=== PATIENT | female | born 1965 | race Caucasian/White ===

== ENCOUNTER 2018-03-02 11:04 | Emergency (ER) | payer SELFPAY ==
[~2018-03-02] VITALS: Ht 165.1 cm; Wt 104.2 kg
[2018-03-02 11:10] VITALS: Ht 165.1 cm; Wt 104.2 kg
[2018-03-02] MEDS ORDERED: ONDANSETRON INJ 2 MG/ML 2 ML VIAL IV STA (11:17)
[2018-03-02] MEDS ORDERED: SODIUM CHLORIDE 0.9% 1000ML 2,000 ML IV STA (11:17)
[2018-03-02] MEDS ORDERED: FAMOTIDINE 20 MG TAB PO ONE (11:30)
--- NOTE | 2018-03-02 11:34 | EMERGENCY ROOM VISIT NOTE ---
History Report prepared by Blanca: Dylon Go Under the Supervision of: Dr. Kevin Johnson M.D. First contact with patient: 11:14 Chief Complaint: VOMITING Stated Complaint: VOMITING,CHILLS,FEVER History of Present Illness The patient is a 52 year old female who presents to the Emergency Room with complaints of worsening vomiting for the past week. She additionally notes that she has fever, chills, body aches, and shortness of breath while vomiting. She states that she had a colonoscopy 5 days ago, and the aches and pains started before that. She denies any diarrhea, chest pain, burning with urination, and cough. The patient states that she called her PCP this morning, and they told her to come to the ED for evaluation. She states that she has hypertension, and her medications have been changed recently due to her pressure being too low. The patient denies any alcohol use, smoking, marijuana use, and any other drug use. She denies any recent tick bites. Source of History: patient Onset: a week ago Position: other (generalized) Quality: other (vomiting) Timing: worsening Associated Symptoms: + fevers, + chills, + SOB, No cough, No chest pain, No diarrhea Note: Associated symptoms: Body aches Review of Systems See HPI for pertinent positives and negatives. A total of ten systems were reviewed and were otherwise negative. Past Medical & Surgical Medical Problems: (1) HTN (hypertension) Surgical Problems: (1) H/O tubal ligation Family History Cancer Hypertension Social History Smoking Status: Never Smoker Marital Status: Housing Status: lives with family Occupation Status: employed Current/Historical Medications Scheduled Famotidine (Pepcid), 20 MG PO BID Ondasetron Odt (Zofran Odt), 4 MG SL Q6H Miscellaneous Medications Lisinopril/Hctz (Zestoretic 20MG/12.5MG), 1 TAB PO Physical Exam Vital Signs Date Time Temp Pulse Resp B/P (MAP) Pulse Ox O2 Delivery O2 Flow Rate FiO2 03/02/18 16:32 85 17 128/77 95 03/02/18 14:50 38.9 101 20 122/59 93 Room Air 03/02/18 12:55 103 16 142/85 94 Room Air 03/02/18 12:13 99 03/02/18 11:10 39.1 110 18 115/68 95 Room Air Physical Exam GENERAL: Awake, alert, fatigued-appearing, in no distress HENT: Normocephalic, atraumatic. Dry mucous membranes otherwise oropharynx unremarkable. EYES: Normal conjunctiva. Sclera non-icteric. NECK: Supple. No nuchal rigidity. FROM. No JVD. RESPIRATORY: Clear to auscultation. CARDIAC: Regular rate, normal rhythm. Extremities warm and well perfused. Pulses equal. ABDOMEN: Mild epigastric discomfort no discrete tenderness. Negative Bravo's sign. Soft, non-distended. No rebound or guarding. No masses. RECTAL: Deferred. MUSCULOSKELETAL: Chest examination reveals no tenderness. The back is symmetrical on inspection without obvious abnormality. There is no CVA tenderness to palpation. No joint edema. LOWER EXTREMITIES: Calves are equal size bilaterally and non-tender. No edema. No discoloration. NEURO: Normal sensorium. No sensory or motor deficits noted. SKIN: No rash or jaundice noted. Medical Decision & Procedures ER Provider Diagnostic Interpretation: Radiology results as stated below per my review and radiologist interpretation: SINGLE VIEW CHEST CLINICAL HISTORY: Generalized abdominal pain. FINDINGS: An AP, portable, upright chest radiograph is obtained. No prior studies are available for comparison at the time of dictation. The examination is degraded by portable technique, large body habitus, and patient rotation. The cardiomediastinal silhouette is unremarkable. The lungs and pleural spaces are clear. No pneumothorax is seen. The bony thorax is grossly intact. IMPRESSION: No active disease in the chest. Electronically signed by: Srinivasan Argueta M.D. 03/02/2018 11:52 AM Dictated Date/Time: 03/02/2018 11:52 AM Laboratory Results 03/02/18 11:40 Red Blood Count 3.95, Mean Corpuscular Volume 83.3, Mean Corpuscular Hemoglobin 29.6, Mean Corpuscular Hemoglobin Concent 35.6, Mean Platelet Volume 9.7, Neutrophils (%) (Auto) 42.1, Lymphocytes (%) (Auto) 47.0, Monocytes (%) (Auto) 8.2, Eosinophils (%) (Auto) 0.2, Basophils (%) (Auto) 2.2, Neutrophils # (Auto) 2.45, Lymphocytes # (Auto) 2.74, Monocytes # (Auto) 0.48, Eosinophils # (Auto) 0.01, Basophils # (Auto) 0.13 03/02/18 11:40 Test 03/02/18 11:37 03/02/18 11:40 03/02/18 13:29 Influenza Type A (RT-PCR) Neg for Influ A (NEG) Influenza Type B (RT-PCR) Neg for Influ B (NEG) White Blood Count 5.83 K/uL (4.8-10.8) Red Blood Count 3.95 M/uL (4.2-5.4) Hemoglobin 11.7 g/dL (12.0-16.0) Hematocrit 32.9 % (37-47) Mean Corpuscular Volume 83.3 fL (80-100) Mean Corpuscular Hemoglobin 29.6 pg (25-34) Mean Corpuscular Hemoglobin Concent 35.6 g/dl (32-36) Platelet Count 153 K/uL (130-400) Mean Platelet Volume 9.7 fL (7.4-10.4) Neutrophils (%) (Auto) 42.1 % Lymphocytes (%) (Auto) 47.0 % Monocytes (%) (Auto) 8.2 % Eosinophils (%) (Auto) 0.2 % Basophils (%) (Auto) 2.2 % Neutrophils # (Auto) 2.45 K/uL (1.4-6.5) Lymphocytes # (Auto) 2.74 K/uL (1.2-3.4) Monocytes # (Auto) 0.48 K/uL (0.11-0.59) Eosinophils # (Auto) 0.01 K/uL (0-0.5) Basophils # (Auto) 0.13 K/uL (0-0.2) RDW Standard Deviation 38.1 fL (36.4-46.3) RDW Coefficient of Variation 12.5 % (11.5-14.5) Immature Granulocyte % (Auto) 0.3 % Immature Granulocyte # (Auto) 0.02 K/uL (0.00-0.02) Anion Gap 6.0 mmol/L (3-11) Est Creatinine Clear Calc Drug Dose 80.6 ml/min Estimated GFR () 76.1 Estimated GFR (Non- 65.6 BUN/Creatinine Ratio 8.3 (10-20) Calcium Level 8.1 mg/dl (8.5-10.1) Magnesium Level 2.0 mg/dl (1.8-2.4) Total Bilirubin 0.6 mg/dl (0.2-1) Direct Bilirubin 0.2 mg/dl (0-0.2) Aspartate Amino Transf (AST/SGOT) 67 U/L (15-37) Alanine Aminotransferase (ALT/SGPT) 50 U/L (12-78) Alkaline Phosphatase 89 U/L (45-117) Total Protein 7.3 gm/dl (6.4-8.2) Albumin 3.1 gm/dl (3.4-5.0) Lipase 115 U/L (73-393) Human Chorionic Gonadotropin, Qual NEG (NEG) Urine Color DK YELLOW Urine Appearance CLOUDY (CLEAR) Urine pH 5.5 (4.5-7.5) Urine Specific [place] 1.024 (1.000-1.030) Urine Protein 2+ (NEG) Urine Glucose (UA) NEG (NEG) Urine Ketones TRACE (NEG) Urine Occult Blood NEG (NEG) Urine Nitrite NEG (NEG) Urine Bilirubin NEG (NEG) Urine Urobilinogen NEG (NEG) Urine Leukocyte Esterase TRACE (NEG) Urine WBC (Auto) 1-5 /hpf (0-5) Urine RBC (Auto) 0-4 /hpf (0-4) Urine Hyaline Casts (Auto) /lpf (0-5) Urine Epithelial Cells (Auto) 5-10 /lpf (0-5) Urine Bacteria (Auto) NEG (NEG) Urine Crystals AMORPHOUS SEDIMENT (NONE Urine Pathogenic Casts /lpf (0) Urine Mucus PRESENT (NONE PRSENT) Laboratory results reviewed by me Medications Administered Medications (Trade) Dose Ordered Sig/Calista Route Start Time Stop Time Status Last Admin Dose Admin Sodium Chloride 2,000 ml @ 999 mls/hr Q2H1M STAT IV 03/02/18 11:17 03/02/18 13:17 DC 03/02/18 11:55 999 MLS/HR Ondansetron HCl (Zofran Inj) 4 mg NOW STAT IV 03/02/18 11:17 03/02/18 11:23 DC 03/02/18 11:54 4 MG Famotidine (Pepcid Tab) 20 mg NOW ONCE PO 03/02/18 11:30 03/02/18 11:31 DC 03/02/18 11:54 20 MG Acetaminophen (Tylenol Tab) 1,000 mg NOW STAT PO 03/02/18 13:30 03/02/18 13:31 DC 03/02/18 13:36 1,000 MG Ketorolac Tromethamine (Toradol Inj) 15 mg NOW STAT IV 03/02/18 15:36 03/02/18 15:37 DC 03/02/18 16:14 15 MG ECG Per My Interpretation Indication: vomiting Rate (beats per minute): 101 Rhythm: sinus tachycardia Findings: no acute ischemic change, other (normal axis) ED Course 1114: The patient was evaluated in room C8. A complete history and physical exam was performed. 1332: I reevaluated the patient, and she was doing okay. 1612: I reevaluated the patient. Discussed results and discharge instructions: she verbalized understanding and agreement. The patient is ready for discharge. Medical Decision I reviewed the patient's past medical history, medications, and the nursing notes as described above. Differential diagnosis: Etiologies such as gastroenteritis, food borne illness, infections, appendicitis , diverticulitis, inflammatory bowel disease, obstruction, GI bleed, biliary pathology, as well as others were entertained. The patient is a 52 y/o woman who presents to the emergency department with f/c , n/v over the past week per HPI. On arrival the patient is fatigue and uncomfortable but in NAD, febrile to 39.1, HR 110s and BP otherwise stable. On exam has mild epigastric discomfort without discrete ttp. Negative Bravo's sign. EKG unremarkable. CXR negative. WBC wnl. Patient feeling improved after IVF, zofran, pepcid, APAP, toradol. HR improved to 80s. Flu negative. Sx likely related to viral GI illness. Plan for pcp f/u. Patient has appointment already scheduled for tomorrow. Findings and plan for follow-up reviewed with patient. Patient agreeable and d/c'd per discharge instructions. Medication Reconcilliation Current Medication List: was personally reviewed by me Blood Pressure Screening Patient's blood pressure: Normal blood pressure Impression Primary Impression: Nausea & vomiting Additional Impression: Gastritis Scribe Attestation The scribe's documentation has been prepared under my direction and personally reviewed by me in its entirety. I confirm that the note above accurately reflects all work, treatment, procedures, and medical decision making performed by me. Departure Information Dispostion Home / Self-Care Prescriptions Famotidine (PEPCID) 20 Mg Tab 20 MG PO BID for 7 Days, #14 TAB Prov: Kevin Johnson M.D. 03/02/18 Ondasetron Odt (ZOFRAN ODT) 4 Mg Tab 4 MG SL Q6H for Nausea, #10 TAB Prov: Kevin Johnson M.D. 03/02/18 Referrals [facility] (PCP) Patient Instructions ED Gastritis, ED Nausea Vomiting, [facility] Additional Instructions Please follow up with your primary care physician tomorrow for re-evaluation. Your symptoms are most likely related to a viral illness/gastritis. Work is Pepcid and Tums as needed for GI upset/acid reduction. Otherwise, your exam, EKG, chest xray, and lab results did not show signs of an emergent condition at this time. Acetaminophen for pain and fevers as needed. Zofran as needed for nausea. Pepcid and Tums as needed for GI upset/acid reduction. Drink plenty of fluids to ensure hydration. Return to the emergency department for worsening symptoms as described in the accompanying instructions. Problem Qualifiers
[2018-03-02 11:51] LABS: BASO % 2.2 %; BASO ABS # 0.13 K/uL (0-0.2); EOS % 0.2 %; EOS ABS # 0.01 K/uL (0-0.5); HEMATOCRIT 32.9 % (37-47); HEMOGLOBIN 11.7 g/dL (12.0-16.0); IG# 0.02 K/uL (0.00-0.02); LYMPH ABS # 2.74 K/uL (1.2-3.4); MEAN CELL VOLUME 83.3 fL (80-100); MEAN CORPUSCULAR HEMOGLOBIN 29.6 pg (25-34); MEAN CORPUSCULAR HGB CONC 35.6 g/dl (32-36); MEAN PLATELET VOLUME 9.7 fL (7.4-10.4); MONO % 8.2 %; MONO ABS # 0.48 K/uL (0.11-0.59); NEUT % 42.1 %; NEUT ABS # 2.45 K/uL (1.4-6.5); PLATELET COUNT 153 K/uL (130-400); RED CELL DISTRIBUTION WIDTH CV 12.5 % (11.5-14.5); RED CELL DISTRIBUTION WIDTH SD 38.1 fL (36.4-46.3); WHITE BLOOD COUNT 5.83 K/uL (4.8-10.8)
--- NOTE | 2018-03-02 11:54 | DIAGNOSTIC IMAGING REPORT ---
SINGLE VIEW CHEST CLINICAL HISTORY: Generalized abdominal pain. FINDINGS: An AP, portable, upright chest radiograph is obtained. No prior studies are available for comparison at the time of dictation. The examination is degraded by portable technique, large body habitus, and patient rotation. The cardiomediastinal silhouette is unremarkable. The lungs and pleural spaces are clear. No pneumothorax is seen. The bony thorax is grossly intact. IMPRESSION: No active disease in the chest. Electronically signed by: Srinivasan Argueta M.D. 03/02/2018 11:52 AM Dictated Date/Time: 03/02/2018 11:52 AM
[2018-03-02] MEDS ORDERED: LISI-787 PO (12:11)
[2018-03-02 12:13] LABS: ALBUMIN 3.1 gm/dl (3.4-5.0); CALCIUM 8.1 mg/dl (8.5-10.1); POTASSIUM 3.1 mmol/L (3.5-5.1); TOTAL PROTEIN 7.3 gm/dl (6.4-8.2)
[2018-03-02] MEDS ORDERED: ACETAMINOPHEN 500 MG TAB PO STA (13:30)
[2018-03-02 14:39] LABS: INFLUENZA A PCR Neg for Influ A (NEG); INFLUENZA B PCR Neg for Influ B (NEG)
[2018-03-02 14:50] VITALS: TEMP 38.9
[2018-03-02] MEDS ORDERED: KETOROLAC TROMETHAMINE 30 MG/ML VIAL IV STA (15:36)
[2018-03-02] MEDS ORDERED: FAMO20TA9 PO ×2 (16:14→16:48)
[2018-03-02] MEDS ORDERED: ONDA4TAB10 SL ×2 (16:14→16:48)
[2018-03-02 16:32] VITALS: BP 128/77; PULSE 85; O2SAT 95
== END 2018-03-02 16:33 | disposition home or self-care (01) ==
LOC: C.EDB 11:05 → C.EDC 16:33
DX: R11.2 Nausea with vomiting, unspecified (principal); K29.70 Gastritis, unspecified, without bleeding; I10 Essential (primary) hypertension

== ENCOUNTER 2018-03-06 10:08 | Emergency (ER) | payer SELFPAY ==
[~2018-03-06] VITALS: Ht 165.1 cm; Wt 105.6 kg
[~2018-03-06 10:08] MED LIST: FAMO20TA9 PO; LISI-787 PO; ONDA4TAB10 SL
[2018-03-06 10:15] VITALS: TEMP 37.7; Ht 165.1 cm; Wt 105.6 kg
[2018-03-06] MEDS ORDERED: ONDANSETRON INJ 2 MG/ML 2 ML VIAL IV STA (10:26)
[2018-03-06] MEDS ORDERED: SODIUM CHLORIDE 0.9% 1000ML 1,000 ML IV STA (10:26)
--- NOTE | 2018-03-06 10:29 | EMERGENCY ROOM VISIT NOTE ---
History Report prepared by Blanca: Ramsey Patterson Under the Supervision of: Dr. Luis Chacon M.D. First contact with patient: 10:19 Chief Complaint: VOMITING Stated Complaint: VOMITING History of Present Illness The patient is a 52 year old female who presents to the Emergency Room with complaints of intermittent vomiting beginning four days ago. The patient states she was evaluated in the ED for similar symptoms on Friday. She reports she has been vomiting at least once a day since then. The patient notes she was treated with Zofran and received fluids. She states she was diagnosed with gastritis and discharged with a homepack of Zofran. The patient reports she took her last Zofran table yesterday, and she is still not feeling well. She notes the Zofran gave her mild relief. The patient denies blood in vomit, black vomit, blood in stool, black stool, vaginal discharge, vaginal bleeding, chest pain, and shortness of breath. She states a history of a tubal ligation. Source of History: patient Onset: four days ago Quality: other (vomiting) Timing: intermittent Modifying Factors (Relieving): other (Zofran) Associated Symptoms: No chest pain, No SOB Note: Denies: blood in vomit, black vomit, blood in stool, black stool, vaginal discharge, vaginal bleeding Review of Systems See HPI for pertinent positives and negatives. A total of ten systems were reviewed and were otherwise negative. Past Medical & Surgical Medical Problems: (1) HTN (hypertension) Surgical Problems: (1) H/O tubal ligation Family History Cancer Hypertension Social History Smoking Status: Former Smoker Marital Status: Housing Status: lives with family Occupation Status: employed Current/Historical Medications Scheduled Ondasetron Odt (Zofran Odt), 4 MG SL TID Miscellaneous Medications Lisinopril/Hctz (Zestoretic 20MG/12.5MG), 1 TAB PO Allergies Coded Allergies: No Known Allergies (Unverified , 03/06/18) Physical Exam Vital Signs Date Time Temp Pulse Resp B/P (MAP) Pulse Ox O2 Delivery O2 Flow Rate FiO2 03/06/18 13:33 93 18 117/47 91 03/06/18 11:46 85 18 119/64 95 Room Air 03/06/18 10:15 37.7 102 20 92/60 95 Room Air Physical Exam Physical Exam GENERAL: She is oriented to person, place, and time. She appears well- developed and well-nourished. She does not appear distressed. ____ HENT: Exam performed. Head: Normocephalic and atraumatic. Right Ear: External ear normal. No mastoid tenderness. Left Ear: External ear normal. No mastoid tenderness. Mouth/Throat: The oropharynx is clear and moist. No trismus in the jaw. No dental abscesses or uvula swelling. No oropharyngeal exudate or tonsillar abscesses. ____ EYES: Conjunctivae and EOM are normal. Pupils are equal, round, and reactive to light. Right eye exhibits no discharge. Left eye exhibits no discharge. No scleral icterus. ____ NECK: Normal range of motion. Neck supple. No JVD present. No spinous process tenderness present. No carotid bruit present. No rigidity. No tracheal deviation and normal range of motion present. No Brudzinski's sign and no Kernig 's sign noted. ____ CV: Normal rate, regular rhythm, normal heart sounds and intact distal pulses. There is no peripheral edema. Palpable radial pulses bue. ____ PULM/CHEST: Effort normal and breath sounds normal. No respiratory distress. No stridor. She has no wheezes. She has no rales. Chest Wall: She exhibits no tenderness. ____ ABD: The abdomen is soft. Bowel sounds are normal. She has no distension. No mass is present. There is tenderness to palpation to the epigastric region. There is no rebound, no guarding, no Bravo's sign and no tenderness at McBurney 's point. Rovsig negative MUSC/SKEL: Normal range of motion. There is no peripheral edema, tenderness or deformity. LYMPH: No cervical adenopathy. ____ NEURO: She is alert and oriented to person, place, and time. She has normal strength. No cranial nerve deficit or sensory deficit. Coordination and gait normal. GCS eye subscore is 4. GCS verbal subscore is 5. GCS motor subscore is 6. Cerebellar tests wnl. ____ SKIN: Skin is warm and dry. She is not diaphoretic. ____ PSYCH: She has a normal mood and affect. Her behavior is normal. Judgment and thought content normal. ____ Medical Decision & Procedures ER Provider Diagnostic Interpretation: Radiology results as stated below per my review and radiologist interpretation: CT SCAN OF THE ABDOMEN AND PELVIS WITH IV CONTRAST CLINICAL HISTORY: Vomiting. Epigastric abdominal pain. COMPARISON STUDY: No priors. TECHNIQUE: Following the IV administration of 93 cc of Optiray 320, CT scan of the abdomen and pelvis is performed from the lung bases to the proximal femora. Images are reviewed in the axial, sagittal, and coronal planes. IV contrast was administered without complication. A dose lowering technique was utilized adhering to the principles of ALARA. CT DOSE: 1035.98 mGycm FINDINGS: Lung bases: The heart is normal in size and without pericardial effusion. The lung bases are clear noting dependent atelectasis. Liver: The contrast-enhanced liver is enlarged, measuring 22.4 cm in length. The liver demonstrates diffusely diminished attenuation consistent with severe hepatic steatosis. Fatty sparing is seen adjacent to gallbladder fossa. There is no intrahepatic biliary ductal dilatation. The hepatic veins and portal veins are patent. Gallbladder: Unremarkable. Spleen: The spleen is enlarged, measuring 15.1 cm in length. Pancreas: Unremarkable. Adrenal glands: Unremarkable. Kidneys: The contrast enhanced kidneys are normal in size and without hydronephrosis. The kidneys enhance symmetrically. Abdominal vasculature: The abdominal aorta is normal in course and caliber noting moderate atherosclerotic calcification. Bowel: No bowel obstruction is identified. The appendix is well-visualized and normal. Peritoneum: There is no intraperitoneal free air or abdominal ascites. There is a fat-containing umbilical hernia. Lymphadenopathy: None. Pelvic viscera: The bladder is normal as visualized. A 3.0 cm lesion within the left uterine body likely represents a fibroid. No adnexal lesion is seen. There are tiny bilateral ovarian follicles. Skeletal structures: No lytic or blastic lesions are seen. Mild degenerative change and scoliosis are noted in the lumbar spine. IMPRESSION: 1. There are no acute infectious or inflammatory findings in the abdomen or pelvis. 2. Hepatomegaly and severe hepatic steatosis. 3. Splenomegaly. 4. A 3.0 cm lesion within the left uterine body is pathologically indeterminant but typical in appearance for a fibroid. 5. Additional findings as above. Electronically signed by: Srinivasan Argueta M.D. 03/06/2018 12:25 PM Dictated Date/Time: 03/06/2018 12:19 PM Laboratory Results 03/06/18 10:57 Red Blood Count 3.71, Mean Corpuscular Volume 83.3, Mean Corpuscular Hemoglobin 28.8, Mean Corpuscular Hemoglobin Concent 34.6, Mean Platelet Volume 9.2 03/06/18 10:57 Test 03/06/18 10:57 White Blood Count 13.30 K/uL (4.8-10.8) Red Blood Count 3.71 M/uL (4.2-5.4) Hemoglobin 10.7 g/dL (12.0-16.0) Hematocrit 30.9 % (37-47) Mean Corpuscular Volume 83.3 fL (80-100) Mean Corpuscular Hemoglobin 28.8 pg (25-34) Mean Corpuscular Hemoglobin Concent 34.6 g/dl (32-36) Platelet Count 196 K/uL (130-400) Mean Platelet Volume 9.2 fL (7.4-10.4) RDW Standard Deviation 40.1 fL (36.4-46.3) RDW Coefficient of Variation 13.2 % (11.5-14.5) Neutrophils % (Manual) 26.8 % Lymphocytes % (Manual) 9.8 % Variant Lymphocytes % (manual) 60.7 % Monocytes % (Manual) 2.7 % Neutrophils # (Manual) 3.56 K/uL (1.4-6.5) Total Absolute Neutrophils 3.56 K/uL (1.4-6.5) Lymphocytes # (Manual) 1.30 K/uL (1.2-3.4) Absolute Variant Lymphocytes 8.07 K/uL Total Absolute Lymphocytes 9.38 K/uL (1.2-3.4) Monocytes # (Manual) 0.36 K/uL (0.11-0.59) Blood Smear Review Anion Gap 6.0 mmol/L (3-11) Est Creatinine Clear Calc Drug Dose 96.7 ml/min Estimated GFR () 93.9 Estimated GFR (Non- 81.0 BUN/Creatinine Ratio 11.4 (10-20) Lactic Acid Level 1.2 mmol/L (0.4-2.0) Calcium Level 7.8 mg/dl (8.5-10.1) Total Bilirubin 0.5 mg/dl (0.2-1) Direct Bilirubin 0.2 mg/dl (0-0.2) Aspartate Amino Transf (AST/SGOT) 91 U/L (15-37) Alanine Aminotransferase (ALT/SGPT) 70 U/L (12-78) Alkaline Phosphatase 84 U/L (45-117) Total Protein 6.7 gm/dl (6.4-8.2) Albumin 2.7 gm/dl (3.4-5.0) Lipase 82 U/L (73-393) Laboratory results reviewed by me Medications Administered Medications (Trade) Dose Ordered Sig/Calista Route Start Time Stop Time Status Last Admin Dose Admin Sodium Chloride 1,000 ml @ 999 mls/hr Q1H1M STAT IV 03/06/18 10:26 03/06/18 11:26 DC 03/06/18 10:26 999 MLS/HR Ondansetron HCl (Zofran Inj) 4 mg NOW STAT IV 03/06/18 10:26 03/06/18 10:28 DC 03/06/18 11:02 4 MG ED Course 1022: The patient was evaluated in room B02. A complete history and physical exam was performed. EMR reviewed which showed labs within normal limits and a negative chest x-ray on previous ED visit within the last week. 1026: Ordered Ondansetron HCl 4mg IV, Sodium Chloride 1000 ml @ 999 mls/hr IV 1243: I reevaluated the patient. Vital signs stable. Repeat abdominal exam shows no tenderness to palpation. CT of the abdomen showed no acute process. Mild leukocytosis. She states she feels better after fluids and Zofran. She will be discharged with a prescription for Zofran ODT. DISCHARGE - Plan of care discussed with patient and questions answered. The patient was given both verbal and printed discharge instructions. The patient verbalized understanding and ability to comply. The patient is to seek outpatient follow up as noted in the discharge instructions. The patient verbalized understanding and ability to comply. The patient is discharged in stable condition. The patient was instructed to return for worsening symptoms. Medical Decision Vital signs stable. Repeat abdominal exam shows no tenderness to palpation. CT of the abdomen showed no acute process. Mild leukocytosis. She states she feels better after fluids and Zofran. She will be discharged with a prescription for Zofran ODT. DISCHARGE - Plan of care discussed with patient and questions answered. The patient was given both verbal and printed discharge instructions. The patient verbalized understanding and ability to comply. The patient is to seek outpatient follow up as noted in the discharge instructions. The patient verbalized understanding and ability to comply. The patient is discharged in stable condition. The patient was instructed to return for worsening symptoms. Medication Reconcilliation Current Medication List: was personally reviewed by me Blood Pressure Screening Patient's blood pressure: Normal blood pressure Blood pressure disposition: Did not require urgent referral Impression Primary Impression: Vomiting Scribe Attestation The scribe's documentation has been prepared under my direction and personally reviewed by me in its entirety. I confirm that the note above accurately reflects all work, treatment, procedures, and medical decision making performed by me. The chart was completed utilizing [employer] Speech voice recognition software. Grammatical errors, random word insertions, pronoun errors, and incomplete sentences are an occasional consequence of this system due to software limitations, ambient noise, and hardware issues. Any formal questions or concerns about the content, text, or information contained within the body of this dictation should be directly addressed to the physician for clarification. Departure Information Dispostion Home / Self-Care Prescriptions Ondasetron Odt (ZOFRAN ODT) 4 Mg Tab 4 MG SL TID for Nausea, #30 TAB Prov: Lusi Chacon M.D. 03/06/18 Referrals [facility] (PCP) Forms HOME CARE DOCUMENTATION FORM, IMPORTANT VISIT INFORMATION Patient Instructions ED Nausea Vomiting, My [facility] Problem Qualifiers Primary Impression: Vomiting Vomiting type: unspecified Vomiting Intractability: non-intractable Nausea presence: with nausea Qualified Codes: R11.2 - Nausea with vomiting, unspecified
[2018-03-06] MEDS ORDERED: OPTIRAY 320 IV PRN (10:45)
[2018-03-06 11:09] LABS: HEMATOCRIT 30.9 % (37-47); HEMOGLOBIN 10.7 g/dL (12.0-16.0); MEAN CELL VOLUME 83.3 fL (80-100); MEAN CORPUSCULAR HEMOGLOBIN 28.8 pg (25-34); MEAN CORPUSCULAR HGB CONC 34.6 g/dl (32-36); MEAN PLATELET VOLUME 9.2 fL (7.4-10.4); PLATELET COUNT 196 K/uL (130-400); RED CELL DISTRIBUTION WIDTH CV 13.2 % (11.5-14.5); RED CELL DISTRIBUTION WIDTH SD 40.1 fL (36.4-46.3)
[2018-03-06 11:32] LABS: ALBUMIN 2.7 gm/dl (3.4-5.0); CALCIUM 7.8 mg/dl (8.5-10.1); CREATININE 0.84 mg/dl (0.60-1.20); POTASSIUM 3.6 mmol/L (3.5-5.1); TOTAL PROTEIN 6.7 gm/dl (6.4-8.2)
--- NOTE | 2018-03-06 12:27 | DIAGNOSTIC IMAGING REPORT ---
CT SCAN OF THE ABDOMEN AND PELVIS WITH IV CONTRAST CLINICAL HISTORY: Vomiting. Epigastric abdominal pain. COMPARISON STUDY: No priors. TECHNIQUE: Following the IV administration of 93 cc of Optiray 320, CT scan of the abdomen and pelvis is performed from the lung bases to the proximal femora. Images are reviewed in the axial, sagittal, and coronal planes. IV contrast was administered without complication. A dose lowering technique was utilized adhering to the principles of ALARA. CT DOSE: 1035.98 mGycm FINDINGS: Lung bases: The heart is normal in size and without pericardial effusion. The lung bases are clear noting dependent atelectasis. Liver: The contrast-enhanced liver is enlarged, measuring 22.4 cm in length. The liver demonstrates diffusely diminished attenuation consistent with severe hepatic steatosis. Fatty sparing is seen adjacent to gallbladder fossa. There is no intrahepatic biliary ductal dilatation. The hepatic veins and portal veins are patent. Gallbladder: Unremarkable. Spleen: The spleen is enlarged, measuring 15.1 cm in length. Pancreas: Unremarkable. Adrenal glands: Unremarkable. Kidneys: The contrast enhanced kidneys are normal in size and without hydronephrosis. The kidneys enhance symmetrically. Abdominal vasculature: The abdominal aorta is normal in course and caliber noting moderate atherosclerotic calcification. Bowel: No bowel obstruction is identified. The appendix is well-visualized and normal. Peritoneum: There is no intraperitoneal free air or abdominal ascites. There is a fat-containing umbilical hernia. Lymphadenopathy: None. Pelvic viscera: The bladder is normal as visualized. A 3.0 cm lesion within the left uterine body likely represents a fibroid. No adnexal lesion is seen. There are tiny bilateral ovarian follicles. Skeletal structures: No lytic or blastic lesions are seen. Mild degenerative change and scoliosis are noted in the lumbar spine. IMPRESSION: 1. There are no acute infectious or inflammatory findings in the abdomen or pelvis. 2. Hepatomegaly and severe hepatic steatosis. 3. Splenomegaly. 4. A 3.0 cm lesion within the left uterine body is pathologically indeterminant but typical in appearance for a fibroid. 5. Additional findings as above. Electronically signed by: Srinivasan Argueta M.D. 03/06/2018 12:25 PM Dictated Date/Time: 03/06/2018 12:19 PM
[2018-03-06] MEDS ORDERED: ONDA4TAB10 SL (12:55)
[2018-03-06 13:33] VITALS: BP 117/47; PULSE 93; O2SAT 91
[2018-03-08] MEDS ORDERED: FAMO20TA11 PO (20:04)
[2018-03-08] MEDS ORDERED: PROM12.57 PO (22:28)
[2018-03-08] MEDS ORDERED: PENI-82 PO (22:44)
== END 2018-03-06 13:34 | disposition home or self-care (01) ==
LOC: C.EDB 10:09
DX: R11.2 Nausea with vomiting, unspecified (principal); I10 Essential (primary) hypertension; Z87.891 Personal history of nicotine dependence

== ENCOUNTER 2023-05-28 19:49 | Inpatient (IN) ==
[2023-05-28] MEDS ORDERED: LABETALOL HCL IV 5 MG/ML 20ML IV STA ×4 (19:54→20:42)
[2023-05-28] MEDS ORDERED: IOVERSOL 350 MG 125mL Prefilled Syringe IV ONE (20:01)
--- NOTE | 2023-05-28 20:10 | Emergency Department Note ---
Impression & Plan Stroke-like symptom, Hypertension ED Provider Note NAME: IVETT AGRAWAL AGE: 58 SEX: F : 1965 ARRIVES VIA: Ambulance INFORMANT: Patient, EMS personnel ED PROVIDER(S): Lj Chan DO CHIEF COMPLAINT: strokelike symptoms HPI: The patient is a 58-year-old female who presented to the emergency department by ambulance for strokelike symptoms. The patient was noted to have headache throughout the day. She then started noticing right-sided numbness and tingling. She also started noticing right-sided weakness. The patient called 911. She thinks her symptoms began around 6 PM. 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 She denies having any vomiting. She denies having any recent trauma. She notes that the headache is moderate. She denies having any neck stiffness. There is no reported seizure. The patient reportedly had very high blood pressure prior to arrival. ROS: See above HPI for pertinent positives & negatives. A total of 10 systems reviewed and were otherwise negative. PAST MEDICAL HISTORY: See Below PAST SURGICAL HISTORY: See Below FAMILY HISTORY: See Below SOCIAL HISTORY: See Below HOME MEDICATIONS: See Below ALLERGIES: See Below VITALS: See Below PHYSICAL EXAMINATION: GENERAL: Patient is awake alert in no acute distress patient is resting comfortably and showing no signs of anxiety EYES: The conjunctivae are clear. The pupils are round and reactive. EARS, NOSE, MOUTH AND THROAT: The nose is without any evidence of any deformity. Mucous membranes are moist. Tongue is midline. NECK: The neck is nontender and supple. RESPIRATORY: Normal respiratory effort is noted there is no evidence of wheezing rhonchi or rales CARDIOVASCULAR: Regular rate and rhythm noted there no murmurs rubs or gallops normal S1 normal S2. GASTROINTESTINAL: The abdomen is soft. Abdomen is nontender. MUSCULOSKELETAL/EXTREMITIES: There is no evidence of gross deformity full range of motion is noted in the hips and shoulders. SKIN: There is no obvious evidence of any rash. There are no petechiae, pallor or cyanosis noted. NEUROLOGIC: Patient is awake alert and oriented x3. Speech was clear. There is no facial droop. There was a drift in the right upper extremity. The patient is able to hold each leg off the bed however the right leg drops sooner than the left and she cannot lift the right lower extremity against my strength. MEDICAL DECISION MAKING: The patient is a 58-year-old female who presented to the emergency department by ambulance for strokelike symptoms. The patient was brought to the emergency department she was made a stroke alert upon arrival after my initial evaluation. The patient had right-sided weakness as well as paresthesias. The patient's initial CAT scan did not show any acute intracranial hemorrhage or mass effect. The decision was made to give TNK however the patient had a very elevated blood pressure upon arrival to the emergency department which required aggressive management with IV medications. The patient was reevaluated multiple times. When the blood pressure was improved she was felt to be a good candidate for TNK administration. There was some confusion about the patient's actual weight and the patient required a second dose of TNK to give her a full dose. She was reevaluated multiple times. Blood pressure significantly improved. I discussed the patient's laboratory and radiographic studies with her. I consented the patient verbally for TNK. She was agreeable. [facility] have agreed to evaluate the patient in the emergency department for further management and disposition. Triage Nursing notes reviewed. Prior medical records reviewed Vital Signs: reviewed and remarkable for initial hypertension. Differential diagnosis: Infection, dehydration, metabolic abnormality, hypo/hyperglycemia, electrolyte disturbance, anemia, hypoxia, cardiac sources, intracerebral event, toxicologic, neurologic, as well as other pathologies. ER treatment provided: See below Diagnostics interpreted by me: ECG: EKG was obtained in the emergency department. My interpretation is normal sinus rhythm at 78 bpm. There was no ectopy. Nonspecific ST segment depressions were noted. This was compared to a tracing from March 02, 2018. The ST segment abnormalities are new compared to previous tracing. Cardiac Monitoring: An order was placed for continuous cardiac monitoring. The monitor shows a rate of 79 bpm with sinus rhythm. Laboratory studies: As stated above and show below. Imaging studies: See below. Radiographic imaging was reviewed by myself Consultation(s): I discussed this case with Dr. Saavedra who [facility] ED COURSE: Multiple delays were encountered in this patient interaction. The patient was not made a stroke alert by the prehospital personnel and was made a stroke alert only after she was evaluated by myself. The patient's blood pressure was very difficult to manage and required multiple doses of IV antihypertensive medicatio n. The patient's CAT scans were not marked as a stroke and the telemetry radiology group did not read the CTs as stat. The delay was addressed. The patient also had the incorrect dose of TNKase sent to the emergency department. Procedures: none Critical Care: I have personally spent greater than 45 minutes of critical care time in the direct management of this patient. This includes bedside care, interpretation of diagnostic studies, and testing, discussion with consultants, patient, and family members, and other required patient management activities. This 45 minutes is in excess of all separately billable procedures. Thrombolytics MDM Reason(s) for Delay: There were multiple reasons for delay in TNK administration. Patient required aggressive blood pressure control with IV medications. The patient's CT reports were delayed. Past Med/Surg History Medical History Chronic GERD Generalized arthritis Sleep apnea Surgical History Elective H/O tubal ligation History of IUFD S/P tubal ligation Family History Mother Breast cancer Father Colorectal cancer Heart disease Grandmother (Maternal) Hypertension Brother Leukemia Grandfather (Maternal) Lymphoma Social History Smoking Status: Former smoker Tobacco Type: Cigarettes Do You Dip or Chew Tobacco: No; Hx Alcohol Use: No Preferred Language: Monegasque Feels Safe at Home: Yes Physical Activity Frequency: Other Physical Activity Frequency Comment: occasional Allergies Allergies Allergy/AdvReac Type Severity Reaction Status Date / Time bee venom protein (honey bee) Allergy Severe Anaphylaxis Verified 05/28/23 21:32 Home Meds Home Medications Medication Instructions Recorded Confirmed No Known Home Medications 05/28/23 05/28/23 Results & Data (ED) Vital Signs Vital Signs - 24 hr 05/28/23 19:53 05/28/23 19:53 05/28/23 20:22 Temperature Temperature Source Pulse Rate 99 H 99 H Pulse Rate [Apical] 79 Respiratory Rate 18 Respiratory Effort / Characteristics Respiratory Depth Respiratory Pattern Blood Pressure 279/152 H Blood Pressure [Left Arm] 226/126 H Blood Pressure Mean [Left Arm] 159 Blood Pressure Position [Left Arm] Sitting Pulse Oximetry 95 Oxygen Delivery Method Room Air Sepsis Recent Fever Within 48 Hours No Sepsis New/Unexplained Change in Mental Status N/A Sepsis Action Taken by Nursing No Action Required 05/28/23 20:33 05/28/23 20:34 05/28/23 20:38 Temperature Temperature Source Pulse Rate 69 Pulse Rate [Apical] 69 Respiratory Rate 18 Respiratory Effort / Characteristics Non-Labored Spontaneous Respiratory Depth Normal Respiratory Pattern Regular Blood Pressure 219/116 H Blood Pressure [Left Arm] 244/128 H Blood Pressure Mean [Left Arm] 166 Blood Pressure Position [Left Arm] Lying Pulse Oximetry 94 95 Oxygen Delivery Method Room Air Room Air Sepsis Recent Fever Within 48 Hours Sepsis New/Unexplained Change in Mental Status Sepsis Action Taken by Nursing 05/28/23 20:39 05/28/23 20:40 05/28/23 20:43 Temperature Temperature Source Pulse Rate 68 67 71 Pulse Rate [Apical] Respiratory Rate Respiratory Effort / Characteristics Respiratory Depth Respiratory Pattern Blood Pressure 219/116 H 221/117 H 203/107 H Blood Pressure [Left Arm] Blood Pressure Mean [Left Arm] Blood Pressure Position [Left Arm] Pulse Oximetry Oxygen Delivery Method Sepsis Recent Fever Within 48 Hours Sepsis New/Unexplained Change in Mental Status Sepsis Action Taken by Nursing 05/28/23 20:53 05/28/23 20:54 05/28/23 20:56 Temperature Temperature Source Pulse Rate 74 76 Pulse Rate [Apical] 72 Respiratory Rate 20 Respiratory Effort / Characteristics Respiratory Depth Respiratory Pattern Blood Pressure 212/113 H 212/113 H Blood Pressure [Left Arm] 182/90 H Blood Pressure Mean [Left Arm] 120 Blood Pressure Position [Left Arm] Lying Pulse Oximetry 94 Oxygen Delivery Method Room Air Sepsis Recent Fever Within 48 Hours Sepsis New/Unexplained Change in Mental Status Sepsis Action Taken by Nursing 05/28/23 20:58 05/28/23 21:10 05/28/23 21:20 Temperature 37.1 C Temperature Source Oral Pulse Rate Pulse Rate [Apical] 73 77 81 Respiratory Rate 18 18 19 Respiratory Effort / Characteristics Non-Labored Spontaneous Non-Labored Spontaneous Respiratory Depth Normal Normal Respiratory Pattern Regular Regular Blood Pressure Blood Pressure [Left Arm] 167/78 H 184/81 H 159/89 H Blood Pressure Mean [Left Arm] 107 115 112 Blood Pressure Position [Left Arm] Lying Lying Lying Pulse Oximetry 95 93 96 Oxygen Delivery Method Room Air Room Air Room Air Sepsis Recent Fever Within 48 Hours Sepsis New/Unexplained Change in Mental Status Sepsis Action Taken by Nursing 05/28/23 21:30 05/28/23 21:35 05/28/23 21:50 Temperature 36.9 C Temperature Source Oral Pulse Rate Pulse Rate [Apical] 71 95 H Respiratory Rate 18 16 Respiratory Effort / Characteristics Non-Labored Spontaneous Non-Labored Spontaneous Respiratory Depth Normal Normal Respiratory Pattern Regular Regular Blood Pressure Blood Pressure [Left Arm] 133/73 136/61 136/82 Blood Pressure Mean [Left Arm] 93 86 100 Blood Pressure Position [Left Arm] Lying Semi-fowlers Semi-fowlers Pulse Oximetry 95 95 Oxygen Delivery Method Room Air Room Air Sepsis Recent Fever Within 48 Hours Sepsis New/Unexplained Change in Mental Status Sepsis Action Taken by Nursing 05/28/23 22:05 05/28/23 20:06 Temperature Temperature Source Pulse Rate 78 Pulse Rate [Apical] 79 Respiratory Rate 18 Respiratory Effort / Characteristics Respiratory Depth Respiratory Pattern Blood Pressure Blood Pressure [Left Arm] 99/68 L Blood Pressure Mean [Left Arm] 78 Blood Pressure Position [Left Arm] Semi-fowlers Pulse Oximetry 95 Oxygen Delivery Method Room Air Sepsis Recent Fever Within 48 Hours Sepsis New/Unexplained Change in Mental Status Sepsis Action Taken by Care Home Medications Current Medication List: was personally reviewed by me Laboratory Data Attestation: I reviewed the patient's lab results. 05/28/23 20:13 05/28/23 20:13 Lab Results 05/28/23 05/28/23 05/28/23 Range/Units 20:09 20:12 20:13 WBC 8.27 (4.8-10.8) K/ul RBC 4.82 (4.20-5.40) M/uL Hgb 13.8 (12.0-16.0) g/dl POC Hgb (12.0-16.0) g/dl Hct 38.4 (37.0-47.0) % POC Hct (37-47) % MCV 79.7 L (80.0-100.0) fL MCH 28.6 (25.0-34.0) pg MCHC 35.9 (32.0-36.0) g/dL RDW Std Deviation 35.3 L (36.4-46.3) fL RDW Coeff of Tenzin 12.3 (11.5-14.5) % Plt Count 260 (130-400) K/uL MPV 9.7 (9.4-12.4) fL Immature Gran % (Auto) 0.1 % Neut % (Auto) 60.4 % Lymph % (Auto) 32.2 % Bullitt % (Auto) 5.8 % Eos % (Auto) 1.0 % Baso % (Auto) 0.5 % Neut # (Auto) 5.00 (1.40-6.50) K/uL Lymph # (Auto) 2.66 (1.2-3.4) K/uL Bullitt # (Auto) 0.48 (0.11-0.59) K/uL Eos # (Auto) 0.08 (0-0.50) K/uL Baso # (Auto) 0.04 (0-0.2) K/uL Immature Gran # (Auto) 0.01 (0.01-0.20) K/uL PT 10.8 (9.0-12.0) Seconds INR 1.0 (0.9-1.1) APTT 29.2 (21.0-31.0) Seconds PTT Ratio 1.0 POC Sodium (135-144) mmol/L Sodium (136-145) mmol/L POC Potassium (3.3-5.0) mmol/L Potassium (3.5-5.1) mmol/L POC Chloride (101-112) mmol/L Chloride (98-107) mmol/L Carbon Dioxide (21-32) mmol/L POC Total CO2 (24-31) mmol/L Anion Gap (3-11) POC Anion Gap (16-25) mmol/L POC BUN (7-18) mg/dl BUN (6-23) mg/dl Creatinine (0.6-1.2) mg/dl POC Creatinine (0.6-1.3) mg/dl Est Cr Clr Drug Dosing ml/min Est GFR ( Amer) ml/min Est GFR (Non-Af Amer) ml/min BUN/Creatinine Ratio (10-20) Glucose (70-99(Fasting)) mg/dl POC Glucose 119 H (70-99) mg/dl POC Glucose (other) (70-99) mg/dl Calcium (8.6-10.3) mg/dl POC Ioniz Calcium Nawaf (1.12-1.32) mmol/l Magnesium (1.7-2.4) mg/dl Total Bilirubin (0.2-1.0) mg/dl AST (13-39) U/L ALT (7-52) U/L Alkaline Phosphatase (34-104) U/L Troponin I High Sens (0-14) pg/ml Total Protein (6.0-8.3) gm/dl Albumin (3.4-5.0) gm/dl Globulin (2.5-4.0) gm/dl Albumin/Globulin Ratio (0.9-2) Urine Color Urine Appearance (Clear) Urine pH (4.5-7.5) Ur Specific Barnett (1.000-1.030) Urine Protein (Negative) Urine Glucose (UA) (Negative) Urine Ketones (Negative) Urine Blood (Negative) Urine Nitrite (Negative) Urine Bilirubin (Negative) Urine Urobilinogen (Negative) Ur Leukocyte Esterase (Negative) Urine WBC (Auto) (0-5) /hpf Urine RBC (Auto) (0-4) /hpf U Hyaline Cast (Auto) (0-5) /lpf U Epithel Cells (Auto) (0-5) /lpf Urine Bacteria (Auto) (Negative) 05/28/23 05/28/23 05/28/23 Range/Units 20:13 20:26 20:50 WBC (4.8-10.8) K/ul RBC (4.20-5.40) M/uL Hgb (12.0-16.0) g/dl POC Hgb 13.9 (12.0-16.0) g/dl Hct (37.0-47.0) % POC Hct 41 (37-47) % MCV (80.0-100.0) fL MCH (25.0-34.0) pg MCHC (32.0-36.0) g/dL RDW Std Deviation (36.4-46.3) fL RDW Coeff of Tenzin (11.5-14.5) % Plt Count (130-400) K/uL MPV (9.4-12.4) fL Immature Gran % (Auto) % Neut % (Auto) % Lymph % (Auto) % Bullitt % (Auto) % Eos % (Auto) % Baso % (Auto) % Neut # (Auto) (1.40-6.50) K/uL Lymph # (Auto) (1.2-3.4) K/uL Bullitt # (Auto) (0.11-0.59) K/uL Eos # (Auto) (0-0.50) K/uL Baso # (Auto) (0-0.2) K/uL Immature Gran # (Auto) (0.01-0.20) K/uL PT (9.0-12.0) Seconds INR (0.9-1.1) APTT (21.0-31.0) Seconds PTT Ratio POC Sodium 138 (135-144) mmol/L Sodium 136 (136-145) mmol/L POC Potassium 3.9 (3.3-5.0) mmol/L Potassium 3.4 L (3.5-5.1) mmol/L POC Chloride 103 (101-112) mmol/L Chloride 101 (98-107) mmol/L Carbon Dioxide 26 (21-32) mmol/L POC Total CO2 26 (24-31) mmol/L Anion Gap 9 (3-11) POC Anion Gap 14.0 L (16-25) mmol/L POC BUN 8 (7-18) mg/dl BUN 8 (6-23) mg/dl Creatinine 0.66 (0.6-1.2) mg/dl POC Creatinine 0.6 (0.6-1.3) mg/dl Est Cr Clr Drug Dosing 99.8 ml/min Est GFR ( Amer) 114.5 ml/min Est GFR (Non-Af Amer) 98.8 ml/min BUN/Creatinine Ratio 12.1 (10-20) Glucose 112 H (70-99(Fasting)) mg/dl POC Glucose (70-99) mg/dl POC Glucose (other) 114 H (70-99) mg/dl Calcium 8.9 (8.6-10.3) mg/dl POC Ioniz Calcium Nawaf 1.04 L (1.12-1.32) mmol/l Magnesium 2.1 (1.7-2.4) mg/dl Total Bilirubin 0.6 (0.2-1.0) mg/dl AST 16 (13-39) U/L ALT 8 (7-52) U/L Alkaline Phosphatase 65 (34-104) U/L Troponin I High Sens 12.6 (0-14) pg/ml Total Protein 7.4 (6.0-8.3) gm/dl Albumin 4.3 (3.4-5.0) gm/dl Globulin 3.1 (2.5-4.0) gm/dl Albumin/Globulin Ratio 1.4 (0.9-2) Urine Color Yellow Urine Appearance Clear (Clear) Urine pH 8.0 H (4.5-7.5) Ur Specific Barnett 1.018 (1.000-1.030) Urine Protein 1+ H (Negative) Urine Glucose (UA) Negative (Negative) Urine Ketones Negative (Negative) Urine Blood Negative (Negative) Urine Nitrite Negative (Negative) Urine Bilirubin Negative (Negative) Urine Urobilinogen Negative (Negative) Ur Leukocyte Esterase Negative (Negative) Urine WBC (Auto) 1-5 (0-5) /hpf Urine RBC (Auto) 0-4 (0-4) /hpf U Hyaline Cast (Auto) 0 (0-5) /lpf U Epithel Cells (Auto) 0-5 (0-5) /lpf Urine Bacteria (Auto) Negative (Negative) Administered Medications Nicardipine HCl 25 mg/ Sodium (Chloride) 250 mls @ 50 mls/hr IV .Q5H SAY; Protocol Stop: 06/27/23 20:44 Last Titration: 05/28/23 22:09 Dose: 0 mg/hr, 0 mls/hr Documented By: Titration: 05/28/23 21:32 Dose: 5 mg/hr, 50 mls/hr Documented By: Titration: 05/28/23 20:56 Dose: 7.5 mg/hr, 75 mls/hr Documented By: Admin: 05/28/23 20:49 Dose: 5 mg/hr, 50 mls/hr Documented By: Co-signed By: GABRIELLE Discontinued Medications Tenecteplase 19 mg/ Syringe 3.8 mls @ 45.6 mls/min IV NOW ONE; Protocol Stop: 05/28/23 20:48 Last Admin: 05/28/23 21:05 Dose: 45.6 mls/min Documented By: Co-signed By: GABRIELLE Magnesium Sulfate/Dextrose (Magnesium Sulfate / D5w) 1 gm in 100 mls @ 100 mls/hr IV NOW STA Stop: 05/28/23 21:41 Last Infusion: 05/28/23 21:44 Dose: 0 mls/hr Documented By: Admin: 05/28/23 20:48 Dose: 100 mls/hr Documented By: Tenecteplase 3 mg/ Syringe 0.6 mls @ 45.6 mls/min IV NOW ONE; Protocol Stop: 05/28/23 21:16 Last Admin: 05/28/23 21:10 Dose: 45.6 mls/min Documented By: Co-signed By: GABRIELLE Ioversol (Ioversol 350 Mg 125ml Prefilled Syringe) 120 ml IV ONCE ONE Stop: 05/28/23 20:02 Last Admin: 05/28/23 20:02 Dose: 120 ml Documented By: TEJ Labetalol HCl (Labetalol Hcl Iv 5 Mg/Ml 20ml) 10 mg IV NOW STA Stop: 05/28/23 19:55 Last Admin: 05/28/23 19:53 Dose: 10 mg Documented By: Co-signed By: SAMINA Labetalol HCl (Labetalol Hcl Iv 5 Mg/Ml 20ml) 10 mg IV NOW STA Stop: 05/28/23 20:19 Last Admin: 05/28/23 20:20 Dose: 10 mg Documented By: Co-signed By: GABRIELLE Labetalol HCl (Labetalol Hcl Iv 5 Mg/Ml 20ml) 10 mg IV NOW STA Stop: 05/28/23 20:37 Last Admin: 05/28/23 20:40 Dose: 10 mg Documented By: Co-signed By: GABRIELLE Labetalol HCl (Labetalol Hcl Iv 5 Mg/Ml 20ml) 10 mg IV NOW STA Stop: 05/28/23 20:43 Last Admin: 05/28/23 20:43 Dose: 10 mg Documented By: Co-signed By: GABRIELLE Miscellaneous (Stat Iv) 1 each N/A NOW STA Stop: 05/28/23 20:38 Last Admin: 05/28/23 21:36 Dose: 1 each Documented By: Sodium Chloride (Sodium Chloride 0.9% 10ml Flush) 20 ml IV NOW STA Stop: 05/28/23 20:38 Last Admin: 05/28/23 21:05 Dose: 20 ml Documented By: Imaging Data Attestation: I personally reviewed and interpreted this imaging study as foll ows: My Impression: 1 view chest x-ray was obtained in the emergency department. My interpretation is no free air or definite infiltrate, final report below. CT of the brain was obtained in the emergency department. My interpretation is no intracranial hemorrhage or mass effect, final report below. Radiologist's Impression: Head CT 05/28/23 19:52 CR Exam(s): CT HEAD Without Contrast EXAM: CT Head Without Intravenous Contrast CLINICAL HISTORY: Reason for exam: neuro deficit, acute stroke suspected. TECHNIQUE: Axial computed tomography images of the head/brain without intravenous contrast. CTDI is 47.42 mGy and DLP is 871.05 mGy-cm. Automated exposure control was utilized for the study. A dose lowering technique was utilized adhering to the principles of ALARA. COMPARISON: None FINDINGS: Brain: No acute infarct or hemorrhage. No extra-axial fluid collection. No mass effect or midline shift. Remote lacunar infarct versus perivascular space in the right basal ganglia. Mild chronic small vessel ischemic change. Ventricles and sulci: Normal. No ventriculomegaly or intraventricular hemorrhage. Bones: Possible osteoma or other bony excrescence along the outer table of the right frontotemporal bone. No acute fracture. Subcutaneous tissues: Normal. Sinuses: Normal. No air-fluid levels or mucosal thickening. Mastoid air cells: Normal. Orbits: Grossly unremarkable. IMPRESSION: No acute intracranial abnormality. If there is persistent concern for acute infarct, consider further evaluation with MRI. Communications: Call Doctor Stroke Electronically signed by: Vika Martinez M.D. 05/28/23 20:55 PM Head CTA 05/28/23 19:52 CR Exam(s): CTA HEAD With Contrast IV Amt: 120ml EXAM: CT Angiography Head With Intravenous Contrast CLINICAL HISTORY: Reason for exam: neuro deficit, acute stroke suspected. TECHNIQUE: Axial computed tomographic angiography images of the head with intravenous contrast. CTDI is 47.42 mGy and DLP is 871.05 mGy-cm. Automated exposure control was utilized for the study. A dose lowering technique was utilized adhering to the principles of ALARA. MIP reconstructed images were created and reviewed. CONTRAST: Patient received 120ml of IV contrast COMPARISON: None FINDINGS: Right internal carotid artery: Minimal atherosclerotic calcification in the distal right ICA. No significant stenosis. No aneurysm. Right anterior cerebral artery: Unremarkable. No occlusion or significant stenosis. No aneurysm. Right middle cerebral artery: Unremarkable. No occlusion or significant stenosis. No aneurysm. Right posterior cerebral artery: Unremarkable. No occlusion or significant stenosis. No aneurysm. Right vertebral artery: Unremarkable as visualized. Left internal carotid artery: Minimal atherosclerotic calcification in the distal left ICA. No significant stenosis. No aneurysm. Left anterior cerebral artery: Unremarkable. No occlusion or significant stenosis. No aneurysm. Left middle cerebral artery: Unremarkable. No occlusion or significant stenosis. No aneurysm. Left posterior cerebral artery: Unremarkable. No occlusion or significant stenosis. No aneurysm. Left vertebral artery: Unremarkable as visualized. Basilar artery: Unremarkable. No occlusion or significant stenosis. No aneurysm. IMPRESSION: No significant stenosis, occlusion, or aneurysm in the central or large intracranial arteries. Communications: Call Doctor Stroke Electronically signed by: Vika Martinez M.D. 05/28/23 20:52 PM Neck CTA 05/28/23 19:52 CR Exam(s): CTA NECK With Contrast IV Amt: 120ml EXAM: CT Angiography Neck With Intravenous Contrast CLINICAL HISTORY: Reason for exam: neuro deficit, acute stroke suspected. TECHNIQUE: Routine carotid CT angiography protocol was performed with intravenous contrast. NASCET criteria using the distal ICAs for comparison were used for evaluation of stenoses. CTDI is 11.8 mGy and DLP is 448.99 mGy-cm. Automated exposure control was utilized for the study. A dose lowering technique was utilized adhering to the principles of ALARA. MIP reconstructed images were created and reviewed. CONTRAST: Patient received 120ml of IV contrast COMPARISON: None FINDINGS: VASCULATURE: Right common carotid artery: Unremarkable. No occlusion or significant stenosis. No dissection. Right internal carotid artery: Mild atherosclerotic calcification in the right carotid bulb and proximal right ICA. No significant stenosis. No dissection. Right external carotid artery: Unremarkable. No occlusion. Right vertebral artery: Unremarkable. No occlusion or significant stenosis. No dissection. Left common carotid artery: Unremarkable. No occlusion or significant stenosis. No dissection. Left internal carotid artery: Mild atherosclerotic calcification in the left carotid bulb. No significant stenosis. No dissection. Left external carotid artery: Unremarkable. No occlusion. Left vertebral artery: The left vertebral artery arises directly from the aortic arch, normal variant. No occlusion or significant stenosis. No dissection. NECK: Bones/joints: Mild degenerative changes of the spine. Soft tissues: Unremarkable. Lung apices: Clear. CAROTID STENOSIS REFERENCE USING NASCET CRITERIA: % ICA stenosis = (1 - narrowest ICA diameter/diameter of distal cervical ICA) x 100. Mild - <50% stenosis. Moderate - 50-69% stenosis. Severe - 70-94% stenosis. Near occlusion - 95-99% stenosis. Occluded - 100% stenosis. IMPRESSION: No significant stenosis, occlusion, or dissection. Communications: Call Doctor Stroke Electronically signed by: Vika Martinez M.D. 05/28/23 20:48 PM Discharge Plan Visit Data Chief Complaint: Neuro Symptoms/Deficit Stated Complaint: Poss. Stroke ED Provider: Lj Chan Discharge Problem: Stroke-like symptom, Hypertension Patient Disposition: Being Evaluated by Hospitalist Forms Stand Alone Forms: [facility] [employer] Prescriptions Prescriptions: No Action No Known Home Medications Referrals Referrals: PCP,NO [Primary Care Provider] -
[2023-05-28 20:26] LABS: Basophils # (auto) 0.04 K/uL (0-0.2); Basophils % (auto) 0.5 %; Eosinophils # (auto) 0.08 K/uL (0-0.50); Hematocrit (blood only) 38.4 % (37.0-47.0); Hemoglobin 13.8 g/dl (12.0-16.0); Immature Granulocytes # (auto) 0.01 K/uL (0.01-0.20); Immature Granulocytes % (auto) 0.1 %; Lymphocytes # (auto) 2.66 K/uL (1.2-3.4); Lymphocytes % (auto) 32.2 %; Mean Corpuscular Hemoglobin 28.6 pg (25.0-34.0); Mean Corpuscular Hgb Conc 35.9 g/dL (32.0-36.0); Mean Corpuscular Volume 79.7 fL (80.0-100.0); Mean Platelet Volume 9.7 fL (9.4-12.4); Monocytes # (auto) 0.48 K/uL (0.11-0.59); Monocytes % (auto) 5.8 %; Neutrophils % (auto) 60.4 %; Platelet Count 260 K/uL (130-400); RDW Coefficient of Variation 12.3 % (11.5-14.5); RDW Standard Deviation 35.3 fL (36.4-46.3); Red Blood Count 4.82 M/uL (4.20-5.40); White Blood Count 8.27 K/ul (4.8-10.8)
[2023-05-28] MEDS ORDERED: STAT IV Infusion **Titration per Protocol STA (20:36)
[2023-05-28] MEDS ORDERED: SODIUM CHLORIDE 0.9% 10ML FLUSH IV STA (20:37)
[2023-05-28] MEDS ORDERED: STAT IV STA (20:37)
[2023-05-28 20:39] LABS: iSTAT Creatinine 0.6 mg/dl (0.6-1.3); iSTAT Hemoglobin 13.9 g/dl (12.0-16.0); iSTAT Ionized Calcium 1.04 mmol/l (1.12-1.32); iSTAT Potassium 3.9 mmol/L (3.3-5.0)
[2023-05-28] MEDS ORDERED: MAGNESIUM SULFATE / D5W 1 GM/100 ML BAG IV STA (20:42)
[2023-05-28 20:44] LABS: Partial Thromboplastin Time 29.2 Seconds (21.0-31.0); Prothrombin Time 10.8 Seconds (9.0-12.0)
[2023-05-28] MEDS ORDERED: No Aspirin within 24hrs of THROMBOLYTIC-Stroke PO SCH (20:45)
[2023-05-28 20:46] LABS: Albumin Globulin Ratio 1.4 (0.9-2); Albumin Level 4.3 gm/dl (3.4-5.0); BUN Creatinine Ratio 12.1 (10-20); Bilirubin,Total 0.6 mg/dl (0.2-1.0); Calcium 8.9 mg/dl (8.6-10.3); Creatinine Clr Calc Pharmacy 99.8 ml/min; Est GFR (African American) 114.5 ml/min; Est GFR (Non-African American) 98.8 ml/min; Globulin 3.1 gm/dl (2.5-4.0); Magnesium 2.1 mg/dl (1.7-2.4); Potassium 3.4 mmol/L (3.5-5.1); Total Protein 7.4 gm/dl (6.0-8.3)
[2023-05-28] MEDS ORDERED: TENECTEPLASE 19 MG in SYRINGE 0 ML IV ONE (20:47)
[2023-05-28] MEDS: niCARdipine 25 MG in SODIUM CHLORIDE 0.9% 240 ML IV SCH (20:49)
--- NOTE | 2023-05-28 20:50 | CT Scan Report ---
Exam(s): CTA NECK With Contrast IV Amt: 120ml EXAM: CT Angiography Neck With Intravenous Contrast CLINICAL HISTORY: Reason for exam: neuro deficit, acute stroke suspected. TECHNIQUE: Routine carotid CT angiography protocol was performed with intravenous contrast. NASCET criteria using the distal ICAs for comparison were used for evaluation of stenoses. CTDI is 11.8 mGy and DLP is 448.99 mGy-cm. Automated exposure control was utilized for the study. A dose lowering technique was utilized adhering to the principles of ALARA. MIP reconstructed images were created and reviewed. CONTRAST: Patient received 120ml of IV contrast COMPARISON: None FINDINGS: VASCULATURE: Right common carotid artery: Unremarkable. No occlusion or significant stenosis. No dissection. Right internal carotid artery: Mild atherosclerotic calcification in the right carotid bulb and proximal right ICA. No significant stenosis. No dissection. Right external carotid artery: Unremarkable. No occlusion. Right vertebral artery: Unremarkable. No occlusion or significant stenosis. No dissection. Left common carotid artery: Unremarkable. No occlusion or significant stenosis. No dissection. Left internal carotid artery: Mild atherosclerotic calcification in the left carotid bulb. No significant stenosis. No dissection. Left external carotid artery: Unremarkable. No occlusion. Left vertebral artery: The left vertebral artery arises directly from the aortic arch, normal variant. No occlusion or significant stenosis. No dissection. NECK: Bones/joints: Mild degenerative changes of the spine. Soft tissues: Unremarkable. Lung apices: Clear. CAROTID STENOSIS REFERENCE USING NASCET CRITERIA: % ICA stenosis = (1 - narrowest ICA diameter/diameter of distal cervical ICA) x 100. Mild - <50% stenosis. Moderate - 50-69% stenosis. Severe - 70-94% stenosis. Near occlusion - 95-99% stenosis. Occluded - 100% stenosis. IMPRESSION: No significant stenosis, occlusion, or dissection. Communications: Call Doctor Stroke Electronically signed by: Vika Martinez M.D. 05/28/23 20:48 PM
[2023-05-28 20:52] LABS: Troponin I High Sensitivity 12.6 pg/ml (0-14)
--- NOTE | 2023-05-28 20:53 | CT Scan Report ---
Exam(s): CTA HEAD With Contrast IV Amt: 120ml EXAM: CT Angiography Head With Intravenous Contrast CLINICAL HISTORY: Reason for exam: neuro deficit, acute stroke suspected. TECHNIQUE: Axial computed tomographic angiography images of the head with intravenous contrast. CTDI is 47.42 mGy and DLP is 871.05 mGy-cm. Automated exposure control was utilized for the study. A dose lowering technique was utilized adhering to the principles of ALARA. MIP reconstructed images were created and reviewed. CONTRAST: Patient received 120ml of IV contrast COMPARISON: None FINDINGS: Right internal carotid artery: Minimal atherosclerotic calcification in the distal right ICA. No significant stenosis. No aneurysm. Right anterior cerebral artery: Unremarkable. No occlusion or significant stenosis. No aneurysm. Right middle cerebral artery: Unremarkable. No occlusion or significant stenosis. No aneurysm. Right posterior cerebral artery: Unremarkable. No occlusion or significant stenosis. No aneurysm. Right vertebral artery: Unremarkable as visualized. Left internal carotid artery: Minimal atherosclerotic calcification in the distal left ICA. No significant stenosis. No aneurysm. Left anterior cerebral artery: Unremarkable. No occlusion or significant stenosis. No aneurysm. Left middle cerebral artery: Unremarkable. No occlusion or significant stenosis. No aneurysm. Left posterior cerebral artery: Unremarkable. No occlusion or significant stenosis. No aneurysm. Left vertebral artery: Unremarkable as visualized. Basilar artery: Unremarkable. No occlusion or significant stenosis. No aneurysm. IMPRESSION: No significant stenosis, occlusion, or aneurysm in the central or large intracranial arteries. Communications: Call Doctor Stroke Electronically signed by: Vika Martinez M.D. 05/28/23 20:52 PM
--- NOTE | 2023-05-28 20:56 | CT Scan Report ---
Exam(s): CT HEAD Without Contrast EXAM: CT Head Without Intravenous Contrast CLINICAL HISTORY: Reason for exam: neuro deficit, acute stroke suspected. TECHNIQUE: Axial computed tomography images of the head/brain without intravenous contrast. CTDI is 47.42 mGy and DLP is 871.05 mGy-cm. Automated exposure control was utilized for the study. A dose lowering technique was utilized adhering to the principles of ALARA. COMPARISON: None FINDINGS: Brain: No acute infarct or hemorrhage. No extra-axial fluid collection. No mass effect or midline shift. Remote lacunar infarct versus perivascular space in the right basal ganglia. Mild chronic small vessel ischemic change. Ventricles and sulci: Normal. No ventriculomegaly or intraventricular hemorrhage. Bones: Possible osteoma or other bony excrescence along the outer table of the right frontotemporal bone. No acute fracture. Subcutaneous tissues: Normal. Sinuses: Normal. No air-fluid levels or mucosal thickening. Mastoid air cells: Normal. Orbits: Grossly unremarkable. IMPRESSION: No acute intracranial abnormality. If there is persistent concern for acute infarct, consider further evaluation with MRI. Communications: Call Doctor Stroke Electronically signed by: Vika Martinez M.D. 05/28/23 20:55 PM
[2023-05-28] MEDS ORDERED: TENECTEPLASE IV ONE (21:15)
[2023-05-28 21:27] LABS: Appearance Urine Clear (Clear); Bacteria Urine Automated Negative (Negative); Bilirubin Urine Negative (Negative); Blood Urine Negative (Negative); Cast Urine Automated 0 /lpf (0-5); Color Urine Yellow; Epithelial Cell Urine Auto 0-5 /lpf (0-5); Glucose Urine UA Negative (Negative); Ketones Urine Negative (Negative); Leukocyte Esterase Urine Negative (Negative); Nitrite Urine Negative (Negative); RBC Urine Automated 0-4 /hpf (0-4); Specific Gravity Urine 1.018 (1.000-1.030); Urobilinogen Urine Negative (Negative)
[2023-05-28 21:46] LABS: Protein Urine 1+ (Negative)
--- NOTE | 2023-05-28 22:32 | History & Physical Report ---
Date of Service May 28, 2023 Assessment & Plan (1) Acute CVA (cerebrovascular accident): (2) Stroke-like symptom: (3) Hypertension: (4) Anxiety: (5) HTN (hypertension): (6) Chronic GERD: (7) Sleep apnea: (8) Hypokalemia: (9) Admitted to intensive care unit: (10) Cerebrovascular accident aborted by administration of thrombolytic agent: Plan CVA/strokelike symptoms/improving with administration of thrombolytic agent, TNK in the ED- Admit to the intensive care unit per post TNK protocol NPO until passes speech therapy eval In ED patient received labetalol 10 mg IV x4, then was started on nicardipine drip to obtain systolic blood pressure less than 180 administer TNK Nicardipine drip was tapered and briefly off, and then restarted at 2.5 mg/h to target systolic blood pressure 140-160 Neurochecks by protocol Follow serial CBC with differential, chemistry profile, magnesium Check hemoglobin A1c and fasting lipid panel Order complete echocardiogram CT scan head, CTA head and neck all negative MRI brain ordered 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 She had no previous occurrence of the symptoms. Primary Care Provider: NO PCP The patient is a 58-year-old female with a past medical history including GERD, generalized arthritis, hypertension, right knee pain, obesity and sleep apnea. 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 When she arrived to the emergency department and symptoms became apparent, she was made a stroke alert. She underwent an emergent CT scan head which was negative, CTA head and neck which were both negative. Telestroke neuroradiology consult advised administration of TNK, to which patient received, and plans were then made to admit the patient to the ICU. Allergies Allergy/AdvReac Type Severity Reaction Status Date / Time bee venom protein (honey bee) Allergy Severe Anaphylaxis Verified 05/28/23 21:32 Home Medications Medication Instructions Recorded Confirmed Type No Known Home Medications 05/28/23 05/28/23 History Past Med/Surg History Medical History (Updated 05/29/23 @ 05:04 by Guillermo Saavedra MD) Chronic GERD Generalized arthritis Sleep apnea Surgical History Elective H/O tubal ligation History of IUFD S/P tubal ligation Family History Mother Breast cancer Father Colorectal cancer Heart disease Grandmother (Maternal) Hypertension Brother Leukemia Grandfather (Maternal) Lymphoma Social History Smoking Status: Former smoker Tobacco Type: Cigarettes Smoking End Date: 2006; Do You Dip or Chew Tobacco: No; Hx Alcohol Use: No Hx Substance Use: No Preferred Language: Setswana Communication Ability: Effective Fitter Hand Required: No Beliefs That Will Affect Care: None Current Living Situation: Alone Other Information That Helps Us Care for You: No Feels Safe at Home: Yes Safety Concerns: Feels Safe At This Time Physical Activity Frequency: Other Physical Activity Frequency Comment: occasional Assistive Devices: Glasses Assistive Devices Comment: reading glasses Review of Systems Review of Systems: The patient denies chest pain, palpitations, shortness of breath, dyspnea on exertion, cough, lower extremity swelling, sore throat, fevers, chills, sweats, weight change, fatigue, nausea, vomiting, diarrhea , constipation, abdominal pain, pelvic pain, blood in urine or stool, dysuria, urinary frequency or urgency, lightheadedness, dizziness, headache, memory loss, loss of consciousness, rash, abnormal bruising or bleeding, generalized arthralgias or myalgias, back or neck pain, or night sweats. The review of systems is otherwise negative other than for that already noted above, and at least 10 systems have been reviewed. Physical Exam Physical Exam: The patient is awake, alert and oriented 3, well developed and well nourished, normocephalic and atraumatic, lying in bed and in no acute distress. HEENT--PERRL, EOMI, mucous membranes and oropharynx dry. Neck--supple. No JVD. No bruits. Thyroid normal, trachea midline, no adenopathy. Heart--normal S1 and S2. No murmurs, rubs or gallops. Lungs--clear bilaterally, no respiratory distress, no accessory muscle use. Abdomen--normal bowel sounds and soft. Nontender. Nondistended, no hernias or masses, no organomegaly. Extremities--no cyanosis or clubbing. No edema. There are good distal pulses b/l. Dermatologic--normal skin turgor, normal color, no abnormal lymph nodes, no rash. Neurologic--cranial nerves II through XII grossly intact. Right side strength 4+ out of 5 upper and lower extremities which patient reports is subjectively improved after TNK Rheumatologic--normal range of motion exam except for right side as noted Psychiatric--normal affect. Results & Data Results & Data Vital Signs (Past 12 Hours) Vital Signs Temp Pulse Pulse Resp BP BP Pulse Ox 05/28/23 22:21 73 15 157/86 H 96 05/28/23 20:06 78 05/28/23 22:05 79 18 99/68 L 95 05/28/23 21:50 95 H 16 136/82 95 05/28/23 21:35 36.9 C 71 18 136/61 95 05/28/23 21:30 133/73 05/28/23 21:20 81 19 159/89 H 96 05/28/23 21:10 77 18 184/81 H 93 05/28/23 20:58 37.1 C 73 18 167/78 H 95 05/28/23 20:56 72 20 182/90 H 94 05/28/23 20:54 76 212/113 H 05/28/23 20:53 74 212/113 H 05/28/23 20:43 71 203/107 H 05/28/23 20:40 67 221/117 H 05/28/23 20:39 68 219/116 H 05/28/23 20:38 69 219/116 H 05/28/23 20:34 69 18 244/128 H 95 05/28/23 20:33 94 05/28/23 20:22 79 18 226/126 H 95 05/28/23 19:53 99 H 05/28/23 19:53 99 H 279/152 H O2 Del Method 05/28/23 22:21 Room Air 05/28/23 20:06 05/28/23 22:05 Room Air 05/28/23 21:50 Room Air 05/28/23 21:35 Room Air 05/28/23 21:30 05/28/23 21:20 Room Air 05/28/23 21:10 Room Air 05/28/23 20:58 Room Air 05/28/23 20:56 Room Air 05/28/23 20:54 05/28/23 20:53 05/28/23 20:43 05/28/23 20:40 05/28/23 20:39 05/28/23 20:38 05/28/23 20:34 Room Air 05/28/23 20:33 Room Air 05/28/23 20:22 Room Air 05/28/23 19:53 05/28/23 19:53 Laboratory Results Laboratory Results WBC Cancelled 05/29/23 03:59 RBC Cancelled 05/29/23 03:59 Hgb Cancelled 05/29/23 03:59 POC Hgb 13.9 g/dl (12.0-16.0) 05/28/23 20:26 Hct Cancelled 05/29/23 03:59 POC Hct 41 % (37-47) 05/28/23 20:26 MCV Cancelled 05/29/23 03:59 MCH Cancelled 05/29/23 03:59 MCHC Cancelled 05/29/23 03:59 RDW Std Deviation Cancelled 05/29/23 03:59 RDW Coeff of Tenzin Cancelled 05/29/23 03:59 Plt Count Cancelled 05/29/23 03:59 MPV Cancelled 05/29/23 03:59 Immature Gran % (Auto) Cancelled 05/29/23 03:59 Neut % (Auto) Cancelled 05/29/23 03:59 Lymph % (Auto) Cancelled 05/29/23 03:59 [place] % (Auto) Cancelled 05/29/23 03:59 Eos % (Auto) Cancelled 05/29/23 03:59 Baso % (Auto) Cancelled 05/29/23 03:59 Neut # (Auto) Cancelled 05/29/23 03:59 Lymph # (Auto) Cancelled 05/29/23 03:59 [place] # (Auto) Cancelled 05/29/23 03:59 Eos # (Auto) Cancelled 05/29/23 03:59 Baso # (Auto) Cancelled 05/29/23 03:59 Immature Gran # (Auto) Cancelled 05/29/23 03:59 Absolute Nucleated RBC Cancelled 05/29/23 03:59 Nucleated RBC % (auto) Cancelled 05/29/23 03:59 Neutrophils % (Manual) Cancelled 05/29/23 03:59 Band Neutrophils % Cancelled 05/29/23 03:59 Lymphocytes % (Manual) Cancelled 05/29/23 03:59 Prolymphocyte % Cancelled 05/29/23 03:59 Reactive Lymphs % (Man) Cancelled 05/29/23 03:59 Monocytes % (Manual) Cancelled 05/29/23 03:59 Eosinophils % (Manual) Cancelled 05/29/23 03:59 Basophils % (Manual) Cancelled 05/29/23 03:59 Metamyelocytes % (Man) Cancelled 05/29/23 03:59 Myelocytes % (Man) Cancelled 05/29/23 03:59 Promyelocytes % (Man) Cancelled 05/29/23 03:59 Blast Cells % (Manual) Cancelled 05/29/23 03:59 Plasma Cell % (Manual) Cancelled 05/29/23 03:59 Other Cells % Cancelled 05/29/23 03:59 Nucleated RBC % Cancelled 05/29/23 03:59 Neutrophils # (Manual) Cancelled 05/29/23 03:59 Band Neutrophils # Cancelled 05/29/23 03:59 Total Absolute Neuts Cancelled 05/29/23 03:59 Lymphocytes # (Manual) Cancelled 05/29/23 03:59 Prolymphocyte # Cancelled 05/29/23 03:59 Reactive Lymphs # Cancelled 05/29/23 03:59 Total Abs Lymphocytes Cancelled 05/29/23 03:59 Monocytes # (Manual) Cancelled 05/29/23 03:59 Eosinophils # (Manual) Cancelled 05/29/23 03:59 Basophils # (Manual) Cancelled 05/29/23 03:59 Metamyelocytes # (Man) Cancelled 05/29/23 03:59 Myelocytes # (Manual) Cancelled 05/29/23 03:59 Promyelocytes # (Man) Cancelled 05/29/23 03:59 Blast Cells # (Man) Cancelled 05/29/23 03:59 Plasma Cell # (Manual) Cancelled 05/29/23 03:59 Other Cells # Cancelled 05/29/23 03:59 Nucleated RBCs # (Man) Cancelled 05/29/23 03:59 Hypersegmented Neuts Cancelled 05/29/23 03:59 Hyposegmented Neuts Cancelled 05/29/23 03:59 Hypogranular Neuts Cancelled 05/29/23 03:59 Large Granular Lymphs Cancelled 05/29/23 03:59 # Lrg Granular Lymphs Cancelled 05/29/23 03:59 Hairy Cells Cancelled 05/29/23 03:59 Smudge Cells Cancelled 05/29/23 03:59 Toxic Granulation Cancelled 05/29/23 03:59 Toxic Vacuolation Cancelled 05/29/23 03:59 Dohle Bodies Cancelled 05/29/23 03:59 Sola Rods Cancelled 05/29/23 03:59 Platelet Estimate Cancelled 05/29/23 03:59 Hypogranular Platelets Cancelled 05/29/23 03:59 Giant Platelets Cancelled 05/29/23 03:59 Platelet Satelliting Cancelled 05/29/23 03:59 RBC Morphology Cancelled 05/29/23 03:59 Polychromasia Cancelled 05/29/23 03:59 Hypochromasia Cancelled 05/29/23 03:59 Poikilocytosis Cancelled 05/29/23 03:59 Basophilic Stippling Cancelled 05/29/23 03:59 Anisocytosis Cancelled 05/29/23 03:59 Microcytosis Cancelled 05/29/23 03:59 Macrocytosis Cancelled 05/29/23 03:59 Spherocytes Cancelled 05/29/23 03:59 Pappenheimer Bodies Cancelled 05/29/23 03:59 Sickle Cells Cancelled 05/29/23 03:59 Target Cells Cancelled 05/29/23 03:59 Tear Drop Cells Cancelled 05/29/23 03:59 Ovalocytes Cancelled 05/29/23 03:59 Stomatocytes Cancelled 05/29/23 03:59 [place] Bodies Cancelled 05/29/23 03:59 Echinocytes Cancelled 05/29/23 03:59 Acanthocytes (Spur) Cancelled 05/29/23 03:59 Rouleaux Cancelled 05/29/23 03:59 RBC Agglutinates Cancelled 05/29/23 03:59 Schistocytes Cancelled 05/29/23 03:59 Sezary Cell Cancelled 05/29/23 03:59 PT 10.8 Seconds (9.0-12.0) 05/28/23 20:12 INR 1.0 (0.9-1.1) 05/28/23 20:12 APTT 29.2 Seconds (21.0-31.0) 05/28/23 20:12 PTT Ratio 1.0 05/28/23 20:12 POC Sodium 138 mmol/L (135-144) 05/28/23 20:26 Sodium 136 mmol/L (136-145) 05/28/23 20:13 POC Potassium 3.9 mmol/L (3.3-5.0) 05/28/23 20:26 Potassium 3.4 mmol/L (3.5-5.1) L 05/28/23 20:13 POC Chloride 103 mmol/L (101-112) 05/28/23 20:26 Chloride 101 mmol/L (98-107) 05/28/23 20:13 Carbon Dioxide 26 mmol/L (21-32) 05/28/23 20:13 POC Total CO2 26 mmol/L (24-31) 05/28/23 20:26 Anion Gap 9 (3-11) 05/28/23 20:13 POC Anion Gap 14.0 mmol/L (16-25) L 05/28/23 20:26 POC BUN 8 mg/dl (7-18) 05/28/23 20:26 BUN 8 mg/dl (6-23) 05/28/23 20:13 Creatinine 0.66 mg/dl (0.6-1.2) 05/28/23 20:13 POC Creatinine 0.6 mg/dl (0.6-1.3) 05/28/23 20:26 Est Cr Clr Drug Dosing 99.8 ml/min 05/28/23 20:13 Est GFR ( Amer) 114.5 ml/min 05/28/23 20:13 Est GFR (Non-Af Amer) 98.8 ml/min 05/28/23 20:13 BUN/Creatinine Ratio 12.1 (10-20) 05/28/23 20:13 Glucose 112 mg/dl (70-99(Fasting)) H 05/28/23 20:13 POC Glucose 119 mg/dl (70-99) H 05/28/23 20:09 POC Glucose (other) 114 mg/dl (70-99) H 05/28/23 20:26 Calcium 8.9 mg/dl (8.6-10.3) 05/28/23 20:13 POC Ioniz Calcium [place] 1.04 mmol/l (1.12-1.32) L 05/28/23 20:26 Phosphorus 4.2 mg/dl (2.5-4.9) 05/29/23 03:59 Magnesium 2.2 mg/dl (1.7-2.4) 05/29/23 03:59 Total Bilirubin 0.7 mg/dl (0.2-1.0) 05/29/23 03:59 Direct Bilirubin 0.1 mg/dl (0-0.2) 05/29/23 03:59 AST 14 U/L (13-39) 05/29/23 03:59 ALT 8 U/L (7-52) 05/29/23 03:59 Alkaline Phosphatase 64 U/L (34-104) 05/29/23 03:59 Troponin I High Sens 20.8 pg/ml (0-14) H 05/29/23 03:59 Total Protein 7.6 gm/dl (6.0-8.3) 05/29/23 03:59 Albumin 4.5 gm/dl (3.4-5.0) 05/29/23 03:59 Globulin 3.1 gm/dl (2.5-4.0) 05/28/23 20:13 Albumin/Globulin Ratio 1.4 (0.9-2) 05/28/23 20:13 Triglycerides 250 mg/dl (0-150) H 05/29/23 03:59 Cholesterol 238 mg/dl (0-200) H 05/29/23 03:59 LDL Cholesterol, Calc 141 mg/dl 05/29/23 03:59 VLDL Cholesterol, Calc 50 mg/dl (0-30) H 05/29/23 03:59 HDL Cholesterol 47 mg/dl 05/29/23 03:59 Cholesterol/HDL Ratio 5.1 (0-5) H 05/29/23 03:59 Urine Color Yellow 05/28/23 20:50 Urine Appearance Clear (Clear) 05/28/23 20:50 Urine pH 8.0 (4.5-7.5) H 05/28/23 20:50 Ur Specific [place] 1.018 (1.000-1.030) 05/28/23 20:50 Urine Protein 1+ (Negative) H 05/28/23 20:50 Urine Glucose (UA) Negative (Negative) 05/28/23 20:50 Urine Ketones Negative (Negative) 05/28/23 20:50 Urine Blood Negative (Negative) 05/28/23 20:50 Urine Nitrite Negative (Negative) 05/28/23 20:50 Urine Bilirubin Negative (Negative) 05/28/23 20:50 Urine Urobilinogen Negative (Negative) 05/28/23 20:50 Ur Leukocyte Esterase Negative (Negative) 05/28/23 20:50 Urine WBC (Auto) 1-5 /hpf (0-5) 05/28/23 20:50 Urine RBC (Auto) 0-4 /hpf (0-4) 05/28/23 20:50 U Hyaline Cast (Auto) 0 /lpf (0-5) 05/28/23 20:50 U Epithel Cells (Auto) 0-5 /lpf (0-5) 05/28/23 20:50 Urine Bacteria (Auto) Negative (Negative) 05/28/23 20:50 Nasal Screen MRSA (PCR) Negative (Negative) 05/29/23 Unknown Blood Parasites ID Cancelled 05/29/23 03:[address] 05/28/23 19:52 CR Exam(s): CT HEAD Without Contrast EXAM: CT Head Without Intravenous Contrast CLINICAL HISTORY: Reason for exam: neuro deficit, acute stroke suspected. TECHNIQUE: Axial computed tomography images of the head/brain without intravenous contrast. CTDI is 47.42 mGy and DLP is 871.05 mGy-cm. Automated exposure control was utilized for the study. A dose lowering technique was utilized adhering to the principles of ALARA. COMPARISON: None FINDINGS: Brain: No acute infarct or hemorrhage. No extra-axial fluid collection. No mass effect or midline shift. Remote lacunar infarct versus perivascular space in the right basal ganglia. Mild chronic small vessel ischemic change. Ventricles and sulci: Normal. No ventriculomegaly or intraventricular hemorrhage. Bones: Possible osteoma or other bony excrescence along the outer table of the right frontotemporal bone. No acute fracture. Subcutaneous tissues: Normal. Sinuses: Normal. No air-fluid levels or mucosal thickening. Mastoid air cells: Normal. Orbits: Grossly unremarkable. IMPRESSION: No acute intracranial abnormality. If there is persistent concern for acute infarct, consider further evaluation with MRI. Communications: Call Doctor Stroke Electronically signed by: Vika Martinez M.D. 05/28/23 20:55 PM Head CTA 05/28/23 19:52 CR Exam(s): CTA HEAD With Contrast IV Amt: 120ml EXAM: CT Angiography Head With Intravenous Contrast CLINICAL HISTORY: Reason for exam: neuro deficit, acute stroke suspected. TECHNIQUE: Axial computed tomographic angiography images of the head with intravenous contrast. CTDI is 47.42 mGy and DLP is 871.05 mGy-cm. Automated exposure control was utilized for the study. A dose lowering technique was utilized adhering to the principles of ALARA. MIP reconstructed images were created and reviewed. CONTRAST: Patient received 120ml of IV contrast COMPARISON: None FINDINGS: Right internal carotid artery: Minimal atherosclerotic calcification in the distal right ICA. No significant stenosis. No aneurysm. Right anterior cerebral artery: Unremarkable. No occlusion or significant stenosis. No aneurysm. Right middle cerebral artery: Unremarkable. No occlusion or significant stenosis. No aneurysm. Right posterior cerebral artery: Unremarkable. No occlusion or significant stenosis. No aneurysm. Right vertebral artery: Unremarkable as visualized. Left internal carotid artery: Minimal atherosclerotic calcification in the distal left ICA. No significant stenosis. No aneurysm. Left anterior cerebral artery: Unremarkable. No occlusion or significant stenosis. No aneurysm. Left middle cerebral artery: Unremarkable. No occlusion or significant stenosis. No aneurysm. Left posterior cerebral artery: Unremarkable. No occlusion or significant stenosis. No aneurysm. Left vertebral artery: Unremarkable as visualized. Basilar artery: Unremarkable. No occlusion or significant stenosis. No aneurysm. IMPRESSION: No significant stenosis, occlusion, or aneurysm in the central or large intracranial arteries. Communications: Call Doctor Stroke Electronically signed by: Vika Martinez M.D. 05/28/23 20:52 PM Neck CTA 05/28/23 19:52 CR Exam(s): CTA NECK With Contrast IV Amt: 120ml EXAM: CT Angiography Neck With Intravenous Contrast CLINICAL HISTORY: Reason for exam: neuro deficit, acute stroke suspected. TECHNIQUE: Routine carotid CT angiography protocol was performed with intravenous contrast. NASCET criteria using the distal ICAs for comparison were used for evaluation of stenoses. CTDI is 11.8 mGy and DLP is 448.99 mGy-cm. Automated exposure control was utilized for the study. A dose lowering technique was utilized adhering to the principles of ALARA. MIP reconstructed images were created and reviewed. CONTRAST: Patient received 120ml of IV contrast COMPARISON: None FINDINGS: VASCULATURE: Right common carotid artery: Unremarkable. No occlusion or significant stenosis. No dissection. Right internal carotid artery: Mild atherosclerotic calcification in the right carotid bulb and proximal right ICA. No significant stenosis. No dissection. Right external carotid artery: Unremarkable. No occlusion. Right vertebral artery: Unremarkable. No occlusion or significant stenosis. No dissection. Left common carotid artery: Unremarkable. No occlusion or significant stenosis. No dissection. Left internal carotid artery: Mild atherosclerotic calcification in the left carotid bulb. No significant stenosis. No dissection. Left external carotid artery: Unremarkable. No occlusion. Left vertebral artery: The left vertebral artery arises directly from the aortic arch, normal variant. No occlusion or significant stenosis. No dissection. NECK: Bones/joints: Mild degenerative changes of the spine. Soft tissues: Unremarkable. Lung apices: Clear. CAROTID STENOSIS REFERENCE USING NASCET CRITERIA: % ICA stenosis = (1 - narrowest ICA diameter/diameter of distal cervical ICA) x 100. Mild - <50% stenosis. Moderate - 50-69% stenosis. Severe - 70-94% stenosis. Near occlusion - 95-99% stenosis. Occluded - 100% stenosis. IMPRESSION: No significant stenosis, occlusion, or dissection. Communications: Call Doctor Stroke Electronically signed by: Vika Martinez M.D. 05/28/23 20:48 PM Code Status & VTE Plan Code Status Full code VTE Prophylaxis Plan VTE Prophylaxis will be ordered: Yes PG Care Time/CCT Total # of Minutes Spent Total Time Spent with Patient: Total time spent is greater than 50% in coordination of care (as documented) at patient's floor/unit and/or counseling patient: 50 minutes Coding Level of Care Code 02222 INT INP/OBS CARE 3/75MIN Diagnoses Acute CVA (cerebrovascular accident) I63.9 Stroke-like symptom R29.90 Hypertension I10 Hypertension type: unspecified Anxiety F41.9 Chronic GERD K21.9 Sleep apnea G47.30 Hypokalemia E87.6 Admitted to intensive care unit Z78.9 Cerebrovascular accident aborted by administration of thrombolytic agent I63.9 (3) Hypertension Hypertension type: unspecified Qualified Code(s): I10 - Essential (primary) hypertension
[2023-05-28] MEDS ORDERED: GLUCAGON FOR INJ 1 MG VIAL SQ PRN (23:56)
[2023-05-28] MEDS ORDERED: GLUCOSE 40% GEL 15 GM TUBE PO PRN (23:56)
[2023-05-28] MEDS ORDERED: ALBUT/IPRATROP 3MG/0.5MG NEB 3 ML VIAL INH PRN (23:56)
[2023-05-28] MEDS ORDERED: PHARMACIST DISCHARGE MED REC CONSULT PRN (23:56)
[2023-05-28] MEDS ORDERED: CARBOHYDRATES FOR HYPOGLYCEMIA PO PRN (23:56)
[2023-05-28] MEDS ORDERED: DEXTROSE 50% 50 ML SYRINGE IV PRN (23:56)
[2023-05-28] MEDS ORDERED: GLUCOSE 10 TAB/TUBE PO PRN (23:56)
--- NOTE | 2023-05-29 00:35 | Critical Care Consultation ---
Date of Consultation May 29, 2023 Assessment & Plan (1) Acute CVA (cerebrovascular accident): Impression: 58-year-old female presents to the ICU with strokelike symptoms and suspected CVA with right-sided weakness in the upper and lower extremities along with numbness. Neuro - Acute CVAneuro exam as above. Status post TNKase administration at 2110 per telemetry neurology recommendations -CT head, CTA head and neck unremarkable for acute findings -Follow-up MRI and TTE -Follow-up lipid panel, A1c -Monitor in ICU per 24-hour post TNKase protocol -CT head at 24 hours post TNKase -Neurology consult pending, will follow recommendation Cardiac - HTNallow permissive hypertensive for now. Patient was on nicardipine drip for initial blood pressure 279/150. -We will attempt to keep systolic blood pressure in the 1 40-1 70 range. -Apparently patient was previously on lisinopril but discontinued this medication. Will likely need restarted on oral agent soon. Continuous monitoring on telemetry Respiratory - No history of pulmonary disease. No respiratory distress. Continuous mon itoring on pulse ox for now GI - N.p.o. pending swallow study. Advance diet as tolerated RENAL/LYTES - Creatinine within normal limits, monitor routine BMPs and replete electrolytes as indicated. Consider IV fluids if unable to take p.o. - Strict I's and O's ENDO - No history of diabetes or thyroid disease. ICU hyperglycemic HEME - H&H stable, monitor routine CBC ID - No indication for infectious process at this time LINES/IV ACCESS - Peripheral IVs DVT PROPHYLAXIS - SCDs, hold anticoagulation for 24 hours post TNKase Thank you for allowing us to participate in the care of this patient. Please refer to my attending physician's documentation for any further recommendations. (2) Hypertension: (3) Anxiety: Supervising Physician Co-Signing Physician Notes I have personally evaluated and examined this patient. I agree with assessment and plan of Julianna LEVYA. Patient with reported improvement in right side however it is still largely nonfunctional. She reports that she lives alone will likely need discharge to skilled rehab. Denies any complaint of headache or dizziness at this time. To remain in ICU until outside 24-hour TNKase window History of Present Illness Attending Physician: Guillermo Saavedra MD History of Present Illness Patient is a 58-year-old female with past medical history of anxiety, migraines, hypertension who presented to the emergency department with right-sided numbness and weakness. Symptoms have begun around 6 PM and the patient called 911. She did wake up with a mild headache this morning that has persisted throughout the day. CT head was negative for acute intracranial findings and CTA head and neck were unremarkable as well. Patient was evaluated by telemetry neurology and was determined to be a good candidate for thrombolytics. TNKase was administered at 2110. On arrival to the ICU the patient is alert and oriented without acute distress. She complains of a mild left frontal headache, right-sided weakness and numbness in upper and lower extremity. She claims that she was having issues with balance and walking earlier due to the right-sided weakness. She denies any difficulty swallowing, changes in vision, facial numbness or other neurological symptoms. She denies dizziness, syncope, recent illness, fevers, sore throat, shortness of breath, chest pain or palpitations, abdominal pain, nausea vomiting or diarrhea, swelling in hands or feet. Patient to remain in ICU for 24-hour post TNKase administration protocol. Small cardene dosage for BP into 180s. Allergies Allergy/AdvReac Type Severity Reaction Status Date / Time bee venom protein (honey bee) Allergy Severe Anaphylaxis Verified 05/28/23 21:32 Home Medications Medication Instructions Recorded Confirmed Type No Known Home Medications 05/28/23 05/28/23 History Patient History Medical History (Updated 05/29/23 @ 05:04 by Guillermo Saavedra MD) Chronic GERD Generalized arthritis Sleep apnea Surgical History Elective H/O tubal ligation History of IUFD S/P tubal ligation Family History Mother Breast cancer Father Colorectal cancer Heart disease Grandmother (Maternal) Hypertension Brother Leukemia Grandfather (Maternal) Lymphoma Social History Smoking Status: Former smoker Tobacco Type: Cigarettes Smoking End Date: 2006; Do You Dip or Chew Tobacco: No; Hx Alcohol Use: No Hx Substance Use: No Preferred Language: Peruvian Communication Ability: Effective Marketing Production Coordinator Required: No Beliefs That Will Affect Care: None Current Living Situation: Alone Other Information That Helps Us Care for You: No Feels Safe at Home: Yes Safety Concerns: Feels Safe At This Time Physical Activity Frequency: Other Physical Activity Frequency Comment: occasional Assistive Devices: Glasses Assistive Devices Comment: reading glasses Review of Systems Review of Systems: All systems reviewed & are unremarkable except as noted in HPI & below Physical Exam Constitutional: WD/WN, vitals as above cooperative and comfortable Eyes: PERRL, conjunctivae normal, anicteric sclerae ENMT: external ear and nose normal, oropharynx normal Neck: trachea midline, no thyromegaly Respiratory: normal respiratory effort, lungs clear to auscultation Cardiovascular: RRR, no murmur, no edema Heart Sounds: normal S1 and normal S2; no murmur Vessels: no JVD Extremities: no edema Gastrointestinal (Abdomen): normal bowel sounds, soft, nontender, no hepatosplenomegaly Musculoskeletal: No musculoskeletal deformities, no signs of trauma. Right upper and lower extremity weakness with limited range of motion Skin: no rashes, warm and dry Neurologic: Right upper and lower extremity weakness and numbness. No dysarthria, aphasia, or facial asymmetry. PERRLA Psychiatric: A+Ox3, euthymic affect Results & Data Results & Data Vital Signs (Past 12 Hours) Vital Signs Temp Pulse Pulse Resp BP BP Pulse Ox 05/28/23 23:29 65 16 151/73 H 96 05/28/23 23:17 72 17 176/81 H 96 05/28/23 23:06 71 19 151/73 H 94 05/28/23 22:51 66 16 94 05/28/23 23:04 67 16 159/82 H 96 05/28/23 22:50 18 185/89 H 95 05/28/23 22:35 37.0 C 67 18 156/82 H 97 05/28/23 22:21 73 15 157/86 H 96 05/28/23 20:06 78 05/28/23 22:05 79 18 99/68 L 95 05/28/23 21:50 95 H 16 136/82 95 05/28/23 21:35 36.9 C 71 18 136/61 95 05/28/23 21:30 133/73 05/28/23 21:20 81 19 159/89 H 96 05/28/23 21:10 77 18 184/81 H 93 05/28/23 20:58 37.1 C 73 18 167/78 H 95 05/28/23 20:56 72 20 182/90 H 94 05/28/23 20:54 76 212/113 H 05/28/23 20:53 74 212/113 H 05/28/23 20:43 71 203/107 H 05/28/23 20:40 67 221/117 H 05/28/23 20:39 68 219/116 H 05/28/23 20:38 69 219/116 H 05/28/23 20:34 69 18 244/128 H 95 05/28/23 20:33 94 05/28/23 20:22 79 18 226/126 H 95 05/28/23 19:53 99 H 05/28/23 19:53 99 H 279/152 H O2 Del Method 05/28/23 23:29 Room Air 05/28/23 23:17 Room Air 05/28/23 23:06 Room Air 05/28/23 22:51 Room Air 05/28/23 23:04 Room Air 05/28/23 22:50 Room Air 05/28/23 22:35 Room Air 05/28/23 22:21 Room Air 05/28/23 20:06 05/28/23 22:05 Room Air 05/28/23 21:50 Room Air 05/28/23 21:35 Room Air 05/28/23 21:30 05/28/23 21:20 Room Air 05/28/23 21:10 Room Air 05/28/23 20:58 Room Air 05/28/23 20:56 Room Air 05/28/23 20:54 05/28/23 20:53 05/28/23 20:43 05/28/23 20:40 05/28/23 20:39 05/28/23 20:38 05/28/23 20:34 Room Air 05/28/23 20:33 Room Air 05/28/23 20:22 Room Air 05/28/23 19:53 05/28/23 19:53 Coding Level of Care Code 47515 IN/OBS CONSULT LVL 3,45M Diagnoses Acute CVA (cerebrovascular accident) I63.9 Hypertension I10 Hypertension type: unspecified Anxiety F41.9 (2) Hypertension Hypertension type: unspecified Qualified Code(s): I10 - Essential (primary) hypertension
[2023-05-29] MEDS: NSS + 20MEQ KCL 20 MEQ/1,000 ML BAG IV SCH ×2 (01:44→13:51)
[2023-05-29] MEDS: FAMOTIDINE 20 MG in SYRINGE 3 ML IV SCH ×2 (01:44→08:10)
[2023-05-29] MEDS: ACETAMINOPHEN 325 MG TAB PO PRN (03:41)
[2023-05-29 04:54] LABS: Albumin Level 4.5 gm/dl (3.4-5.0); Bilirubin Direct 0.1 mg/dl (0-0.2); Bilirubin,Total 0.7 mg/dl (0.2-1.0); Chol HDL Ratio 5.1 (0-5); Magnesium 2.2 mg/dl (1.7-2.4); Phosphorus 4.2 mg/dl (2.5-4.9); Total Protein 7.6 gm/dl (6.0-8.3)
[2023-05-29 05:00] LABS: Troponin I High Sensitivity 20.8 pg/ml (0-14)
[2023-05-29 05:09] LABS: Partial Thromboplastin Ratio 1.1; Partial Thromboplastin Time 29.9 Seconds (21.0-31.0); Prothrombin Time 11.2 Seconds (9.0-12.0)
--- NOTE | 2023-05-29 05:09 | Billing Data ---
Date of Service May 29, 2023 Coding Level of Care Code 37642 CRITICAL CARE M
--- NOTE | 2023-05-29 06:04 | Magnetic Resonance Report ---
Exam(s): MRI HEAD Without Contrast EXAM: MR Head Without Intravenous Contrast CLINICAL HISTORY: Reason for exam: CVA. TECHNIQUE: Magnetic resonance images of the head/brain without intravenous contrast in multiple planes. COMPARISON: Comparison made to prior noncontrast head CT from May 28, 2023. FINDINGS: Brain: There is no acute ischemic injury with him the left posterior capsule with mild cytotoxic edema, without evidence of hemorrhagic transformation. Mild nonspecific white matter changes. The flow voids at the base of the brain are intact. Large right choroidal fissure cyst. No mass. No hemorrhage. Ventricles: Unremarkable. No ventriculomegaly. Bones/joints: Hyperostosis frontalis interna. Benign bony exostosis of the right frontal bone. Sinuses: Chronic ethmoid sinusitis. No acute sinusitis. Mastoid air cells: There is a small moderate fluid within the mastoid air No mastoid effusion. Orbits: Unremarkable as visualized. IMPRESSION: There is an acute ischemic injury of the left posterior capsule without evidence of hemorrhagic transformation. Communications: Verify Receipt with Nurse Electronically signed by: Chyna Gamboa MD 05/29/23 06:03 AM
[2023-05-29 06:31] LABS: Estimated Average Glucose 111 mg/dl; Hemoglobin A1C 5.5 % (4.5-5.6)
--- NOTE | 2023-05-29 07:23 | Hospitalist Progress Note ---
Date of Service May 29, 2023 Assessment & Plan (1) Acute CVA (cerebrovascular accident): (2) Stroke-like symptom: (3) Hypertension: (4) Anxiety: (5) Chronic GERD: (6) Sleep apnea: (7) Hypokalemia: (8) Admitted to intensive care unit: (9) Cerebrovascular accident aborted by administration of thrombolytic agent: (10) Weight loss: Plan Patient is a 58-year-old female with past medical history of GERD, untreated hypertension, untreated sleep apnea, and recent significant weight loss who presented to hospital for sudden onset of headache with right sided arm weakness and numbness that started at 1800 on 05/28/2023. Brain MRI showed acute ischemic stroke of the left posterior capsule. TNK given in the ED. Acute ischemic stroke Head CT negative, head CTA negative, neck CTA negative Brain MRI showed acute ischemic injury of the left posterior capsule without evidence of hemorrhagic transformation on 05/29/2023. TNK given in the ED administered at 2110. Currently in the ICU. TTE was unremarkable Lipid panel showed hyperlipidemia, should start statin once medically stabilized. A1c normal. Neurology consulted, will repeat CT head at 24 hours post TNK. Neurochecks per protocol in the ICU. Patient remains symptomatic with right arm and right leg weakness. Will most likely need placement at discharge. PT OT consulted. Speech eval placed, will keep n.p.o. at this time Prothrombin gene, beta-2 GPI, FRANCISCO, factor V Leiden, factor VIII, Antithrombin III, protein S are all currently pending at this time. Though seems unlikely to be underlying cause of patient's stroke. Underlying etiology most likely multifactorial of untreated hypertension, untreated sleep apnea, untreated hyperlipidemia. Patient should have close follow-up with PCP regarding risk reduction. Hypertension Patient was previously on hydrochlorothiazidelisinopril 25 mg - 20 mg. She stopped taking about 1 year ago. We will allow permissive hypertension for now. Low patient has pressures as high as 279/150. In ED patient received labetalol 10 mg IV x4, then was started on nicardipine drip to obtain systolic blood pressure less than 180 administer TNK Nicardipine drip was tapered and briefly off, and then restarted at 2.5 mg/h to target systolic blood pressure 140-160 Chronic GERD -was on omeprazole 10 mg. Sleep apnea Was previously prescribed a CPAP machine, stopped using approximately 1 year ago. Should have outpatient follow-up with PCP. Given the fact that patient has had a stroke in the setting of sleep apnea and no significant underlying cause. We will likely send home on Holter monitor to rule out any paroxysmal A-fib. Hypokalemia Potassium 3.[address] NSS + KCl 20 mEq at 80 mils per hour Follow serial CBC with differential, renal function panel and magnesium levels Weight loss Patient with a 6070 weight loss over the past year. States that this was intentional. Family history of breast cancer with mother diagnosed when she was 50. Most likely not underlying cause of stroke, should follow-up with PCP if further work-up is needed. Should have a mammogram at least given significant family history. Follow-up as an outpatient. Anxiety She will follow-up as an outpatient Admission and Anticipated Discharge Date Admission Date: May 28, 2023 Supervising Physician Co-Signing Physician Notes I personally examined the patient and verified all [place] points of history and exam, discussed case, and agree with decision making with Dr Prado Ongoing right-sided weakness. No new complaints. Vitals noted, in general she is awake and alert pleasant no distress. Right-sided weakness. Breathing unlabored no accessory muscle use. Exam otherwise as above. MRI noted, lipids, etc. noted. Strokehypertension dyslipidemia and remote smoking most likely creating intracranial atherosclerosis; at the same time given her young age and OSAdefinitely want vigilance for cardioembolic sourceecho with bubble study to evaluate for PFO, ambulatory rhythm monitoring if atrial fibrillation is not unearthed while here. PT/OT, rehab, otherwise as above. Subjective Patient was seen bedside this morning. She is currently in the ICU. She continues to have right-sided arm and leg weakness. She is alert and oriented x3. She denies any complaints at this time besides being tired. With discussing previous history with patient. Patient states that she used to be on a blood pressure medication but stopped it about 1 year ago due to her losing about 60-70 pounds and felt that her blood pressure was well controlled. She did not monitor her blood pressure at home. In terms of weight loss, patient states that she was trying to lose weight with diet and exercise. Lost it over a 1 year. Patient does not have a primary care physician. She has a family history of breast cancer with her mom being diagnosed at the age of 50. She states that she has not had a mammogram in many years. Patient also was diagnosed with sleep apnea and given a CPAP. However she has not been using it for the past year. Patient also states that over the past year or so she will have headaches sometimes in the morning and sometimes throughout the day. Review of Systems Review of Systems: All systems reviewed & are unremarkable except as noted in Subjective Physical Exam Constitutional: WD/WN, vitals as above cooperative and comfortable Eyes: PERRL, conjunctivae normal, anicteric sclerae ENMT: external ear and nose normal, oropharynx normal Neck: trachea midline, no thyromegaly Respiratory: normal respiratory effort, lungs clear to auscultation Cardiovascular: RRR, no murmur, no edema Heart Sounds: normal S1 and normal S2; no murmur Vessels: no JVD Extremities: no edema Gastrointestinal (Abdomen): normal bowel sounds, soft, nontender, no hepatosplenomegaly Musculoskeletal: Right upper and lower extremity weakness, sensation intact Skin: no rashes, warm and dry Neurologic: Right upper and lower extremity weakness. No dysarthria, aphasia, or facial asymmetry. PERRLA Psychiatric: A+Ox3, euthymic affect Results & Data Results & Data Vital Signs (Past 12 Hours) Vital Signs Temp Pulse Pulse Resp BP BP Pulse Ox 05/29/23 07:05 66 12 141/74 H 94 05/29/23 05:35 76 16 148/79 H 94 05/29/23 06:05 72 18 138/75 94 05/29/23 05:05 68 16 143/78 H 95 05/29/23 04:35 67 18 139/65 94 05/29/23 04:05 67 16 138/76 95 05/29/23 03:35 68 20 152/92 H 94 05/29/23 03:05 73 18 149/82 H 90 05/29/23 00:35 66 18 152/82 H 95 05/29/23 02:35 69 20 154/84 H 96 05/29/23 00:11 69 05/29/23 00:05 37.1 C 64 16 153/82 H 96 05/29/23 02:05 73 22 160/82 H 95 05/29/23 01:35 64 20 163/77 H 95 05/29/23 00:05 37.1 C 64 18 152/82 H 95 05/28/23 23:29 65 16 151/73 H 96 05/28/23 23:17 72 17 176/81 H 96 05/28/23 23:06 71 19 151/73 H 94 05/28/23 22:51 66 16 94 05/28/23 23:04 67 16 159/82 H 96 05/28/23 22:50 18 185/89 H 95 05/28/23 22:35 37.0 C 67 18 156/82 H 97 05/28/23 22:21 73 15 157/86 H 96 05/28/23 20:06 78 05/28/23 22:05 79 18 99/68 L 95 05/28/23 21:50 95 H 16 136/82 95 05/28/23 21:35 36.9 C 71 18 136/61 95 05/28/23 21:30 133/73 05/28/23 21:20 81 19 159/89 H 96 05/28/23 21:10 77 18 184/81 H 93 05/28/23 20:58 37.1 C 73 18 167/78 H 95 05/28/23 20:56 72 20 182/90 H 94 05/28/23 20:54 76 212/113 H 05/28/23 20:53 74 212/113 H 05/28/23 20:43 71 203/107 H 05/28/23 20:40 67 221/117 H 05/28/23 20:39 68 219/116 H 05/28/23 20:38 69 219/116 H 05/28/23 20:34 69 18 244/128 H 95 05/28/23 20:33 94 05/28/23 20:22 79 18 226/126 H 95 05/28/23 19:53 99 H 05/28/23 19:53 99 H 279/152 H O2 Del Method 05/29/23 07:05 Room Air 05/29/23 05:35 Room Air 05/29/23 06:05 Room Air 05/29/23 05:05 Room Air 05/29/23 04:35 Room Air 05/29/23 04:05 Room Air 05/29/23 03:35 Room Air 05/29/23 03:05 Room Air 05/29/23 00:35 Room Air 05/29/23 02:35 Room Air 05/29/23 00:11 05/29/23 00:05 Room Air 05/29/23 02:05 Room Air 05/29/23 01:35 Room Air 05/29/23 00:05 Room Air 05/28/23 23:29 Room Air 05/28/23 23:17 Room Air 05/28/23 23:06 Room Air 05/28/23 22:51 Room Air 05/28/23 23:04 Room Air 05/28/23 22:50 Room Air 05/28/23 22:35 Room Air 05/28/23 22:21 Room Air 05/28/23 20:06 05/28/23 22:05 Room Air 05/28/23 21:50 Room Air 05/28/23 21:35 Room Air 05/28/23 21:30 05/28/23 21:20 Room Air 05/28/23 21:10 Room Air 05/28/23 20:58 Room Air 05/28/23 20:56 Room Air 05/28/23 20:54 05/28/23 20:53 05/28/23 20:43 05/28/23 20:40 05/28/23 20:39 05/28/23 20:38 05/28/23 20:34 Room Air 05/28/23 20:33 Room Air 05/28/23 20:22 Room Air 05/28/23 19:53 05/28/23 19:53 Resident Activity Tracking Resident Involvement: Resident Care Provided Care Provided: Adult Hospital Medicine (3) Hypertension Hypertension type: unspecified Qualified Code(s): I10 - Essential (primary) hypertension
--- NOTE | 2023-05-29 07:47 | XRay Report ---
XR chest 1V portable CLINICAL HISTORY: neuro deficit, acute stroke suspected TECHNIQUE: Single frontal radiograph of the chest was obtained. Comparison: Comparison is made to chest of 03/08/2018 FINDINGS: No lines and tubes are seen. The cardiomediastinal silhouette is normal. The lungs are clear. No evid ence of pleural effusion or pneumothorax. IMPRESSION: No acute chest disease. ACT 112: Negative or not required by law. Electronically signed by: Charlie Richmond M.D. 05/29/2023 7:46 AM
[2023-05-29 08:34] LABS: Basophils # (auto) 0.04 K/uL (0-0.2); Basophils % (auto) 0.4 %; Eosinophils # (auto) 0.04 K/uL (0-0.50); Eosinophils % (auto) 0.4 %; Hematocrit (blood only) 38.8 % (37.0-47.0); Hemoglobin 13.8 g/dl (12.0-16.0); Immature Granulocytes # (auto) 0.02 K/uL (0.01-0.20); Immature Granulocytes % (auto) 0.2 %; Lymphocytes # (auto) 2.99 K/uL (1.2-3.4); Lymphocytes % (auto) 30.9 %; Mean Corpuscular Hemoglobin 28.2 pg (25.0-34.0); Mean Corpuscular Hgb Conc 35.6 g/dL (32.0-36.0); Mean Corpuscular Volume 79.3 fL (80.0-100.0); Mean Platelet Volume 10.2 fL (9.4-12.4); Monocytes # (auto) 0.59 K/uL (0.11-0.59); Monocytes % (auto) 6.1 %; Platelet Count 286 K/uL (130-400); RDW Coefficient of Variation 12.6 % (11.5-14.5); RDW Standard Deviation 35.6 fL (36.4-46.3); Red Blood Count 4.89 M/uL (4.20-5.40); White Blood Count 9.68 K/ul (4.8-10.8)
[2023-05-29] MEDS: niCARdipine 25 MG in SODIUM CHLORIDE 0.9% 240 ML IV SCH ×3 (08:38→19:01)
[2023-05-29] MEDS: ICU Protocol for HYPERglycemia SCH ×4 (08:38→22:39)
--- NOTE | 2023-05-29 12:10 | XCELERA ---
[id number] [id number]
--- NOTE | 2023-05-29 13:25 | Neurology Consultation ---
Date of Consultation May 29, 2023 Assessment & Plan (1) Acute CVA (cerebrovascular accident): (2) Acute right hemiparesis: (3) Hypertension: Plan Patient has a relatively small left internal capsule acute stroke likely secondary to hypertensive small-vessel ischemic disease. MRI shows some mild old small-vessel ischemic disease of chronic nature. She is left with right hemiparesis and right judit sensory deficit. There is no speech or vision issues. The etiology of the stroke is likely secondary to her blood pressure. Her blood pressure was markedly elevated on admission. She has dyslipidemia and a remote history of cigarette smoking. There is no history of diabetes. Recommendations: 1. Control blood pressure as you are doing. Eventually, we should aim for mean arterial pressure of 95-100. 2. The patient would be a high dose statin candidate given her age and lipid parameters. 3. 81 mg aspirin tablet daily -to be given after the 24 hour waiting period post thrombolytic 4. Increase activity as able-physical, occupational, and speech therapy cons ults. She might be a good rehabilitation hospital candidate 5. Follow-up CT to be done 24 hours after thrombolytic. 6. I can follow as an outpatient several weeks after her discharge (with PA) Overall, I spent total of 80 minutes with this case including review of records, review of MRI films, direct evaluation the patient bedside, and discussed the case with the patient and RN at bedside, and Dr. Montana, including differential diagnosis and treatment options. History of Present Illness Reason for Consultation: Patient is a 58-year-old, who I was asked to see at the request of Dr. Montana, for neurologic consultation regarding stroke Requesting Physician: Dr. Montana Attending Physician: Isrrael Cortez DO History of Present Illness Patient has a history of intermittent hypertension for 10 years. About 2 years ago, she lost 70 lb through diet (180, down from 250) and her blood pressure improved some. She is not been on any medication. She does not take any antiplatelet medication either. She does not have any history of heart disease, diabetes, or dyslipidemia (as far she is aware). The patient had the sudden onset of a headache and right-sided numbness and weakness around 1800 on May 28. She arrived at the emergency room at 7:53 p.m. with a blood pressure of 279/152. Pulse was in the 90s and O2 saturation was 94%. She was afebrile respiratory rate was 16 She was evaluated by [facility] tele stroke and then ended up getting TNK. CBC and Chem profile were unremarkable. Urinalysis was unremarkable. CT angiography of the head neck were unremarkable without any vascular stenoses or anomalies. Echocardiogram showed mild left ventricular hypertrophy MRI of the brain showed a small left posterior capsule stroke with some mild scattered old small-vessel ischemic disease. I reviewed these films. Triglycerides were 250 and total cholesterol was 238. Hemoglobin A1c was 5.5. Laboratory studies for clotting disorders are pending. Today she is moving her right arm and leg some. She has no pain or headache. She is no vision problems or speech issues. Allergies Allergy/AdvReac Type Severity Reaction Status Date / Time bee venom protein (honey bee) Allergy Severe Anaphylaxis Verified 05/28/23 21:32 Home Medications Medication Instructions Recorded Confirmed Type No Known Home Medications 05/28/23 05/28/23 History Patient History Medical History Chronic GERD Generalized arthritis Sleep apnea Surgical History Elective H/O tubal ligation History of IUFD S/P tubal ligation Family History Mother , age 75 of post radiation pulmonary problems Breast cancer Father , age 68 of colon cancer Colorectal cancer Heart disease Hypertension Grandmother (Maternal) Hypertension Brother Leukemia Grandfather (Maternal) Lymphoma Social History (Updated 05/29/23 @ 13:38 by Tim Garcia MD) Smoking Status: Former smoker Tobacco Type: Cigarettes Age Started Using Tobacco: 35; Age Quit Using Tobacco: 42; packs per day: 1; Do You Dip or Chew Tobacco: No; Hx Alcohol Use: No Hx Substance Use: No Preferred Language: Micronesian Communication Ability: Effective 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 Beliefs That Will Affect Care: None Current Living Situation: Alone current occupational status: employed 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 Feels Safe at Home: Yes Physical Activity Frequency: Other Physical Activity Frequency Comment: occasional Assistive Devices: None Review of Systems Constitutional: no fever, no fatigue and no weakness Eyes: no diplopia, no eye pain and no worsening vision Ear, Nose, Mouth, Throat: no ear pain, no tinnitus, no hearing loss, no dizziness, no snoring, no hoarseness and no dysphagia Respiratory: no cough and no dyspnea Cardiovascular: no chest pain, no palpitations and no lightheadedness Gastrointestinal: no abdominal pain, no nausea and no vomiting Genitourinary: no dysuria, no urinary frequency and no urinary incontinence Musculoskeletal: no back pain, no neck pain, no radicular pain, no joint pain and no myalgia Integumentary: no rash and no lesions Neurologic: + localized weakness and + numbness; no gait abnormality, no generalized weakness, no tingling, no tremor(s), no abnormal movements, no headache(s), no abnormal speech, no confusion and no memory loss Psychiatric: no depression, no irritability, no anxiety, no difficulty concentrating, no confusion and no hallucinations Endocrine: no fatigue and no flushing Hematologic / Lymphatic: no easy bleeding and no easy bruising Allergy / Immunological: no urticaria and no problem reported Exam (Neuro) Physical Exam: The patient is right-handed. The patient is awake, alert, and attentive. Speech is normal without any aphasia or dysarthria. The patient can name objects, repeat phrases, and has normal spontaneous speech. Mentation and thought processes are intact, with orientation to person, place and time, and normal fund of knowledge. Attention and concentration are normal. Mood and affect are normal and appropriate. General appearance and grooming are normal. Short and long-term memory are intact. The discs are sharp with positive venous pulsations bilaterally. There are no exudates, hemorrhages, or blood vessel changes seen. Pupils are 3 mm bilaterally and reactive to light. Extraocular eye muscles are intact without nystagmus. Visual acuity and visual dubois seem normal grossly to confrontation. The patient has decreased sensation to touch in the right cheek compared to the left. Corneal reflexes are positive bilaterally. Although the patient can move the right corner of the mouth with voluntary smile, there was asymmetry at rest with a right facial droop. Hearing seems normal bilaterally. Palate moves well without asymmetry. There is normal sternocleidomastoid and trapezius (shoulder shrug) strength bilaterally. Tongue is midline with good strength bilaterally. Neck has a full range of motion without discomfort. There are no cervical bruits bilaterally. There are no cranial or ocular bruits. Heart is without murmur. There is a regular rhythm and rate. Cervical, thoracic, and lumbar spine are nontender to palpation. Gait was not tested but stance sitting up in bed is reasonable With outstretched arms there is no drift on the left. There are no resting, postural, or action tremors. There is no ataxia with finger to nose testing. There is good facility in the left hand. Right upper extremity is very weak with some decreased tone. There is decreased facility in the right. The left leg has some slightly decreased tone and is moderately weak. No other abnormal involuntary movements are noted. Motor strength is 3-4-/5 diffusely in the right upper extremity and 4-/5 diffusely in the right lower extremity. The left arm and leg are 5/5 diffusely proximally and distally Sensory examination reveals some decreased sensation to pin and touch diffusely in the right arm and right leg compared to the left arm and leg which are normal. Reflexes are 2/4 in the biceps, triceps, brachioradialis, quadriceps, and Achilles tendons bilaterally. There is no clonus bilaterally. Toes are downgoing with plantar stimulation on the left and upgoing to plantar stimulation the right Peripheral pulses are present and of normal quality distally in all 4 limbs. There is no peripheral edema noted in the limbs. Results & Data Vital Signs (Past 12 Hours) Vital Signs Pulse Resp BP Pulse Ox O2 Del Method 05/29/23 13:05 18 165/71 H 94 Room Air 05/29/23 12:05 88 15 149/103 H 93 Room Air 05/29/23 11:05 88 12 145/93 H 94 Room Air 05/29/23 08:00 Room Air 05/29/23 10:05 95 H 16 162/79 H 92 Room Air 05/29/23 09:05 73 16 157/86 H 93 Room Air 05/29/23 08:05 71 16 167/92 H 94 Room Air 05/29/23 07:05 66 12 141/74 H 94 Room Air 05/29/23 05:35 76 16 148/79 H 94 Room Air 05/29/23 06:05 72 18 138/75 94 Room Air 05/29/23 05:05 68 16 143/78 H 95 Room Air 05/29/23 04:35 67 18 139/65 94 Room Air 05/29/23 04:05 67 16 138/76 95 Room Air 05/29/23 03:35 68 20 152/92 H 94 Room Air 05/29/23 03:05 73 18 149/82 H 90 Room Air 05/29/23 02:35 69 20 154/84 H 96 Room Air 05/29/23 02:05 73 22 160/82 H 95 Room Air 05/29/23 01:35 64 20 163/77 H 95 Room Air PG Care Time/CCT Total # of Minutes Spent Total Time Spent with Patient: Total time spent is greater than 50% in coordination of care (as documented) at patient's floor/unit and/or counseling patient: Coding Level of Care Code 44941 IN/OBS CONSULT LVL 5,80M Diagnoses Acute CVA (cerebrovascular accident) I63.9 Acute right hemiparesis G81.91 Hypertension I10 Hypertension type: unspecified Time Spent (min) 80 (3) Hypertension Hypertension type: unspecified Qualified Code(s): I10 - Essential (primary) hypertension
--- NOTE | 2023-05-29 14:02 | Pharmacy Report ---
- Date of Service May 29, 2023 - Pharmacy CVA/TIA Medication Review Medications to Prevent Stroke handout has been added to the patients discharge packet. Antiplatelet(s) * ASA 81 mg daily to begin 24 hours after TNKase Cholesterol * High intensity statin: atorvastatin 40 mg daily DVT Prophylaxis * SCD knee Therapeutic Anticoagulation * No history of Afib/Aflutter noted Type 2 Diabetes * Patient does not have T2DM
[2023-05-29] MEDS: lisinopril 10 MG TAB PO SCH (14:18)
[2023-05-29] MEDS: ATORVASTATIN 40 MG TAB PO SCH (14:27)
[2023-05-29] MEDS: amLODIPine BESYLATE 5 MG TAB PO SCH (14:27)
--- NOTE | 2023-05-29 15:44 | Electrocardiogram Report ---
Test Reason : Blood Pressure : / mmHG Vent. Rate : 078 BPM Atrial Rate : 078 BPM P-R Int : 170 ms QRS Dur : 090 ms QT Int : 398 ms P-R-T Axes : 067 043 048 degrees QTc Int : 453 ms Normal sinus rhythm Possible Left atrial enlargement Septal infarct , age undetermined Abnormal ECG When compared with ECG of 02-MAR-2018 11:33, Septal infarct is now Present QT has lengthened Confirmed by Lj Hernandez ([id number]) on 05/29/2023 3:43:25 PM Referred By: REFERRED SELF Confirmed By:Lj Hernandez
--- NOTE | 2023-05-29 15:50 | Electrocardiogram Report ---
Test Reason : Blood Pressure : / mmHG Vent. Rate : 061 BPM Atrial Rate : 061 BPM P-R Int : 154 ms QRS Dur : 086 ms QT Int : 470 ms P-R-T Axes : 057 043 042 degrees QTc Int : 473 ms Normal sinus rhythm Possible Left atrial enlargement Borderline ECG When compared with ECG of 28-MAY-2023 20:11, (unconfirmed) Criteria for Septal infarct are no longer Present Confirmed by Lj Hernandez ([id number]) on 05/29/2023 3:49:44 PM Referred By: REFERRED SELF Confirmed By:Lj Hernandez
--- NOTE | 2023-05-29 17:18 | Billing Data ---
Date of Service May 29, 2023 Coding Level of Care Code 49644 SUB INP/OBS CARE
[2023-05-29] MEDS: FAMOTIDINE 20 MG TAB PO SCH (22:30)
--- NOTE | 2023-05-29 23:19 | CT Scan Report ---
Exam(s): CT HEAD Without Contrast EXAM: CT Head Without Intravenous Contrast CLINICAL HISTORY: Reason for exam: 24 hour post TNK- stat for read only. TECHNIQUE: Axial computed tomography images of the head/brain without intravenous contrast. CTDI is 38.31 mGy and DLP is 703.85 mGy-cm. Automated exposure control was utilized for the study. A dose lowering technique was utilized adhering to the principles of ALARA. COMPARISON: Comparison made to prior brain MRI from May 29, 2023. FINDINGS: Brain: There is an acute ischemic injury of the left capsule with moderate cytotoxic edema. No evidence of hemorrhagic transformation. No hemorrhage. Mild nonspecific white light or changes. Large right choroidal fissure cyst. 309.3 x 7.8 mm. Ventricles: Unremarkable. No ventriculomegaly. Bones/joints: Benign bony exostosis of the right frontal bone. No acute fracture. Soft tissues: Unremarkable. Sinuses: Unremarkable as visualized. No acute sinusitis. Mastoid air cells: Unremarkable as visualized. No mastoid effusion. IMPRESSION: Acute ischemic injury of the left capsule without evidence of hemorrhagic transformation. Electronically signed by: Chyna Gamboa MD 05/29/23 23:19 PM
[2023-05-30 05:04] LABS: Basophils # (auto) 0.05 K/uL (0-0.2); Basophils % (auto) 0.5 %; Eosinophils # (auto) 0.13 K/uL (0-0.50); Eosinophils % (auto) 1.4 %; Hematocrit (blood only) 40.9 % (37.0-47.0); Immature Granulocytes # (auto) 0.02 K/uL (0.01-0.20); Immature Granulocytes % (auto) 0.2 %; Lymphocytes # (auto) 3.65 K/uL (1.2-3.4); Lymphocytes % (auto) 39.4 %; Mean Corpuscular Hemoglobin 27.9 pg (25.0-34.0); Mean Corpuscular Hgb Conc 34.2 g/dL (32.0-36.0); Mean Corpuscular Volume 81.5 fL (80.0-100.0); Mean Platelet Volume 9.8 fL (9.4-12.4); Monocytes # (auto) 0.86 K/uL (0.11-0.59); Monocytes % (auto) 9.3 %; Neutrophils # (auto) 4.56 K/uL (1.40-6.50); Neutrophils % (auto) 49.2 %; Platelet Count 286 K/uL (130-400); RDW Coefficient of Variation 12.8 % (11.5-14.5); RDW Standard Deviation 37.6 fL (36.4-46.3); Red Blood Count 5.02 M/uL (4.20-5.40); White Blood Count 9.27 K/ul (4.8-10.8)
[2023-05-30 05:08] LABS: Albumin Level 4.3 gm/dl (3.4-5.0); BUN Creatinine Ratio 19.8 (10-20); Bilirubin Direct 0.2 mg/dl (0-0.2); Bilirubin,Total 0.9 mg/dl (0.2-1.0); Calcium 9.1 mg/dl (8.6-10.3); Creatinine Clr Calc Pharmacy 79.9 ml/min; Est GFR (African American) 87.5 ml/min; Est GFR (Non-African American) 75.5 ml/min; Magnesium 2.5 mg/dl (1.7-2.4); Phosphorus 5.2 mg/dl (2.5-4.9); Potassium 3.3 mmol/L (3.5-5.1); Total Protein 7.3 gm/dl (6.0-8.3)
[2023-05-30 05:20] LABS: Partial Thromboplastin Ratio 1.1; Partial Thromboplastin Time 29.8 Seconds (21.0-31.0)
--- NOTE | 2023-05-30 05:30 | Hospitalist Progress Note ---
Date of Service May 30, 2023 Assessment & Plan (1) Acute CVA (cerebrovascular accident): (2) Stroke-like symptom: (3) Hypertension: (4) Anxiety: (5) Chronic GERD: (6) Sleep apnea: (7) Hypokalemia: (8) Admitted to intensive care unit: (9) Cerebrovascular accident aborted by administration of thrombolytic agent: (10) Weight loss: Plan Patient is a 58-year-old female with past medical history of GERD, untreated hypertension, untreated sleep apnea, and recent significant weight loss who presented to hospital for sudden onset of headache with right sided arm weakness and numbness that started at 1800 on 05/28/2023. Brain MRI showed acute ischemic stroke of the left posterior capsule. TNK given in the ED. Acute ischemic stroke Head CT negative, head CTA negative, neck CTA negative Brain MRI showed acute ischemic injury of the left posterior capsule without evidence of hemorrhagic transformation on 05/29/2023. Neurology consulted which states patient has a relatively small left internal capsule acute stroke likely secondary to hypertensive small vessel ischemic disease. TNK given in the ED administered at 2110. Currently in the ICU. TTE was unremarkable Lipid panel showed hyperlipidemia, should start statin once medically stabilized. A1c normal. Neurology consulted which states patient has a relatively small left internal capsule acute stroke likely secondary to hypertensive small vessel ischemic disease. Repeat CT head at 24 hours post TNK showed acute ischemic injury of the left capsule without evidence of hemorrhagic transformation. Neurochecks per protocol, downgraded from ICU on 05/30. Patient remains symptomatic with right hemiparesis and right hemisensory defect. Will most likely need placement at discharge. PT/OT consulted. PT OT recommends inpatient rehab stay as she is unsafe to return home. Prothrombin gene, beta-2 GPI, FRANCISCO, factor V Leiden, factor VIII, Antithrombin III, protein S are all currently pending at this time. Though seems unlikely to be underlying cause of patient's stroke. Underlying etiology most likely multifactorial of untreated hypertension, untreated sleep apnea, untreated hyperlipidemia. Patient should have close follow-up with PCP regarding risk reduction. Hypertension Patient was previously on hydrochlorothiazidelisinopril 25 mg - 20 mg. She stopped taking about 1 year ago. We will allow permissive hypertension for now. Low patient has pressures as high as 279/150. In ED patient received labetalol 10 mg IV x4, then was started on nicardipine drip to obtain systolic blood pressure less than 180 administer TNK Nicardipine drip was tapered and briefly off, and then restarted at 2.5 mg/h to target systolic blood pressure 140-160 Chronic GERD -was on omeprazole 10 mg. Sleep apnea Was previously prescribed a CPAP machine, stopped using approximately 1 year ago. Should have outpatient follow-up with PCP. Given the fact that patient has had a stroke in the setting of sleep apnea and no significant underlying cause. We will likely send home on Holter monitor to rule out any paroxysmal A-fib. Hypokalemia Potassium 3.[address] NSS + KCl 20 mEq at 80 mils per hour Follow serial CBC with differential, renal function panel and magnesium levels Weight loss Patient with a 6070 weight loss over the past year. States that this was intentional. Family history of breast cancer with mother diagnosed when she was 52. Most likely not underlying cause of stroke, should follow-up with PCP if further work-up is needed. Should have a mammogram at least given significant family history. Follow-up as an outpatient. Anxiety She will follow-up as an outpatient Nutrition: Regular Code status: full code Consults: Neurology PT/OT: Yes, recommends inpatient rehab Case management: Yes, patient does not have health insurance at this time, D&L referral placed. Dispo: PCU/Tele Thank you for allowing me to participate in the care of your patient. -Dr. Srinivasan Prado PGY2 Admission and Anticipated Discharge Date Admission Date: May 28, 2023 Supervising Physician Co-Signing Physician Notes I personally examined the patient and verified all [place] points of history and exam, discussed case, and agree with decision making with Dr Prado Ongoing right-sided weakness. No new complaints. [facility] liaison in the roomdiscussed readiness for transfer to rehab with her. Vitals noted, in general she is awake and alert pleasant no distress. Right-sided weakness. Breathing unlabored no accessory muscle use. Exam otherwise as above. MRI noted, lipids, etc. noted. Strokehypertension dyslipidemia and remote smoking most likely creating intracranial atherosclerosis (aspirin, statin, blood pressure control); at the same time given her young age and OSAdefinitely want vigilance for cardioembolic sourceecho with bubble study to evaluate for PFO Was very reassuring, ambulatory rhythm monitoring if atrial fibrillation is not unearthed while here. PT/OT, rehab, otherwise as above. Subjective Patient was seen bedside this AM. She continues to have right-sided weakness. She also states that she has some right-sided face numbness and tingling. Patient states that she feels as though her deficits are about the same at this time. Review of Systems Review of Systems: All systems reviewed & are unremarkable except as noted in Subjective Physical Exam Constitutional: WD/WN, vitals as above cooperative and comfortable Eyes: PERRL, conjunctivae normal, anicteric sclerae ENMT: external ear and nose normal, oropharynx normal Neck: trachea midline, no thyromegaly Respiratory: normal respiratory effort, lungs clear to auscultation Cardiovascular: RRR, no murmur, no edema Heart Sounds: normal S1 and normal S2; no murmur Vessels: no JVD Extremities: no edema Gastrointestinal (Abdomen): normal bowel sounds, soft, nontender, no hepatosplenomegaly Musculoskeletal: Right upper and lower extremity weakness, Skin: no rashes, warm and dry Neurologic: Right upper and lower extremity weakness and decreased sensation. No dysarthria, aphasia, or facial asymmetry. PERRLA Psychiatric: A+Ox3, euthymic affect Results & Data Results & Data Vital Signs (Past 12 Hours) Vital Signs Temp Pulse Pulse Resp BP BP Pulse Ox 05/30/23 02:00 67 17 93 05/30/23 01:01 107/69 05/30/23 01:01 66 17 95 05/30/23 01:00 66 17 94 05/30/23 00:00 68 18 92 05/30/23 00:00 121/67 05/29/23 23:00 94 05/29/23 22:45 75 18 94 05/29/23 22:30 74 19 93 05/29/23 22:30 129/72 05/29/23 22:15 78 22 93 05/29/23 22:15 133/76 05/29/23 22:03 148/101 H 05/29/23 22:03 72 20 95 05/29/23 22:00 87 19 05/29/23 21:54 78 13 05/29/23 21:16 73 17 93 05/29/23 21:16 146/73 H 05/29/23 21:15 69 22 94 05/29/23 21:01 157/63 H 05/29/23 21:01 74 20 93 05/29/23 21:00 70 13 94 05/29/23 20:45 70 20 94 05/29/23 20:45 146/77 H 05/29/23 20:30 74 19 94 05/29/23 20:30 167/74 H 05/29/23 20:15 74 24 94 05/29/23 20:15 139/86 05/29/23 20:01 81 19 93 05/29/23 20:01 152/109 H 05/29/23 20:00 72 25 H 94 05/29/23 19:46 125/69 05/29/23 19:46 82 16 94 05/29/23 19:45 76 24 94 05/29/23 19:43 73 16 95 05/29/23 19:43 153/84 H 05/29/23 19:15 85 23 93 05/29/23 19:00 71 17 92 05/29/23 19:00 123/69 05/29/23 21:05 36.6 C 73 20 146/73 H 95 05/29/23 20:05 36.9 C 75 20 152/109 H 97 05/29/23 19:05 100 H 16 123/69 92 05/29/23 18:05 36.7 C 82 14 151/75 H 92 O2 Del Method 05/30/23 02:00 05/30/23 01:01 05/30/23 01:01 05/30/23 01:00 05/30/23 00:00 05/30/23 00:00 05/29/23 23:00 05/29/23 22:45 05/29/23 22:30 05/29/23 22:30 05/29/23 22:15 05/29/23 22:15 05/29/23 22:03 05/29/23 22:03 05/29/23 22:00 05/29/23 21:54 05/29/23 21:16 05/29/23 21:16 05/29/23 21:15 05/29/23 21:01 05/29/23 21:01 05/29/23 21:00 05/29/23 20:45 05/29/23 20:45 05/29/23 20:30 05/29/23 20:30 05/29/23 20:15 05/29/23 20:15 05/29/23 20:01 05/29/23 20:01 05/29/23 20:00 05/29/23 19:46 05/29/23 19:46 05/29/23 19:45 05/29/23 19:43 05/29/23 19:43 05/29/23 19:15 05/29/23 19:00 05/29/23 19:00 05/29/23 21:05 Room Air 05/29/23 20:05 Room Air 05/29/23 19:05 Room Air 05/29/23 18:05 Room Air Resident Activity Tracking Resident Involvement: Resident Care Provided Care Provided: Adult Hospital Medicine (3) Hypertension Hypertension type: unspecified Qualified Code(s): I10 - Essential (primary) hypertension
[2023-05-30] MEDS: niCARdipine 25 MG in SODIUM CHLORIDE 0.9% 240 ML IV SCH (06:16)
[2023-05-30] MEDS: ICU Protocol for HYPERglycemia SCH ×3 (07:34→16:46)
[2023-05-30] MEDS: amLODIPine BESYLATE 5 MG TAB PO SCH (09:12)
[2023-05-30] MEDS: ATORVASTATIN 40 MG TAB PO SCH (09:12)
[2023-05-30] MEDS: ASPIRIN 81 MG CHEW PO SCH (09:13)
[2023-05-30] MEDS: lisinopril 10 MG TAB PO SCH (09:13)
[2023-05-30] MEDS: FAMOTIDINE 20 MG TAB PO SCH ×2 (09:13→19:58)
--- NOTE | 2023-05-30 10:13 | Critical Care Progress Note ---
Date of Service May 30, 2023 Assessment & Plan (1) Acute CVA (cerebrovascular accident): Plan: Impression: 58-year-old female presents to the ICU with strokelike symptoms and suspected CVA with right-sided weakness in the upper and lower extremities along with numbness. Neuro - Acute CVAneuro exam as above. Status post TNKase administration at 2110 per telemetry neurology recommendations -CT head, CTA head and neck unremarkable for acute findings -Follow-up MRI and TTE -Follow-up lipid panel, A1c -Monitor in ICU per 24-hour post TNKase protocol -CT head at 24 hours post TNKase -Neurology consult pending, will follow recommendation Cardiac - HTNallow permissive hypertensive for now. Patient was on nicardipine drip for initial blood pressure 279/150. -We will attempt to keep systolic blood pressure in the 1 40-1 70 range. -Apparently patient was previously on lisinopril but discontinued this medication. Will likely need restarted on oral agent soon. Continuous monitoring on telemetry Respiratory - No history of pulmonary disease. No respiratory distress. Continuous monitoring on pulse ox for now GI - N.p.o. pending swallow study. Advance diet as tolerated RENAL/LYTES - Creatinine within normal limits, monitor routine BMPs and replete electrolytes as indicated. Consider IV fluids if unable to take p.o. - Strict I's and O's ENDO - No history of diabetes or thyroid disease. ICU hyperglycemic HEME - H&H stable, monitor routine CBC ID - No indication for infectious process at this time LINES/IV ACCESS - Peripheral IVs DVT PROPHYLAXIS - SCDs, hold anticoagulation for 24 hours post TNKase Thank you for allowing us to participate in the care of this patient. Please refer to my attending physician's documentation for any further recommendations. (2) Hypertension: (3) Anxiety: Admission and Anticipated Discharge Date Admission Date: May 28, 2023 Results & Data Results & Data Vital Signs (Past 12 Hours) Vital Signs Temp Pulse Resp BP Pulse Ox O2 Del Method 05/30/23 08:00 Room Air 05/30/23 08:00 77 05/30/23 08:43 36.5 C 05/30/23 08:30 77 16 92 05/30/23 08:01 118/90 05/30/23 08:01 82 26 H 94 05/30/23 08:00 72 15 94 05/30/23 07:30 81 17 93 05/30/23 07:01 62 13 93 05/30/23 07:01 141/62 H 05/30/23 07:00 64 17 91 05/30/23 06:30 64 17 92 05/30/23 06:00 62 18 91 05/30/23 06:00 159/74 H 05/30/23 05:30 68 14 94 05/30/23 05:00 63 18 91 05/30/23 05:00 148/76 H 05/30/23 04:33 81 19 05/30/23 04:00 75 16 91 05/30/23 04:00 131/73 05/30/23 03:30 65 18 92 05/30/23 03:00 57 L 14 95 05/30/23 03:00 122/65 05/30/23 02:30 61 16 93 05/30/23 02:01 63 15 94 05/30/23 02:01 115/73 05/30/23 02:00 67 17 93 05/30/23 01:01 107/69 05/30/23 01:01 66 17 95 05/30/23 01:00 66 17 94 05/30/23 00:00 68 18 92 05/30/23 00:00 121/67 05/29/23 23:00 94 05/29/23 22:45 75 18 94 05/29/23 22:30 74 19 93 05/29/23 22:30 129/72 05/29/23 22:15 78 22 93 05/29/23 22:15 133/76 Coding Diagnoses Acute CVA (cerebrovascular accident) I63.9 Hypertension I10 Hypertension type: unspecified Anxiety F41.9 (2) Hypertension Hypertension type: unspecified Qualified Code(s): I10 - Essential (primary) hypertension
--- NOTE | 2023-05-30 18:36 | Billing Data ---
Date of Service May 30, 2023 Coding Level of Care Code 05607 SUB INP/OBS CARE
[2023-05-30] MEDS: ACETAMINOPHEN 325 MG TAB PO PRN (19:58)
--- NOTE | 2023-05-31 06:52 | Hospitalist Progress Note ---
Date of Service May 31, 2023 Assessment & Plan (1) Acute CVA (cerebrovascular accident): (2) Stroke-like symptom: (3) Hypertension: (4) Anxiety: (5) Chronic GERD: (6) Sleep apnea: (7) Hypokalemia: (8) Admitted to intensive care unit: (9) Cerebrovascular accident aborted by administration of thrombolytic agent: (10) Weight loss: Plan Patient is a 58-year-old female with past medical history of GERD, untreated hypertension, untreated sleep apnea, and recent significant weight loss who presented to hospital for sudden onset of headache with right sided arm weakness and numbness that started at 1800 on 05/28/2023. Brain MRI showed acute ischemic stroke of the left posterior capsule. TNK given in the ED. Acute ischemic stroke Head CT negative, head CTA negative, neck CTA negative Brain MRI showed acute ischemic injury of the left posterior capsule without evidence of hemorrhagic transformation on 05/29/2023. Neurology consulted which states patient has a relatively small left internal capsule acute stroke likely secondary to hypertensive small vessel ischemic disease. TNK given in the ED administered at 2110. Currently in the ICU. TTE was unremarkable Lipid panel showed hyperlipidemia, started on atorvastatin 40 mg. A1c normal. Neurology consulted which states patient has a relatively small left internal capsule acute stroke likely secondary to hypertensive small vessel ischemic disease. Repeat CT head at 24 hours post TNK showed acute ischemic injury of the left capsule without evidence of hemorrhagic transformation. Neurochecks per protocol, downgraded from ICU on 05/30. Patient remains symptomatic with right hemiparesis and right hemisensory defect. Will most likely need placement at discharge. PT OT recommends inpatient rehab stay as she is unsafe to return home. Prothrombin gene, beta-2 GPI, FRANCISCO, factor V Leiden, factor VIII, Antithrombin III, protein S are all currently pending at this time. Though seems unlikely to be underlying cause of patient's stroke. Underlying etiology most likely multifactorial of untreated hypertension, untreated sleep apnea, untreated hyperlipidemia. Patient should have close follow-up with PCP regarding risk reduction. Currently on aspirin, lisinopril, amlodipine, and atorvastatin Hypertension Patient was previously on hydrochlorothiazidelisinopril 25 mg - 20 mg. She stopped taking about 1 year ago. We will allow permissive hypertension for now. Low patient has pressures as high as 279/150. In ED patient received labetalol 10 mg IV x4, then was started on nicardipine drip to obtain systolic blood pressure less than 180 administer TNK Currently on lisinopril 20 mg and amlodipine 5 mg. Chronic GERD -was on omeprazole 10 mg. Sleep apnea Was previously prescribed a CPAP machine, stopped using approximately 1 year ago. Should have outpatient follow-up with PCP. Given the fact that patient has had a stroke in the setting of sleep apnea and no significant underlying cause. We will likely send home on Holter monitor to rule out any paroxysmal A-fib. Hypokalemia Potassium 3.[address] NSS + KCl 20 mEq at 80 mils per hour Follow serial CBC with differential, renal function panel and magnesium levels Weight loss Patient with a 6070 weight loss over the past year. States that this was intentional. Family history of breast cancer with mother diagnosed when she was 52. Most likely not underlying cause of stroke, should follow-up with PCP if further work-up is needed. Should have a mammogram at least given significant family history. Follow-up as an outpatient. Anxiety She will follow-up as an outpatient Nutrition: Regular Code status: full code Consults: Neurology PT/OT: Yes, recommends inpatient rehab Case management: Yes, patient does not have health insurance at this time, D&L referral placed, will follow-up on Friday Dispo: PCU/Tele Thank you for allowing me to participate in the care of your patient. -Dr. Srinivasan Prado PGY2 Admission and Anticipated Discharge Date Admission Date: May 28, 2023 Supervising Physician Co-Signing Physician Notes I personally examined the patient and verified all [place] points of history and exam, discussed case, and agree with decision making with Dr Prado Starting to have some right-sided return of function.. Vitals noted, in general she is awake and alert pleasant no distress. Right-sided weakness Improvingface is basically symmetric, and she is able to have some coarse movement of her right arm and leg. Breathing unlabored no accessory muscle use. Exam otherwise as above. MRI noted, lipids, etc. noted. Strokehypertension dyslipidemia and remote smoking most likely creating intracranial atherosclerosis (aspirin, statin, blood pressure control); at the same time given her young age and OSAdefinitely want vigilance for cardioembolic sourceecho with bubble study to evaluate for PFO Was very re assuring, ambulatory rhythm monitoring if atrial fibrillation is not unearthed while here. PT/OT, rehab placement once insurance issues are sorted out, continue therapy here in the meantime. Subjective Patient was seen bedside this AM. She continues to have right-sided weakness. Though improving. Able to move her arm and leg a little bit more than yesterday. Though still having significant weakness on the right side of her body Physical Exam Constitutional: WD/WN, vitals as above cooperative and comfortable Eyes: PERRL, conjunctivae normal, anicteric sclerae ENMT: external ear and nose normal, oropharynx normal Neck: trachea midline, no thyromegaly Respiratory: normal respiratory effort, lungs clear to auscultation Cardiovascular: RRR, no murmur, no edema Heart Sounds: normal S1 and normal S2; no murmur Vessels: no JVD Extremities: no edema Gastrointestinal (Abdomen): normal bowel sounds, soft, nontender, no hepatosplenomegaly Skin: no rashes, warm and dry Psychiatric: A+Ox3, euthymic affect Results & Data Results & Data Vital Signs (Past 12 Hours) Vital Signs Temp Pulse Pulse Resp BP Pulse Ox O2 Del Method 05/31/23 02:47 37.0 C 57 L 20 173/96 H 97 Room Air 05/31/23 00:33 72 05/30/23 23:00 36.8 C 69 20 150/88 H 97 Room Air 05/30/23 20:04 36.7 C 69 18 157/84 H 96 Room Air Resident Activity Tracking Resident Involvement: Resident Care Provided Care Provided: Adult Hospital Medicine (3) Hypertension Hypertension type: unspecified Qualified Code(s): I10 - Essential (primary) hypertension
[2023-05-31 07:00] LABS: Albumin Level 4.2 gm/dl (3.4-5.0); BUN Creatinine Ratio 22.8 (10-20); Bilirubin Direct 0.1 mg/dl (0-0.2); Bilirubin,Total 0.9 mg/dl (0.2-1.0); Calcium 9.4 mg/dl (8.6-10.3); Creatinine Clr Calc Pharmacy 86.8 ml/min; Est GFR (Non-African American) 83.7 ml/min; Magnesium 2.4 mg/dl (1.7-2.4); Phosphorus 4.5 mg/dl (2.5-4.9); Potassium 3.9 mmol/L (3.5-5.1); Total Protein 7.4 gm/dl (6.0-8.3)
[2023-05-31 07:31] LABS: Basophils # (auto) 0.04 K/uL (0-0.2); Basophils % (auto) 0.5 %; Eosinophils # (auto) 0.18 K/uL (0-0.50); Eosinophils % (auto) 2.1 %; Hematocrit (blood only) 41.5 % (37.0-47.0); Hemoglobin 14.2 g/dl (12.0-16.0); Immature Granulocytes # (auto) 0.02 K/uL (0.01-0.20); Immature Granulocytes % (auto) 0.2 %; Lymphocytes # (auto) 3.37 K/uL (1.2-3.4); Lymphocytes % (auto) 40.2 %; Mean Corpuscular Hemoglobin 28.1 pg (25.0-34.0); Mean Corpuscular Hgb Conc 34.2 g/dL (32.0-36.0); Mean Corpuscular Volume 82.2 fL (80.0-100.0); Mean Platelet Volume 10.1 fL (9.4-12.4); Monocytes % (auto) 7.2 %; Neutrophils # (auto) 4.17 K/uL (1.40-6.50); Neutrophils % (auto) 49.8 %; Platelet Count 269 K/uL (130-400); RDW Coefficient of Variation 12.8 % (11.5-14.5); RDW Standard Deviation 38.2 fL (36.4-46.3); Red Blood Count 5.05 M/uL (4.20-5.40); White Blood Count 8.38 K/ul (4.8-10.8)
[2023-05-31 07:55] LABS: Partial Thromboplastin Ratio 1.1; Partial Thromboplastin Time 29.7 Seconds (21.0-31.0); Prothrombin Time 11.1 Seconds (9.0-12.0)
[2023-05-31] MEDS: amLODIPine BESYLATE 5 MG TAB PO SCH (08:15)
[2023-05-31] MEDS: ASPIRIN 81 MG CHEW PO SCH (08:15)
[2023-05-31] MEDS: ATORVASTATIN 40 MG TAB PO SCH (08:15)
[2023-05-31] MEDS: lisinopril 10 MG TAB PO SCH (08:15)
[2023-05-31] MEDS: FAMOTIDINE 20 MG TAB PO SCH ×2 (08:16→20:21)
--- NOTE | 2023-05-31 18:36 | Billing Data ---
Date of Service May 31, 2023 Coding Level of Care Code 98432 SUB INP/OBS CARE
[2023-05-31] MEDS: ACETAMINOPHEN 325 MG TAB PO PRN (21:52)
--- NOTE | 2023-06-01 07:01 | Hospitalist Progress Note ---
Date of Service June 01, 2023 Assessment & Plan (1) Acute CVA (cerebrovascular accident): (2) Stroke-like symptom: (3) Hypertension: (4) Anxiety: (5) Chronic GERD: (6) Sleep apnea: (7) Hypokalemia: (8) Admitted to intensive care unit: (9) Cerebrovascular accident aborted by administration of thrombolytic agent: (10) Weight loss: Plan Patient is a 58-year-old female with past medical history of GERD, untreated hypertension, untreated sleep apnea, and recent significant weight loss who presented to hospital for sudden onset of headache with right sided arm weakness and numbness that started at 1800 on 05/28/2023. Brain MRI showed acute ischemic stroke of the left posterior capsule. TNK given in the ED. Acute ischemic stroke Head CT negative, head CTA negative, neck CTA negative Brain MRI showed acute ischemic injury of the left posterior capsule without evidence of hemorrhagic transformation on 05/29/2023. Neurology consulted which states patient has a relatively small left internal capsule acute stroke likely secondary to hypertensive small vessel ischemic disease. TNK given in the ED administered at 2110. Currently in the ICU. TTE was unremarkable Lipid panel showed hyperlipidemia, started on atorvastatin 40 mg. A1c normal. Neurology consulted which states patient has a relatively small left internal capsule acute stroke likely secondary to hypertensive small vessel ischemic disease. Repeat CT head at 24 hours post TNK showed acute ischemic injury of the left capsule without evidence of hemorrhagic transformation. Neurochecks per protocol, downgraded from ICU on 05/30. Patient remains symptomatic with right hemiparesis and right hemisensory defect. Will most likely need placement at discharge. PT OT recommends inpatient rehab stay as she is unsafe to return home. Prothrombin gene, beta-2 GPI, FRANCISCO, factor V Leiden, factor VIII, Antithrombin III, protein S are all currently pending at this time. Though seems unlikely to be underlying cause of patient's stroke. Underlying etiology most likely multifactorial of untreated hypertension, untreated sleep apnea, untreated hyperlipidemia. Patient should have close follow-up with PCP regarding risk reduction. Currently on aspirin, lisinopril, amlodipine, and atorvastatin. Currently on telemetry, will need Holter monitor at time of discharge. Currently pending placement at this time. Hypertension Patient was previously on hydrochlorothiazidelisinopril 25 mg - 20 mg. She stopped taking about 1 year ago. We will allow permissive hypertension for now. Low patient has pressures as high as 279/150. In ED patient received labetalol 10 mg IV x4, then was started on nicardipine drip to obtain systolic blood pressure less than 180 administer TNK Currently on lisinopril 20 mg and amlodipine 5 mg. Chronic GERD -was on omeprazole 10 mg. Sleep apnea Was previously prescribed a CPAP machine, stopped using approximately 1 year ago. Should have outpatient follow-up with PCP. Given the fact that patient has had a stroke in the setting of sleep apnea and no significant underlying cause. We will likely send home on Holter monitor to rule out any paroxysmal A-fib. Hypokalemia Potassium 3.[address] NSS + KCl 20 mEq at 80 mils per hour Follow serial CBC with differential, renal function panel and magnesium levels Weight loss Patient with a 6070 weight loss over the past year. States that this was intentional. Family history of breast cancer with mother diagnosed when she was 50. Most likely not underlying cause of stroke, should follow-up with PCP if further work-up is needed. Should have a mammogram at least given significant family history. Follow-up as an outpatient. Anxiety She will follow-up as an outpatient Nutrition: Regular Code status: full code Consults: Neurology PT/OT: Yes, recommends inpatient rehab Case management: Yes, patient does not have health insurance at this time, D&L referral placed, will follow-up on Friday Dispo: Med/Surg Thank you for allowing me to participate in the care of your patient. -Dr. Srinivasan Prado PGY2 Admission and Anticipated Discharge Date Admission Date: May 28, 2023 Supervising Physician Co-Signing Physician Notes I personally examined the patient and verified all [place] points of history and exam, discussed case, and agree with decision making with Dr Prado feeling tired today, right-sided movement about the same as before. Vitals noted, in general she is awake and alert pleasant no distress. Right-sided weakness Improvingface is basically symmetric, and she is able to have some coarse movement of her right arm and leg. Breathing unlabored no accessory muscle use. Exam otherwise as above. MRI noted, lipids, etc. noted. Strokehypertension dyslipidemia and remote smoking most likely creating intracranial atherosclerosis (aspirin, statin, blood pressure control); at the same time given her young age and OSAdefinitely want vigilance for cardioembolic sourceecho with bubble study to evaluate for PFO Was very reassuring, ambulatory rhythm monitoring if atrial fibrillation is not unearthed while here. PT/OT, rehab placement once insurance issues are sorted out, continue therapy here in the meantime. stable for downgrade from telemetry Subjective Patient was seen bedside this AM. She continues to have right-sided weakness. She states that yesterday afternoon she started to improve significantly. This morning she returned to what she was yesterday morning. She denies any other issues or concerns at this time. Review of Systems Review of Systems: All systems reviewed & are unremarkable except as noted in Subjective Physical Exam Constitutional: WD/WN, vitals as above cooperative and comfortable Eyes: PERRL, conjunctivae normal, anicteric sclerae ENMT: external ear and nose normal, oropharynx normal Neck: trachea midline, no thyromegaly Respiratory: normal respiratory effort, lungs clear to auscultation Cardiovascular: RRR, no murmur, no edema Heart Sounds: normal S1 and normal S2; no murmur Vessels: no JVD Extremities: no edema Gastrointestinal (Abdomen): normal bowel sounds, soft, nontender, no hepatosplenomegaly Musculoskeletal: Right upper and lower extremity weakness, Skin: no rashes, warm and dry Neurologic: Right upper and lower extremity weakness and decreased sensation. No dysarthria, aphasia, or facial asymmetry. PERRLA Psychiatric: A+Ox3, euthymic affect Results & Data Results & Data Vital Signs (Past 12 Hours) Vital Signs Temp Pulse Pulse Resp BP Pulse Ox O2 Del Method 06/01/23 03:24 36.6 C 58 L 16 149/83 H 98 Room Air 06/01/23 00:06 72 05/31/23 22:38 36.5 C 70 18 146/77 H 99 Room Air 05/31/23 19:03 36.8 C 72 18 150/75 H 98 Room Air Resident Activity Tracking Resident Involvement: Resident Care Provided Care Provided: Adult Hospital Medicine (3) Hypertension Hypertension type: unspecified Qualified Code(s): I10 - Essential (primary) hypertension
[2023-06-01 07:52] LABS: BUN Creatinine Ratio 22.2 (10-20); Calcium 9.2 mg/dl (8.6-10.3); Creatinine Clr Calc Pharmacy 108.9 ml/min; Est GFR (African American) 116.2 ml/min; Est GFR (Non-African American) 100.3 ml/min; Potassium 3.6 mmol/L (3.5-5.1)
[2023-06-01] MEDS: lisinopril 20 MG TAB PO SCH (08:19)
[2023-06-01] MEDS: amLODIPine BESYLATE 5 MG TAB PO SCH (08:19)
[2023-06-01] MEDS: ATORVASTATIN 40 MG TAB PO SCH (08:19)
[2023-06-01] MEDS: FAMOTIDINE 20 MG TAB PO SCH ×2 (08:19→21:15)
[2023-06-01] MEDS: ASPIRIN 81 MG CHEW PO SCH (08:21)
--- NOTE | 2023-06-01 18:44 | Billing Data ---
Date of Service June 01, 2023 Coding Level of Care Code 52088 SUB INP/OBS CARE
--- NOTE | 2023-06-01 18:44 | Billing Data ---
Date of Service June 01, 2023 Coding Level of Care Code 20554 SUB INP/OBS CARE
[2023-06-01] MEDS: ACETAMINOPHEN 325 MG TAB PO PRN (21:15)
--- NOTE | 2023-06-02 06:51 | Hospitalist Progress Note ---
Date of Service June 02, 2023 Assessment & Plan (1) Acute CVA (cerebrovascular accident): (2) Stroke-like symptom: (3) Hypertension: (4) Anxiety: (5) Chronic GERD: (6) Sleep apnea: (7) Hypokalemia: (8) Admitted to intensive care unit: (9) Cerebrovascular accident aborted by administration of thrombolytic agent: (10) Weight loss: Plan Patient is a 58-year-old female with past medical history of GERD, untreated hypertension, untreated sleep apnea, and recent significant weight loss who presented to hospital for sudden onset of headache with right sided arm weakness and numbness that started at 1800 on 05/28/2023. Brain MRI showed acute ischemic stroke of the left posterior capsule. TNK given in the ED. Acute ischemic stroke with right hemiparesis TNK given in the ED administered at 2110. Brain MRI - acute ischemic injury of the left posterior capsule 05/29/2023. TTE was unremarkable A1c normal. Prothrombin gene, beta-2 GPI, FRANCISCO, factor V Leiden, factor VIII, Antithrombin III, protein S are all currently pending at this time. Neurology - stroke likely secondary to hypertensive small vessel ischemic disease. Risk factors - hypertension, untreated sleep apnea, untreated hyperlipidemia. - Should have close follow-up with PCP regarding risk reduction. Continue on aspirin, lisinopril, amlodipine, and atorvastatin. - No arrhythmias noted so far on telemetry since admission. Hypertension Patient was previously on hydrochlorothiazidelisinopril 25 mg - 20 mg. She stopped taking about 1 year ago. Pressure on admission 279/150. Permissive hypertension allowed initially. Currently on lisinopril 20 mg and amlodipine 10 mg. Sleep apnea Was previously prescribed a CPAP machine, stopped using approximately 1 year ago. Should have outpatient follow-up with PCP. Given the fact that patient has had a stroke in the setting of sleep apnea and no significant underlying cause. Weight loss Patient with a 6070 weight loss over the past year. States that this was intentional. Family history of breast cancer with mother diagnosed when she was 50. Should follow-up with PCP if further work-up is needed. Nutrition: Regular Code status: full code Consults: Neurology PT/OT: Yes, recommends inpatient rehab Case management: Yes, patient does not have health insurance at this time, D&L referral placed, awaiting case management's input. Dispo: Med/Surg Thank you for allowing me to participate in the care of your patient. -Dr. Srinivasan Prado PGY2 Admission and Anticipated Discharge Date Admission Date: May 28, 2023 Supervising Physician Co-Signing Physician Notes Resident Physician Supervision Note: I independently interviewed and examined the patient and verified the [place] history and physical, reviewed labs and image studies and agree with resident findings and care plan. Subjective Patient was seen bedside this morning. She continues to have right-sided weakness. She does state that her sensation is intact. Review of Systems Review of Systems: All systems reviewed & are unremarkable except as noted in Subjective Physical Exam Constitutional: WD/WN, vitals as above cooperative and comfortable Eyes: PERRL, conjunctivae normal, anicteric sclerae ENMT: external ear and nose normal, oropharynx normal Neck: trachea midline, no thyromegaly Respiratory: normal respiratory effort, lungs clear to auscultation Cardiovascular: RRR, no murmur, no edema Heart Sounds: normal S1 and normal S2; no murmur Vessels: no JVD Extremities: no edema Gastrointestinal (Abdomen): normal bowel sounds, soft, nontender, no hepatosplenomegaly Musculoskeletal: Right upper and lower extremity weakness, Skin: no rashes, warm and dry Neurologic: Right upper and lower extremity weakness, sensation intact. No dysarthria, aphasia, or facial asymmetry. PERRLA Psychiatric: A+Ox3, euthymic affect Results & Data Results & Data Vital Signs (Past 12 Hours) Vital Signs Temp Pulse Resp BP Pulse Ox O2 Del Method 06/01/23 22:00 36.8 C 69 18 158/80 H 96 Room Air 06/01/23 19:30 37.4 C 77 20 131/61 96 Room Air Resident Activity Tracking Resident Involvement: Resident Care Provided Care Provided: Adult Hospital Medicine (3) Hypertension Hypertension type: unspecified Qualified Code(s): I10 - Essential (primary) hypertension
--- NOTE | 2023-06-02 08:43 | Electrocardiogram Report ---
Test Reason : Blood Pressure : / mmHG Vent. Rate : 072 BPM Atrial Rate : 072 BPM P-R Int : 148 ms QRS Dur : 084 ms QT Int : 412 ms P-R-T Axes : 067 059 059 degrees QTc Int : 451 ms Normal sinus rhythm Normal ECG When compared with ECG of 29-MAY-2023 08:17, No significant change was found Confirmed by Jc Miller ([id number]) on 06/02/2023 8:42:41 AM Referred By: REFERRED SELF Confirmed By:Jc Miller
[2023-06-02] MEDS: lisinopril 20 MG TAB PO SCH (09:17)
[2023-06-02] MEDS: amLODIPine BESYLATE 5 MG TAB PO SCH (09:17)
[2023-06-02] MEDS: ATORVASTATIN 40 MG TAB PO SCH (09:18)
[2023-06-02] MEDS: FAMOTIDINE 20 MG TAB PO SCH ×2 (09:18→21:00)
[2023-06-02] MEDS: ASPIRIN 81 MG CHEW PO SCH (09:19)
[2023-06-02 09:33] LABS: Hematocrit (blood only) 41.1 % (37.0-47.0); Hemoglobin 14.3 g/dl (12.0-16.0); Mean Corpuscular Hemoglobin 28.4 pg (25.0-34.0); Mean Corpuscular Hgb Conc 34.8 g/dL (32.0-36.0); Mean Corpuscular Volume 81.7 fL (80.0-100.0); Mean Platelet Volume 10.1 fL (9.4-12.4); Platelet Count 291 K/uL (130-400); RDW Coefficient of Variation 12.7 % (11.5-14.5); RDW Standard Deviation 37.2 fL (36.4-46.3); Red Blood Count 5.03 M/uL (4.20-5.40); White Blood Count 8.89 K/ul (4.8-10.8)
[2023-06-02 09:50] LABS: BUN Creatinine Ratio 20.3 (10-20); Calcium 9.3 mg/dl (8.6-10.3); Creatinine Clr Calc Pharmacy 93.2 ml/min; Est GFR (African American) 112.8 ml/min; Est GFR (Non-African American) 97.3 ml/min; Magnesium 2.1 mg/dl (1.7-2.4); Potassium 3.4 mmol/L (3.5-5.1)
[2023-06-02] MEDS: ACETAMINOPHEN 325 MG TAB PO PRN (21:00)
--- NOTE | 2023-06-03 06:43 | Hospitalist Progress Note ---
Date of Service June 03, 2023 Assessment & Plan (1) Acute CVA (cerebrovascular accident): (2) Stroke-like symptom: (3) Hypertension: (4) Anxiety: (5) Chronic GERD: (6) Sleep apnea: (7) Hypokalemia: (8) Admitted to intensive care unit: (9) Cerebrovascular accident aborted by administration of thrombolytic agent: (10) Weight loss: Plan 06/03/2023 update: No overall changes to the plan below, patient is currently pending placement but due due to not having insurance is causing issues with placement. Case management have involved and seeking medical assistance for patient to get her placed. No update on possible DC at this time. From a medical standpoint she is well controlled and will be ready to go to rehab as soon as possible. Patient is a 58-year-old female with past medical history of GERD, untreated hypertension, untreated sleep apnea, and recent significant weight loss who presented to hospital for sudden onset of headache with right sided arm weakness and numbness that started at 1800 on 05/28/2023. Brain MRI showed acute ischemic stroke of the left posterior capsule. TNK given in the ED. Acute ischemic stroke with right hemiparesis TNK given in the ED administered at 2110. Brain MRI - acute ischemic injury of the left posterior capsule 05/29/2023. TTE was unremarkable A1c normal. Prothrombin gene, beta-2 GPI, FRANCISCO, factor V Leiden, factor VIII, Antithrombin III, protein S are all currently pending at this time. Neurology - stroke likely secondary to hypertensive small vessel ischemic disease. Risk factors - hypertension, untreated sleep apnea, untreated hyperlipidemia. - Should have close follow-up with PCP regarding risk reduction. Continue on aspirin, lisinopril, amlodipine, and atorvastatin. No arrhythmias noted so far on telemetry since admission. Hypertension Patient was previously on hydrochlorothiazidelisinopril 25 mg - 20 mg. She stopped taking about 1 year ago. Pressure on admission 279/150. Permissive hypertension allowed initially. Currently on lisinopril 20 mg and amlodipine 10 mg. Sleep apnea Was previously prescribed a CPAP machine, stopped using approximately 1 year ago. Should have outpatient follow-up with PCP. Given the fact that patient has had a stroke in the setting of sleep apnea and no significant underlying cause. Weight loss Patient with a 6070 weight loss over the past year. States that this was intentional. Family history of breast cancer with mother diagnosed when she was 50. Should follow-up with PCP if further work-up is needed. Nutrition: Regular Code status: full code Consults: Neurology PT/OT: Yes, recommends inpatient rehab Case management: Yes, patient does not have health insurance at this time, [place] status pending. Dispo: Med/Surg Thank you for allowing me to participate in the care of your patient. -Dr. Srinivasan Prado PGY2 Admission and Anticipated Discharge Date Admission Date: May 28, 2023 Supervising Physician Co-Signing Physician Notes Resident Physician Supervision Note: I independently interviewed and examined the patient and verified the [place] history and physical, reviewed labs and image studies and agree with resident findings and care plan. Subjective Patient was seen bedside this morning. No issues or complaints at this time. Continues to have right-sided weakness. He is frustrated about waiting on placement. Also complains about feeling unsteady with transfers. Review of Systems Review of Systems: All systems reviewed & are unremarkable except as noted in Subjective Physical Exam Constitutional: WD/WN, vitals as above cooperative and comfortable Eyes: PERRL, conjunctivae normal, anicteric sclerae ENMT: external ear and nose normal, oropharynx normal Neck: trachea midline, no thyromegaly Respiratory: normal respiratory effort, lungs clear to auscultation Cardiovascular: RRR, no murmur, no edema Heart Sounds: normal S1 and normal S2; no murmur Vessels: no JVD Extremities: no edema Gastrointestinal (Abdomen): normal bowel sounds, soft, nontender, no hepatosplenomegaly Musculoskeletal: Right upper and lower extremity weakness, Skin: no rashes, warm and dry Neurologic: Right upper and lower extremity weakness, sensation intact. No dysarthria, aphasia, or facial asymmetry. PERRLA Psychiatric: A+Ox3, euthymic affect Results & Data Results & Data Vital Signs (Past 12 Hours) Vital Signs Temp Pulse Resp BP Pulse Ox O2 Del Method 06/02/23 23:50 36.4 C L 62 18 159/73 H 97 Room Air 06/02/23 20:36 36.3 C L 66 18 156/87 H 96 Room Air Resident Activity Tracking Resident Involvement: Resident Care Provided Care Provided: Adult Hospital Medicine (3) Hypertension Hypertension type: unspecified Qualified Code(s): I10 - Essential (primary) hypertension
[2023-06-03] MEDS: amLODIPine BESYLATE 5 MG TAB PO SCH (07:09)
[2023-06-03] MEDS: ATORVASTATIN 40 MG TAB PO SCH (07:09)
[2023-06-03] MEDS: FAMOTIDINE 20 MG TAB PO SCH ×2 (07:09→22:34)
[2023-06-03] MEDS: lisinopril 20 MG TAB PO SCH (07:09)
[2023-06-03] MEDS: ASPIRIN 81 MG CHEW PO SCH (07:11)
[2023-06-03] MEDS: ACETAMINOPHEN 325 MG TAB PO PRN (22:34)
--- NOTE | 2023-06-04 07:39 | Hospitalist Progress Note ---
Date of Service June 04, 2023 Assessment & Plan (1) Acute CVA (cerebrovascular accident): (2) Stroke-like symptom: (3) Hypertension: (4) Anxiety: (5) Chronic GERD: (6) Sleep apnea: (7) Hypokalemia: (8) Admitted to intensive care unit: (9) Cerebrovascular accident aborted by administration of thrombolytic agent: (10) Weight loss: Plan Patient is a 58-year-old female with past medical history of GERD, untreated hypertension, untreated sleep apnea, and recent significant weight loss who presented to hospital for sudden onset of headache with right sided arm weakness and numbness that started at 1800 on 05/28/2023. Brain MRI showed acute ischemic stroke of the left posterior capsule. TNK given in the ED. Acute ischemic stroke with right hemiparesis TNK given in the ED administered at 2110. Brain MRI - acute ischemic injury of the left posterior capsule 05/29/2023. TTE was unremarkable A1c normal. Prothrombin gene, beta-2 GPI, FRANCISCO, factor V Leiden, factor VIII, Antithrombin III, protein S are all currently pending at this time. Neurology - stroke likely secondary to hypertensive small vessel ischemic disease. Risk factors - hypertension, untreated sleep apnea, untreated hyperlipidemia. - Should have close follow-up with PCP regarding risk reduction. Continue on aspirin, lisinopril, amlodipine, and atorvastatin. No arrhythmias noted so far on telemetry since admission. Hypertension Patient was previously on hydrochlorothiazidelisinopril 25 mg - 20 mg. She stopped taking about 1 year ago. Pressure on admission 279/150. Permissive hypertension allowed initially. Currently on lisinopril 20 mg and amlodipine 10 mg. BP fluctuating - follow. Sleep apnea Was previously prescribed a CPAP machine, stopped using approximately 1 year ago. Should have outpatient follow-up with PCP. Given the fact that patient has had a stroke in the setting of sleep apnea and no significant underlying cause. Weight loss Patient with a 6070 weight loss over the past year. States that this was intentional. Family history of breast cancer with mother diagnosed when she was 50. Should follow-up with PCP if further work-up is needed. Nutrition: Regular Code status: full code Consults: Neurology PT/OT: Yes, recommends inpatient rehab Case management: Yes, patient does not have health insurance at this time, [place] status pending. Dispo: Med/Surg Thank you for allowing me to participate in the care of your patient. -Dr. Srinivasan Prado PGY2 Admission and Anticipated Discharge Date Admission Date: May 28, 2023 Supervising Physician Co-Signing Physician Notes Resident Physician Supervision Note: I independently interviewed and examined the patient and verified the [place] history and physical, reviewed labs and image studies and agree with resident findings and care plan. Subjective Patient was seen bedside this morning. No new issues or concerns at this time. Review of Systems Review of Systems: All systems reviewed & are unremarkable except as noted in Subjective Physical Exam 2 Constitutional: WD/WN, vitals as above cooperative and comfortable Eyes: PERRL, conjunctivae normal, anicteric sclerae ENMT: external ear and nose normal, oropharynx normal Neck: trachea midline, no thyromegaly Respiratory: normal respiratory effort, lungs clear to auscultation Cardiovascular: RRR, no murmur, no edema Heart Sounds: normal S1 and normal S2; no murmur Vessels: no JVD Extremities: no edema Gastrointestinal (Abdomen): normal bowel sounds, soft, nontender, no hepatosplenomegaly Skin: no rashes, warm and dry Psychiatric: A+Ox3, euthymic affect Results & Data Results & Data Vital Signs (Past 12 Hours) Vital Signs Temp Pulse Resp BP Pulse Ox O2 Del Method 06/03/23 22:00 36.7 C 72 18 134/80 92 Room Air (3) Hypertension Hypertension type: unspecified Qualified Code(s): I10 - Essential (primary) hypertension
[2023-06-04] MEDS: ATORVASTATIN 40 MG TAB PO SCH (09:51)
[2023-06-04] MEDS: amLODIPine BESYLATE 5 MG TAB PO SCH (09:51)
[2023-06-04] MEDS: ASPIRIN 81 MG CHEW PO SCH (09:51)
[2023-06-04] MEDS: FAMOTIDINE 20 MG TAB PO SCH ×2 (09:51→23:07)
[2023-06-04] MEDS: lisinopril 20 MG TAB PO SCH (09:51)
[2023-06-04 19:53] LABS: Factor 5 Mutation NEGATIVE
--- NOTE | 2023-06-05 06:46 | Hospitalist Progress Note ---
Date of Service June 05, 2023 Assessment & Plan (1) Acute CVA (cerebrovascular accident): (2) Stroke-like symptom: (3) Hypertension: (4) Anxiety: (5) Chronic GERD: (6) Sleep apnea: (7) Hypokalemia: (8) Admitted to intensive care unit: (9) Cerebrovascular accident aborted by administration of thrombolytic agent: (10) Weight loss: Plan Patient is a 58-year-old female with past medical history of GERD, untreated hypertension, untreated sleep apnea, and recent significant weight loss who presented to hospital for sudden onset of headache with right sided arm weakness and numbness that started at 1800 on 05/28/2023. Brain MRI showed acute ischemic stroke of the left posterior capsule. TNK given in the ED. Acute ischemic stroke with right hemiparesis TNK given in the ED administered at 2110. Brain MRI - acute ischemic injury of the left posterior capsule 05/29/2023. TTE was unremarkable A1c normal. Prothrombin gene, FRANCISCO, beta-2 GPI, factor V Leiden, factor VIII, Antithrombin III, protein S are all negative Lupus PTT screen slightly elevated at 43, reach out to hematology who states that if we are concerned for thrombophilia panel to get cardiolipin antibodies. -Patient's stroke most likely not caused by some underlying thrombophilia, will defer further work-up at this time. Neurology - stroke likely secondary to hypertensive small vessel ischemic disease. Risk factors - hypertension, untreated sleep apnea, untreated hyperlipidemia. - Should have close follow-up with PCP regarding risk reduction. Continue on aspirin, lisinopril, amlodipine, and atorvastatin. No arrhythmias noted so far on telemetry since admission. Hypertension Patient was previously on hydrochlorothiazidelisinopril 25 mg - 20 mg. She stopped taking about 1 year ago. Pressure on admission 279/150. Permissive hypertension allowed initially. Currently on lisinopril 20 mg and amlodipine 10 mg. BP fluctuating. Will increase to lisinopril 40mg on 06/06. Will get morning BMP. - follow. Sleep apnea Was previously prescribed a CPAP machine, stopped using approximately 1 year ago. Should have outpatient follow-up with PCP. Given the fact that patient has had a stroke in the setting of sleep apnea and no significant underlying cause. Weight loss Patient with a 6070 weight loss over the past year. States that this was intentional. Family history of breast cancer with mother diagnosed when she was 50. Should follow-up with PCP if further work-up is needed. Nutrition: Regular Code status: full code Consults: Neurology PT/OT: Yes, recommends inpatient rehab Case management: Yes, patient does not have health insurance at this time, [place] status pending. Dispo: Med/Surg Thank you for allowing me to participate in the care of your patient. -Dr. Srinivasan Prado PGY2 Admission and Anticipated Discharge Date Admission Date: May 28, 2023 Supervising Physician Co-Signing Physician Notes Resident Physician Supervision Note: I independently interviewed and examined the patient and verified the [place] history and physical, reviewed labs and image studies and agree with resident findings and care plan. Subjective Patient was seen bedside this morning. Continues to have right-sided weakness. No other issues or concerns at this time. We will follow-up [facility] paperwork Review of Systems Review of Systems: All systems reviewed & are unremarkable except as noted in Subjective Physical Exam Constitutional: WD/WN, vitals as above cooperative and comfortable Eyes: PERRL, conjunctivae normal, anicteric sclerae ENMT: external ear and nose normal, oropharynx normal Neck: trachea midline, no thyromegaly Respiratory: normal respiratory effort, lungs clear to auscultation Cardiovascular: RRR, no murmur, no edema Heart Sounds: normal S1 and normal S2; no murmur Vessels: no JVD Extremities: no edema Gastrointestinal (Abdomen): normal bowel sounds, soft, nontender, no hepatosplenomegaly Musculoskeletal: Right upper and lower extremity weakness, Skin: no rashes, warm and dry Neurologic: Right upper and lower extremity weakness, sensation intact. No dysarthria, aphasia, or facial asymmetry. PERRLA Psychiatric: A+Ox3, euthymic affect Results & Data Results & Data Vital Signs (Past 12 Hours) Vital Signs Temp Pulse Resp BP Pulse Ox O2 Del Method 06/04/23 23:37 36.7 C 65 18 126/51 L 96 Room Air Resident Activity Tracking Resident Involvement: Resident Care Provided Care Provided: Adult Hospital Medicine (3) Hypertension Hypertension type: unspecified Qualified Code(s): I10 - Essential (primary) hypertension
[2023-06-05 06:58] LABS: Anti Nuclear Antibody Screen NEGATIVE (NEGATIVE); Anti-Thrombin III Activity 95 % normal (80-135); B2 Glycoprotein IgA <2.0 U/mL (<20.0); B2 Glycoprotein IgG <2.0 U/mL (<20.0); B2 Glycoprotein IgM 2.6 U/mL (<20.0); PTT LA Screen 43 sec (<=40)
[2023-06-05 09:29] LABS: Lupus Hex Phase (Rflxdonotord) Negative (Negative)
[2023-06-05] MEDS: ATORVASTATIN 40 MG TAB PO SCH (09:48)
[2023-06-05] MEDS: ASPIRIN 81 MG CHEW PO SCH (09:48)
[2023-06-05] MEDS: FAMOTIDINE 20 MG TAB PO SCH ×2 (09:48→21:05)
[2023-06-05] MEDS: lisinopril 20 MG TAB PO SCH (09:48)
[2023-06-05] MEDS: amLODIPine BESYLATE 5 MG TAB PO SCH (09:48)
--- NOTE | 2023-06-06 07:07 | Hospitalist Progress Note ---
Date of Service June 06, 2023 Assessment & Plan (1) Acute CVA (cerebrovascular accident): (2) Stroke-like symptom: (3) Hypertension: (4) Anxiety: (5) Chronic GERD: (6) Sleep apnea: (7) Hypokalemia: (8) Admitted to intensive care unit: (9) Cerebrovascular accident aborted by administration of thrombolytic agent: (10) Weight loss: Plan Patient is a 58-year-old female with past medical history of GERD, untreated hypertension, untreated sleep apnea, and recent significant weight loss who presented to hospital for sudden onset of headache with right sided arm weakness and numbness that started at 1800 on 05/28/2023. Brain MRI showed acute ischemic stroke of the left posterior capsule. TNK given in the ED. Acute ischemic stroke with right hemiparesis s/p TNK Brain MRI - acute ischemic injury of the left posterior capsule 05/29/2023. TTE was unremarkable A1c normal. Prothrombin gene, FRANCISCO, beta-2 GPI, factor V Leiden, factor VIII, Antithrombin III, protein S are all negative Lupus PTT screen slightly elevated at 43, reach out to hematology who states that if we are concerned for thrombophilia panel to get cardiolipin antibodies. -Patient's stroke most likely not caused by some underlying thrombophilia, will defer further work-up at this time. Neurology - stroke likely secondary to hypertensive small vessel ischemic disease. Risk factors - hypertension, untreated sleep apnea, untreated hyperlipidem ia. - Should have close follow-up with PCP regarding risk reduction. Continue on aspirin, lisinopril, amlodipine, and atorvastatin. No arrhythmias noted so far on telemetry since admission. Hypertension Patient was previously on hydrochlorothiazidelisinopril 25 mg - 20 mg. She stopped taking about 1 year ago. Pressure on admission 279/150. Permissive hypertension allowed initially. Blood pressures fluctuating during admission. Increased lisinopril to 40 mg on 06/06. Currently taking lisinopril 40 mg and amlodipine 5 mg at this time. - follow. Sleep apnea Was previously prescribed a CPAP machine, stopped using approximately 1 year ago. Should have outpatient follow-up with PCP. Weight loss 6070 weight loss over the past year. States that this was intentional. Family history of breast cancer with mother diagnosed when she was 50. Should follow-up with PCP if further work-up is needed. Nutrition: Regular Code status: full code Consults: Neurology PT/OT: Yes, recommends inpatient rehab Case management: Yes, patient does not have health insurance at this time, [place] status pending. Filled out [facility] paperwork on 06/06/2023 and faxed to [facility] via case management. Dispo: Med/Surg Thank you for allowing me to participate in the care of your patient. -Dr. Srinivasan Prado PGY2 Admission and Anticipated Discharge Date Admission Date: May 28, 2023 Supervising Physician Co-Signing Physician Notes Resident Physician Supervision Note: I independently interviewed and examined the patient and verified the [place] history and physical, reviewed labs and image studies and agree with resident findings and care plan. Subjective Patient was seen bedside this morning. Continues to have right-sided weakness. No other issues or concerns at this time. Physical Exam Constitutional: WD/WN, vitals as above cooperative and comfortable Eyes: PERRL, conjunctivae normal, anicteric sclerae ENMT: external ear and nose normal, oropharynx normal Neck: trachea midline, no thyromegaly Respiratory: normal respiratory effort, lungs clear to auscultation Cardiovascular: RRR, no murmur, no edema Heart Sounds: normal S1 and normal S2; no murmur Vessels: no JVD Extremities: no edema Gastrointestinal (Abdomen): normal bowel sounds, soft, nontender, no hepatosplenomegaly Skin: no rashes, warm and dry Psychiatric: A+Ox3, euthymic affect Results & Data Results & Data Vital Signs (Past 12 Hours) Vital Signs Temp Pulse Resp BP Pulse Ox O2 Del Method 06/05/23 22:00 36.5 C 69 18 174/92 H 97 Room Air Resident Activity Tracking Resident Involvement: Resident Care Provided Care Provided: Adult Hospital Medicine (3) Hypertension Hypertension type: unspecified Qualified Code(s): I10 - Essential (primary) hypertension
[2023-06-06 07:54] LABS: BUN Creatinine Ratio 18.2 (10-20); Calcium 9.2 mg/dl (8.6-10.3); Creatinine Clr Calc Pharmacy 97.5 ml/min; Est GFR (African American) 114.5 ml/min; Est GFR (Non-African American) 98.8 ml/min
[2023-06-06] MEDS: lisinopril 40 MG TAB PO SCH (10:38)
[2023-06-06] MEDS: FAMOTIDINE 20 MG TAB PO SCH ×2 (10:38→20:25)
[2023-06-06] MEDS: amLODIPine BESYLATE 5 MG TAB PO SCH (10:38)
[2023-06-06] MEDS: ASPIRIN 81 MG CHEW PO SCH (10:38)
[2023-06-06] MEDS: ATORVASTATIN 40 MG TAB PO SCH (10:38)
[2023-06-06] MEDS ORDERED: DOCUSATE SODIUM 100 MG CAP PO ONE (18:39)
[2023-06-07 06:49] LABS: BUN Creatinine Ratio 18.2 (10-20); Creatinine Clr Calc Pharmacy 97.3 ml/min; Est GFR (African American) 114.5 ml/min; Est GFR (Non-African American) 98.8 ml/min; Potassium 3.8 mmol/L (3.5-5.1)
--- NOTE | 2023-06-07 08:12 | Hospitalist Progress Note ---
Date of Service June 07, 2023 Assessment & Plan (1) Acute CVA (cerebrovascular accident): (2) Stroke-like symptom: (3) Hypertension: (4) Anxiety: (5) Chronic GERD: (6) Sleep apnea: (7) Hypokalemia: (8) Admitted to intensive care unit: (9) Cerebrovascular accident aborted by administration of thrombolytic agent: (10) Weight loss: Plan Patient is a 58 y/o female with PMHx of GERD, untreated hypertension, untreated sleep apnea, and recent significant weight loss who presented to hospital for sudden onset of headache with right sided arm weakness and numbness that started at 1800 on 05/28/2023 found to have a left posterior capsule ischemic stroke s/p TNK given in the ED. Patient now HDS and stable for discharge to an inpatient rehab facility. Patient with significant right sided deficits. Would greatly benefit from rehab. Working on arranging as patient without health insurance coverage at this time. #Acute ischemic stroke with right hemiparesis Patient with acute change in neurological status - sudden onset GOLDBERG and right hemiparesis started 05/[address] Head without evidence of hemorrhagic stroke. TNK given in the ED administered at 2110 on 05/28. MRI Brain 05/29 significant for acute ischemic injury of the left posterior capsule. TTE unremarkable. HbA1c normal. Prothrombin gene, FRANCISCO, beta-2 GPI, factor V Leiden, factor VIII, Antithrombin III, protein S are all negative Lupus PTT screen slightly elevated at 43, hematology notes that if we are c oncerned for thrombophilia panel to get cardiolipin antibodies. Patient's stroke most likely not caused by some underlying thrombophilia, will defer further work-up at this time. Neurology - stroke likely secondary to hypertensive small vessel ischemic disease as patient with several risk factors - HTN, HLD, HOLLIE all untreated rec close f/u with PCP Continue risk reduction medications - ASA, amlodipine, lisinopril and atorvastatin #Hypertension Patient was previously on hydrochlorothiazidelisinopril 25 mg - 20 mg. She stopped taking about 1 year ago. Pressure on admission 279/150. Permissive hypertension allowed initially. Patient was started on lisinopril and amlodipine - titreated as indicated. BP controlled with 40 mg lisinopril and 5 mg amlodipine #Sleep apnea Was previously prescribed a CPAP machine, stopped using approximately 1 year ago. Should have outpatient follow-up with PCP. #Weight loss Patient with a 6070 lb weight loss over the past year. States that this was intentional. As this was intentional further work-up is likely not needed. Would f/u with outpatient PCP FENGI: Regular diet Code status: full code Consults: Neurology PT/OT: Recommends inpatient rehab Case management: Yes, patient does not have health insurance at this time, [place] status pending. Filled out [facility] paperwork on 06/06/2023 and faxed to [facility] via case management. Dispo: Med/Surg Admission and Anticipated Discharge Date Admission Date: May 28, 2023 Supervising Physician Co-Signing Physician Notes Resident Physician Supervision Note: I independently interviewed and examined the patient and verified the [place] history and physical, reviewed labs and image studies and agree with resident findings and care plan. Subjective Patient was seen bedside this morning. Continues to have right-sided weakness. No other issues or concerns at this time. Physical Exam Physical Exam: Gen: well appearing female in NAD HEENT: AT NC Resp: no increased work of breathing CV: clinically well perfused Abd: non-distended Skin: no rashes or bruising noted MSK: no obvious deformities Neuro: alert and oriented Psych: appropriate mood and affect Results & Data Results & Data Vital Signs (Past 12 Hours) Vital Signs Temp Pulse Resp BP BP Pulse Ox O2 Del Method 06/07/23 07:30 36.9 C 91 H 16 119/80 90 Room Air 06/07/23 04:00 36.8 C 66 18 118/60 96 Room Air 06/07/23 00:00 36.7 C 69 18 109/70 94 Room Air Laboratory Results 06/02/23 09:05 06/07/23 05:42 Resident Activity Tracking Resident Involvement: Resident Care Provided Care Provided: Adult Hospital Medicine (3) Hypertension Hypertension type: unspecified Qualified Code(s): I10 - Essential (primary) hypertension
[2023-06-07] MEDS: ATORVASTATIN 40 MG TAB PO SCH (09:11)
[2023-06-07] MEDS: lisinopril 40 MG TAB PO SCH (09:11)
[2023-06-07] MEDS: amLODIPine BESYLATE 5 MG TAB PO SCH (09:11)
[2023-06-07] MEDS: FAMOTIDINE 20 MG TAB PO SCH ×2 (09:31→22:01)
[2023-06-07] MEDS: POLYETHYLENE (MIRALAX) 17 GM PACK PO SCH (09:37)
[2023-06-07] MEDS: ASPIRIN 81 MG CHEW PO SCH (12:26)
--- NOTE | 2023-06-08 07:18 | Hospitalist Progress Note ---
Date of Service June 08, 2023 Assessment & Plan (1) Acute CVA (cerebrovascular accident): (2) Stroke-like symptom: (3) Hypertension: (4) Anxiety: (5) Chronic GERD: (6) Sleep apnea: (7) Hypokalemia: (8) Admitted to intensive care unit: (9) Cerebrovascular accident aborted by administration of thrombolytic agent: (10) Weight loss: Plan Patient is a 58 y/o female with PMHx of GERD, untreated HTN, untreated HOLLIE, and untreated HLD who presented to hospital for sudden onset of headache with right sided arm weakness and numbness found to have a left posterior capsule ischemic stroke s/p TNK given in the ED now stable for discharge to an inpatient rehab facility. #Acute left posterior capsular ischemic stroke with right hemiparesis s/p TNK Imaging: CT Head: no evidence of hemorrhagic stroke MRI Brain: acute ischemic injury of the left posterior capsule ECHO: unremarkable Labs: HbA1c normal. Prothrombin gene, FRANCISCO, beta-2 GPI, factor V Leiden, factor VIII, Antithrombin III, protein S all negative. Slightly elevated Lupus PTT screen. Stroke likely occurred in the setting of several uncontrolled HTN, HLD, and HOLLIE as patient discontinued interventions for these approximately one year ago. Lower concern for thrombophilia - hold off on cardiolipin abs for now. Risk reduction medications started as indicated: ASA, amlodipine, lisinopril, and atorvastatin. Recommend outpatient f/u with PCP for optimization of chronic conditions. Routine AM labs not indicated as labs have been unremarkable and she is pending placement #Dispo Planning Patient employed by [employer]. She missed the window to sign up for health insurance, thus she does not have insurance coverage at this time. MA status pending. Filled out [facility] paperwork 06/06/23, which was faxed to [facility] via case management. PT/OT recommending inpatient rehab as patient with significant residual deficits on the right side. She is improving will therapy and would greatly benefit from 3+ hours daily of rehab, which is not attainable while h ospitalized. #Hypertension Pressure on admission 279/150. Permissive hypertension allowed initially. Patient now on lisinopril 40 mg and amlodipine 10 mg. May need to consider addition of a third agent such as chlorthalidone if pressures continue to be high. #Sleep apnea Was previously prescribed a CPAP machine, stopped using approximately 1 year ago. Should have outpatient follow-up with PCP and repeat sleep study to evaluate for CPAP need. FENGI: heart healthy Code status: full Consults: Neurology Dispo: Med/Surg Admission and Anticipated Discharge Date Admission Date: May 28, 2023 Supervising Physician Co-Signing Physician Notes Resident Physician Supervision Note: I independently interviewed and examined the patient and verified the [place] history and physical, reviewed labs and image studies and agree with resident findings and care plan. Subjective Patient was seen bedside this morning. Patient reports that she is now able to wiggle the fingers on her right hand. Continues to have right-sided weakness, but was able to ambulate around the room with assistance yesterday. No other issues or concerns at this time. Review of Systems Review of Systems: See HPI Physical Exam Physical Exam: Gen: well appearing female in NAD HEENT: AT NC Resp: no increased work of breathing CV: clinically well perfused Abd: non-distended Skin: no rashes or bruising noted MSK: no obvious deformities Neuro: alert and oriented Psych: appropriate mood and affect Results & Data Results & Data Vital Signs (Past 12 Hours) Vital Signs Temp Pulse Resp BP Pulse Ox O2 Del Method 06/07/23 23:05 36.6 C 72 18 115/79 97 Room Air Resident Activity Tracking Resident Involvement: Resident Care Provided Care Provided: Adult Hospital Medicine (3) Hypertension Hypertension type: unspecified Qualified Code(s): I10 - Essential (primary) hypertension
[2023-06-08] MEDS: FAMOTIDINE 20 MG TAB PO SCH ×2 (09:20→20:21)
[2023-06-08] MEDS: lisinopril 40 MG TAB PO SCH (09:20)
[2023-06-08] MEDS: ASPIRIN 81 MG CHEW PO SCH (09:20)
[2023-06-08] MEDS: POLYETHYLENE (MIRALAX) 17 GM PACK PO SCH (09:21)
[2023-06-08] MEDS: amLODIPine BESYLATE 5 MG TAB PO SCH (09:21)
[2023-06-08] MEDS: ATORVASTATIN 40 MG TAB PO SCH (09:21)
[2023-06-08] MEDS ORDERED: POLYETHYLENE (MIRALAX) 17 GM PACK PO PRN (09:51)
[2023-06-08] MEDS: ACETAMINOPHEN 325 MG TAB PO PRN (22:20)
--- NOTE | 2023-06-09 08:10 | Hospitalist Progress Note ---
Date of Service June 09, 2023 Assessment & Plan (1) Acute CVA (cerebrovascular accident): (2) Stroke-like symptom: (3) Hypertension: (4) Anxiety: (5) Chronic GERD: (6) Sleep apnea: (7) Hypokalemia: (8) Admitted to intensive care unit: (9) Cerebrovascular accident aborted by administration of thrombolytic agent: (10) Weight loss: Plan Patient is a 58 y/o female with PMHx of GERD, untreated HTN, untreated HOLLIE, and untreated HLD who presented to hospital for sudden onset of headache with right sided arm weakness and numbness found to have a left posterior capsule ischemic stroke s/p TNK given in the ED now stable for discharge to an inpatient rehab facility. #Acute left posterior capsular ischemic stroke with right hemiparesis s/p TNK Imaging: CT Head: no evidence of hemorrhagic stroke MRI Brain: acute ischemic injury of the left posterior capsule ECHO: unremarkable Labs: HbA1c normal. Prothrombin gene, FRANCISCO, beta-2 GPI, factor V Leiden, factor VIII, Antithrombin III, protein S all negative. Slightly elevated Lupus PTT screen. Stroke likely occurred in the setting of several uncontrolled HTN, HLD, and HOLLIE as patient discontinued interventions for these approximately one year ago. Lower concern for thrombophilia - hold off on cardiolipin abs for now. Risk reduction medications started as indicated: ASA, amlodipine, lisinopril, and atorvastatin. Recommend outpatient f/u with PCP for optimization of chronic conditions. Routine AM labs not indicated as labs have been unremarkable and she is pending placement #Dispo Planning Patient employed by [employer]. She missed the window to sign up for health insurance, thus she does not have insurance coverage at this time. MA status pending. Filled out [facility] paperwork 06/06/23, which was faxed to [facility] via case management. PT/OT recommending inpatient rehab as patient with significant residual deficits on the right side. She is improving will therapy and would greatly benefit from 3+ hours daily of rehab, which is not attainable while h ospitalized. #Hypertension Pressure on admission 279/150. Permissive hypertension allowed initially. Patient now on lisinopril 40 mg and amlodipine 10 mg. Has been well controlled. #Sleep apnea Was previously prescribed a CPAP machine, stopped using approximately 1 year ago. Should have outpatient follow-up with PCP and repeat sleep study to evaluate for CPAP need. FENGI: heart healthy Code status: full Consults: Neurology Dispo: Med/Surg Admission and Anticipated Discharge Date Admission Date: May 28, 2023 Supervising Physician Co-Signing Physician Notes I personally examined the patient and verified all [place] points of history and exam, discussed case, and agree with decision making with Dr Giron still waiting on paperwork but improving R sided movement and has walked a little vitals noted nad heent nc at mmm breathing unlabored no accessory muscles good effort skin no rashes no pallor or icterus, ongoing R sided weakness but face now symmetric R arm better gross motor still poor fine motor but better than last week CVA - secondary risk reduction, meds, lifestyle. rehab once able. otherwise as above Subjective Pt seen at bedside. Doing well, no complaints. Would like to take a shower today. Review of Systems Review of Systems: As per above Physical Exam Physical Exam: Gen: well appearing female in NAD HEENT: AT NC Resp: no increased work of breathing CV: clinically well perfused Abd: non-distended Skin: no rashes or bruising noted MSK: no obvious deformities Neuro: alert and oriented Psych: appropriate mood and affect Results & Data Results & Data Vital Signs (Past 12 Hours) Vital Signs Temp Pulse Resp BP Pulse Ox O2 Del Method 06/09/23 07:21 36.6 C 72 16 134/71 96 Room Air Resident Activity Tracking Resident Involvement: Resident Care Provided Care Provided: Adult Hospital Medicine (3) Hypertension Hypertension type: unspecified Qualified Code(s): I10 - Essential (primary) hypertension
[2023-06-09] MEDS: lisinopril 40 MG TAB PO SCH (08:29)
[2023-06-09] MEDS: amLODIPine BESYLATE 5 MG TAB PO SCH (08:29)
[2023-06-09] MEDS: ATORVASTATIN 40 MG TAB PO SCH (08:29)
[2023-06-09] MEDS: FAMOTIDINE 20 MG TAB PO SCH ×2 (08:29→21:33)
[2023-06-09] MEDS: ASPIRIN 81 MG CHEW PO SCH (10:27)
--- NOTE | 2023-06-09 18:24 | Billing Data ---
Date of Service June 09, 2023 Coding Level of Care Code 96329 SUB INP/OBS CARE
--- NOTE | 2023-06-10 07:51 | Hospitalist Progress Note ---
Date of Service June 10, 2023 Assessment & Plan (1) Acute CVA (cerebrovascular accident): Plan: Patient is a 58 y/o female with PMHx of GERD, untreated HTN, untreated HOLLIE, and untreated HLD who presented to hospital for sudden onset of headache with right sided arm weakness and numbness found to have a left posterior capsule ischemic stroke s/p TNK given in the ED now stable for discharge to an inpatient rehab facility. #Acute left posterior capsular ischemic stroke with right hemiparesis s/p TNK Imaging: CT Head: no evidence of hemorrhagic stroke MRI Brain: acute ischemic injury of the left posterior capsule ECHO: unremarkable Labs: HbA1c normal. Prothrombin gene, FRANCISCO, beta-2 GPI, factor V Leiden, factor VIII, Antithrombin III, protein S all negative. Slightly elevated Lupus PTT screen. Stroke likely occurred in the setting of several uncontrolled HTN, HLD, and HOLLIE as patient discontinued interventions for these approximately one year ago. Lower concern for thrombophilia - hold off on cardiolipin abs for now. Risk reduction medications started as indicated: ASA, amlodipine, lisinopril, and atorvastatin. Recommend outpatient f/u with PCP for optimization of chronic conditions. Routine AM labs not indicated as labs have been unremarkable and she is pending placement Continue aspirin, statin #Dispo Planning Patient employed by [employer]. She missed the window to sign up for health insurance, thus she does not have insurance coverage at this time. MA status pending. Filled out [facility] paperwork 06/06/23, which was faxed to [facility] [employer] [facility] via [email or web address]. PT/OT recommending inpatient rehab as patient with significant residual deficits on the right side. She is improving will therapy and would greatly benefit from 3+ hours daily of rehab, which is not attainable while hospitalized. #Hypertension Pressure on admission 279/150. Permissive hypertension allowed initially. Patient now on lisinopril 40 mg and amlodipine 10 mg with better control #Sleep apnea Was previously prescribed a CPAP machine, stopped using approximately 1 year ago. Should have outpatient follow-up with PCP and repeat sleep study to evaluate for CPAP need. FENGI: heart healthy Code status: full Consults: Neurology Dispo: Med/Surg VTE Prophylaxis: Lovenox (2) Stroke-like symptom: (3) Hypertension: (4) Anxiety: (5) Chronic GERD: (6) Sleep apnea: (7) Hypokalemia: (8) Admitted to intensive care unit: (9) Cerebrovascular accident aborted by administration of thrombolytic agent: (10) Weight loss: Admission and Anticipated Discharge Date Admission Date: May 28, 2023 Supervising Physician Co-Signing Physician Notes I personally examined the patient and verified all [place] points of history and exam, discussed case, and agree with decision making with Dr Giron still waiting on paperwork but improving R sided movement and has walked a little more with therapy vitals noted nad heent nc at mmm breathing unlabored no accessory muscles good effort skin no rashes no pallor or icterus, ongoing R sided weakness but face now symmetric CVA - secondary risk reduction, meds, lifestyle. rehab once able. continue PT/OT here in the meantime otherwise as above Subjective Pt seen at bedside this morning. Doing well. Continues to work with PT. Was able to shower yesterday. Review of Systems Review of Systems: As per above Physical Exam Physical Exam: Gen: well appearing female in NAD HEENT: AT NC Resp: no increased work of breathing CV: clinically well perfused Abd: non-distended Skin: no rashes or bruising noted MSK: no obvious deformities Neuro: alert and oriented Psych: appropriate mood and affect Results & Data Results & Data Vital Signs (Past 12 Hours) Vital Signs Temp Pulse Resp BP Pulse Ox O2 Del Method 06/09/23 22:01 36.7 C 64 12 129/73 95 Room Air Resident Activity Tracking Resident Involvement: Resident Care Provided Care Provided: Adult Hospital Medicine (3) Hypertension Hypertension type: unspecified Qualified Code(s): I10 - Essential (primary) hypertension
[2023-06-10] MEDS: amLODIPine BESYLATE 5 MG TAB PO SCH (08:29)
[2023-06-10] MEDS: ATORVASTATIN 40 MG TAB PO SCH (08:29)
[2023-06-10] MEDS: lisinopril 40 MG TAB PO SCH (08:29)
[2023-06-10] MEDS: ASPIRIN 81 MG CHEW PO SCH (10:27)
[2023-06-10] MEDS: FAMOTIDINE 20 MG TAB PO SCH ×2 (10:28→20:23)
--- NOTE | 2023-06-10 13:29 | Billing Data ---
Date of Service June 10, 2023 Coding Level of Care Code 79931 SUB INP/OBS CARE
[2023-06-10] MEDS: ENOXAPARIN INJ 40 MG/0.4 ML SYR SQ SCH (20:15)
--- NOTE | 2023-06-11 08:14 | Hospitalist Progress Note ---
Date of Service June 11, 2023 Assessment & Plan (1) Acute CVA (cerebrovascular accident): Plan: Patient is a 58 y/o female with PMHx of GERD, untreated HTN, untreated HOLLIE, and untreated HLD who presented to hospital for sudden onset of headache with right sided arm weakness and numbness found to have a left posterior capsule ischemic stroke s/p TNK given in the ED now stable for discharge to an inpatient rehab facility. #Acute left posterior capsular ischemic stroke with right hemiparesis s/p TNK Imaging: CT Head: no evidence of hemorrhagic stroke MRI Brain: acute ischemic injury of the left posterior capsule ECHO: unremarkable Labs: HbA1c normal. Prothrombin gene, FRANCISCO, beta-2 GPI, factor V Leiden, factor VIII, Antithrombin III, protein S all negative. Slightly elevated Lupus PTT screen. Stroke likely occurred in the setting of several uncontrolled HTN, HLD, and HOLLIE as patient discontinued interventions for these approximately one year ago. Lower concern for thrombophilia - hold off on cardiolipin abs for now. Risk reduction medications started as indicated: ASA, amlodipine, lisinopril, and atorvastatin. Recommend outpatient f/u with PCP for optimization of chronic conditions. Routine AM labs not indicated as labs have been unremarkable and she is pending placement Continue aspirin, statin #Dispo Planning Patient employed by [employer]. She missed the window to sign up for health insurance, thus she does not have insurance coverage at this time. MA status pending. Filled out [facility] paperwork 06/06/23, which was faxed to [facility] via [email or web address]. PT/OT recommending inpatient rehab as patient with significant residual deficits on the right side. She is improving will therapy and would greatly benefit from 3+ hours daily of rehab, which is not attainable while hospitalized. #Hypertension Pressure on admission 279/150. Permissive hypertension allowed initially. Patient now on lisinopril 40 mg and amlodipine 10 mg with better control #Sleep apnea Was previously prescribed a CPAP machine, stopped using approximately 1 year ago. Should have outpatient follow-up with PCP and repeat sleep study to evaluate for CPAP need. FENGI: heart healthy Code status: full Consults: Neurology Dispo: Med/Surg VTE Prophylaxis: Lovenox (2) Stroke-like symptom: (3) Hypertension: (4) Anxiety: (5) Chronic GERD: (6) Sleep apnea: (7) Hypokalemia: (8) Admitted to intensive care unit: (9) Cerebrovascular accident aborted by administration of thrombolytic agent: (10) Weight loss: Admission and Anticipated Discharge Date Admission Date: May 28, 2023 Supervising Physician Co-Signing Physician Notes I personally examined the patient and verified all [place] points of history and exam, discussed case, and agree with decision making with Dr Giron still waiting on paperwork walked more with therapy vitals noted nad heent nc at mmm breathing unlabored no accessory muscles good effort skin no rashes no pallor or icterus, ongoing R sided weakness but face now symmetric and seems to be having improved gross motor of right arm. CVA - secondary risk reduction, meds, lifestyle. rehab once able. continue PT/OT here in the meantime. Encouraged by her progress thus far. otherwise as above Subjective Pt seen at bedside. No complaints. Continuing to walk halls, work with PT. Review of Systems Review of Systems: As per above Physical Exam Physical Exam: Gen: well appearing female in NAD HEENT: AT NC Resp: no increased work of breathing CV: clinically well perfused Abd: non-distended Skin: no rashes or bruising noted MSK: no obvious deformities Neuro: alert and oriented Psych: appropriate mood and affect Results & Data Results & Data Vital Signs (Past 12 Hours) Vital Signs Temp Pulse Resp BP Pulse Ox O2 Del Method 06/11/23 07:47 36.7 C 71 18 131/72 96 Room Air 06/10/23 22:00 36.4 C L 68 18 144/77 H 95 Room Air Resident Activity Tracking Resident Involvement: Resident Care Provided Care Provided: Adult Hospital Medicine (3) Hypertension Hypertension type: unspecified Qualified Code(s): I10 - Essential (primary) hypertension
[2023-06-11] MEDS: ATORVASTATIN 40 MG TAB PO SCH (08:58)
[2023-06-11] MEDS: amLODIPine BESYLATE 5 MG TAB PO SCH (08:58)
[2023-06-11] MEDS: lisinopril 40 MG TAB PO SCH (08:58)
[2023-06-11] MEDS: FAMOTIDINE 20 MG TAB PO SCH ×2 (10:18→20:13)
[2023-06-11] MEDS: ASPIRIN 81 MG CHEW PO SCH (10:18)
[2023-06-11] MEDS: ENOXAPARIN INJ 40 MG/0.4 ML SYR SQ SCH (18:33)
--- NOTE | 2023-06-11 19:33 | Billing Data ---
Date of Service June 11, 2023 Coding Level of Care Code 65027 SUB INP/OBS CARE
[2023-06-12] MEDS: ATORVASTATIN 40 MG TAB PO SCH (09:33)
[2023-06-12] MEDS: amLODIPine BESYLATE 5 MG TAB PO SCH (09:33)
[2023-06-12] MEDS: FAMOTIDINE 20 MG TAB PO SCH ×2 (09:34→20:08)
[2023-06-12] MEDS: ASPIRIN 81 MG CHEW PO SCH (09:34)
--- NOTE | 2023-06-12 12:08 | Hospitalist Progress Note ---
Date of Service June 12, 2023 Assessment & Plan (1) Acute CVA (cerebrovascular accident): Plan: Patient is a 58 y/o female with PMHx of GERD, untreated HTN, untreated HOLLIE, and untreated HLD who presented to hospital for sudden onset of headache with right sided arm weakness and numbness found to have a left posterior capsule ischemic stroke s/p TNK given in the ED now stable for discharge to an inpatient rehab facility. #Acute left posterior capsular ischemic stroke with right hemiparesis s/p TNK Imaging: CT Head: no evidence of hemorrhagic stroke MRI Brain: acute ischemic injury of the left posterior capsule ECHO: unremarkable Labs: HbA1c normal. Prothrombin gene, FRANCISCO, beta-2 GPI, factor V Leiden, factor VIII, Antithrombin III, protein S all negative. Slightly elevated Lupus PTT screen. Stroke likely occurred in the setting of several uncontrolled HTN, HLD, and HOLLIE as patient discontinued interventions for these approximately one year ago. Lower concern for thrombophilia - hold off on cardiolipin abs for now. Risk reduction medications started as indicated: ASA, amlodipine, lisinopril, and atorvastatin. Recommend outpatient f/u with PCP for optimization of chronic conditions. Routine AM labs not indicated as labs have been unremarkable and she is pending placement Continue aspirin, statin #Dispo Planning Patient employed by [employer]. She missed the window to sign up for health insurance, thus she does not have insurance coverage at this time. MA status pending. Filled out [facility] paperwork 06/06/23, which was faxed to [facility] via [employer]. PT/OT recommending inpatient rehab as patient with significant residual deficits on the right side. She is improving will therapy and would greatly benefit from 3+ hours daily of rehab, which is not attainable while hospitalized. - Hopeful that MA will be approved 06/13 and can begin authorization process #Hypertension Pressure on admission 279/150. Permissive hypertension allowed initially. Patient now on lisinopril 40 mg and amlodipine 10 mg with better control #Sleep apnea Was previously prescribed a CPAP machine, stopped using approximately 1 year ago. Should have outpatient follow-up with PCP and repeat sleep study to evaluate for CPAP need. FENGI: heart healthy Code status: full Consults: Neurology Dispo: Med/Surg VTE Prophylaxis: Lovenox (2) Stroke-like symptom: (3) Hypertension: (4) Anxiety: (5) Chronic GERD: (6) Sleep apnea: (7) Hypokalemia: (8) Admitted to intensive care unit: (9) Cerebrovascular accident aborted by administration of thrombolytic agent: (10) Weight loss: Admission and Anticipated Discharge Date Admission Date: May 28, 2023 Supervising Physician Co-Signing Physician Notes I personally examined the patient and verified all [place] points of history and exam, discussed case, and agree with decision making with Dr Giron still waiting on paperwork frustrated w [employer] as she was trying to cancel and they more or less wouldn't let her vitals noted nad heent nc at mmm breathing unlabored no accessory muscles good effort skin no rashes no pallor or icterus, ongoing R sided weakness but face now symmetric and seems to be having improved gross motor of right arm. CVA - secondary risk reduction, meds, lifestyle. rehab once able. continue PT/OT here in the meantime. showing good progress thus far. otherwise as above Subjective Pt seen at bedside this morning. No complaints. Was able to get up and walk halls yesterday, take a shower. Frustration with insurance process. Review of Systems Review of Systems: As per above Physical Exam Physical Exam: Gen: well appearing female in NAD HEENT: AT NC Resp: no increased work of breathing CV: clinically well perfused Abd: non-distended Skin: no rashes or bruising noted MSK: no obvious deformities Neuro: alert and oriented Psych: appropriate mood and affect Results & Data Results & Data Vital Signs (Past 12 Hours) Vital Signs Temp Pulse Resp BP Pulse Ox O2 Del Method 06/12/23 08:59 36.6 C 87 18 133/83 96 Room Air Resident Activity Tracking Resident Involvement: Resident Care Provided Care Provided: Adult Hospital Medicine (3) Hypertension Hypertension type: unspecified Qualified Code(s): I10 - Essential (primary) hypertension
--- NOTE | 2023-06-12 13:32 | Billing Data ---
Date of Service June 12, 2023 Coding Level of Care Code 32727 SUB INP/OBS CARE
[2023-06-12] MEDS: lisinopril 40 MG TAB PO SCH (14:24)
[2023-06-12] MEDS: ENOXAPARIN INJ 40 MG/0.4 ML SYR SQ SCH (17:41)
--- NOTE | 2023-06-13 07:53 | Hospitalist Progress Note ---
Date of Service June 13, 2023 Assessment & Plan (1) Acute CVA (cerebrovascular accident): Plan: Patient is a 58 y/o female with PMHx of GERD, untreated HTN, untreated HOLLIE, and untreated HLD who presented to hospital for sudden onset of headache with right sided arm weakness and numbness found to have a left posterior capsule ischemic stroke s/p TNK given in the ED now stable for discharge to an inpatient rehab facility. #Acute left posterior capsular ischemic stroke with right hemiparesis s/p TNK Imaging: CT Head: no evidence of hemorrhagic stroke MRI Brain: acute ischemic injury of the left posterior capsule ECHO: unremarkable Labs: HbA1c normal. Prothrombin gene, FRANCISCO, beta-2 GPI, factor V Leiden, factor VIII, Antithrombin III, protein S all negative. Slightly elevated Lupus PTT screen. Stroke likely occurred in the setting of several uncontrolled HTN, HLD, and HOLLIE as patient discontinued interventions for these approximately one year ago. Lower concern for thrombophilia - hold off on cardiolipin abs for now. Risk reduction medications started as indicated: ASA, amlodipine, lisinopril, and atorvastatin. Recommend outpatient f/u with PCP for optimization of chronic conditions. Routine AM labs not indicated as labs have been unremarkable and she is pending placement Continue aspirin, statin #Dispo Planning Patient employed by [employer]. She missed the window to sign up for health insurance, thus she does not have insurance coverage at this time. MA status pending. Filled out [facility] paperwork 06/06/23, which was faxed to [facility] via case management. PT/OT recommending inpatient rehab as patient with significant residual deficits on the right side. She is improving will therapy and would greatly benefit from 3+ hours daily of rehab, which is not attainable while hospitalized. - Hopeful that MA will be approved 06/13 and can begin authorization process #Hypertension Pressure on admission 279/150. Permissive hypertension allowed initially. - Patient now on lisinopril 40 mg and amlodipine 10 mg with better control #Sleep apnea Was previously prescribed a CPAP machine, stopped using approximately 1 year ago. Should have outpatient follow-up with PCP and repeat sleep study to evaluate for CPAP need. FENGI: heart healthy Code status: full Consults: Neurology Dispo: Rehab pending insurance approval VTE Prophylaxis: Lovenox (2) Stroke-like symptom: (3) Hypertension: (4) Anxiety: (5) Chronic GERD: (6) Sleep apnea: (7) Hypokalemia: (8) Admitted to intensive care unit: (9) Cerebrovascular accident aborted by administration of thrombolytic agent: (10) Weight loss: Admission and Anticipated Discharge Date Admission Date: May 28, 2023 Supervising Physician Co-Signing Physician Notes I personally examined the patient and verified all [place] points of history and exam, discussed case, and agree with decision making with Dr Giron sleeping, covered up, looking comfortable, allowed her to rest. vitals noted sleeping, nad. CVA - secondary risk reduction, meds, lifestyle. rehab once able. continue PT/OT here in the meantime. showing good progress thus far. allowed her to rest for today otherwise as above Subjective Pt seen at bedside this morning. Doing well, no complaints. Eating breakfast. Frustration with continued waiting period. Review of Systems Review of Systems: As per above Physical Exam Physical Exam: Gen: well appearing female in NAD HEENT: AT NC Resp: no increased work of breathing CV: clinically well perfused Abd: non-distended Skin: no rashes or bruising noted MSK: no obvious deformities Neuro: alert and oriented Psych: appropriate mood and affect Results & Data Results & Data Vital Signs (Past 12 Hours) Vital Signs Temp Pulse Resp BP Pulse Ox O2 Del Method 06/13/23 07:05 36.4 C L 61 14 124/76 95 Room Air 06/12/23 20:35 36.5 C 68 16 138/81 95 Room Air Resident Activity Tracking Resident Involvement: Resident Care Provided Care Provided: Adult Hospital Medicine (3) Hypertension Hypertension type: unspecified Qualified Code(s): I10 - Essential (primary) hypertension
[2023-06-13] MEDS: lisinopril 40 MG TAB PO SCH (08:27)
[2023-06-13] MEDS: amLODIPine BESYLATE 5 MG TAB PO SCH (08:28)
[2023-06-13] MEDS: ATORVASTATIN 40 MG TAB PO SCH (08:28)
[2023-06-13] MEDS: ASPIRIN 81 MG CHEW PO SCH (08:29)
[2023-06-13] MEDS: FAMOTIDINE 20 MG TAB PO SCH ×2 (08:29→20:40)
[2023-06-13] MEDS: ENOXAPARIN INJ 40 MG/0.4 ML SYR SQ SCH (18:16)
--- NOTE | 2023-06-13 18:39 | Billing Data ---
Date of Service June 13, 2023 Coding Level of Care Code 69440 SUB INP/OBS CARE
--- NOTE | 2023-06-14 07:44 | Hospitalist Progress Note ---
Date of Service June 14, 2023 Assessment & Plan (1) Acute CVA (cerebrovascular accident): Plan: Patient is a 58 y/o female with PMHx of GERD, untreated HTN, untreated HOLLIE, and untreated HLD who presented to hospital for sudden onset of headache with right sided arm weakness and numbness found to have a left posterior capsule ischemic stroke s/p TNK given in the ED now stable for discharge to an inpatient rehab facility. #Acute left posterior capsular ischemic stroke with right hemiparesis s/p TNK Imaging: CT Head: no evidence of hemorrhagic stroke MRI Brain: acute ischemic injury of the left posterior capsule ECHO: unremarkable Labs: HbA1c normal. Prothrombin gene, FRANCISCO, beta-2 GPI, factor V Leiden, factor VIII, Antithrombin III, protein S all negative. Slightly elevated Lupus PTT screen. Stroke likely occurred in the setting of several uncontrolled HTN, HLD, and HOLLIE as patient discontinued interventions for these approximately one year ago. Lower concern for thrombophilia - hold off on cardiolipin abs for now. Risk reduction medications started as indicated: ASA, amlodipine, lisinopril, and atorvastatin. Recommend outpatient f/u with PCP for optimization of chronic conditions. -Routine AM labs not indicated as labs have been unremarkable and she is pending placement -Continue aspirin, statin #Dispo Planning Patient employed by [employer]. She missed the window to sign up for health insurance, thus she does not have insurance coverage at this time. MA status pending. Filled out [facility] paperwork 06/06/23, which was faxed to [employer] via case management. PT/OT recommending inpatient rehab as patient with significant residual deficits on the right side. She is improving will therapy and would greatly benefit from 3+ hours daily of rehab, which is not attainable while hospitalized. - Will check with CM regarding status of medical assistance application #Hypertension Pressure on admission 279/150. Permissive hypertension allowed initially. - Patient now on lisinopril 40 mg and amlodipine 10 mg with better control #Sleep apnea Was previously prescribed a CPAP machine, stopped using approximately 1 year ago. Should have outpatient follow-up with PCP and repeat sleep study to evaluate for CPAP need. FENGI: heart healthy Code status: full Consults: Neurology Dispo: Rehab pending insurance approval VTE Prophylaxis: Lovenox (2) Stroke-like symptom: (3) Hypertension: (4) Anxiety: (5) Chronic GERD: (6) Sleep apnea: (7) Hypokalemia: (8) Admitted to intensive care unit: (9) Cerebrovascular accident aborted by administration of thrombolytic agent: (10) Weight loss: Admission and Anticipated Discharge Date Admission Date: May 28, 2023 Supervising Physician Co-Signing Physician Notes I personally examined the patient and verified all [place] points of history and exam, discussed case, and agree with decision making with Dr Giron no complaints. No new issues. Vitals noted, in general she is awake and alert pleasant no distress. Breathing unlabored no accessory muscle use good effort. Skin shows no rashes no pallor or icterus. Neuro with no new focal deficits. CVA - secondary risk reduction, meds, lifestyle. rehab once able. continue PT/OT here in the meantime. showing good progress thus far. Bureaucracy pending for insurance coverage otherwise as above Subjective Patient seen and examined at bedside. No acute events overnight. Radha has been eating and drinking without issue, denies any pain currently. She expresses her frustrations with waiting for insurance paperwork to be processed and waiting for rehab, etc. She states that she has been ambulating more, but still has to be "intentional" about moving her right leg when walking. Continues to have numbness in right arm but does feel that she is getting some improvement with PT/OT. Review of Systems Review of Systems: As per above Physical Exam Constitutional: WD/WN, vitals as above Eyes: + anicteric sclerae; no conjunctival abnormality ENMT: Ears: no external ear abnormality Nose: no external nose abnormality Moist mucous membranes Respiratory: normal respiratory effort, lungs clear to auscultation Cardiovascular: Rate/Rhythm: regular rate and regular rhythm Extremities: no edema Musculoskeletal: Unable to wiggle toes of right foot, but can lift RLE. Normal strength and motion of Left UE and LE. Skin: no rashes, warm and dry Neurologic: Decreased sensation of right upper and lower extremity, decreased strength. Psychiatric: A+Ox3, euthymic affect Results & Data Results & Data Vital Signs (Past 12 Hours) Vital Signs Temp Pulse Resp BP Pulse Ox O2 Del Method 06/13/23 21:10 36.4 C L 68 19 109/76 97 Room Air Resident Activity Tracking Resident Involvement: Resident Care Provided Care Provided: Adult Hospital Medicine (3) Hypertension Hypertension type: unspecified Qualified Code(s): I10 - Essential (primary) hypertension
[2023-06-14] MEDS: ATORVASTATIN 40 MG TAB PO SCH (08:32)
[2023-06-14] MEDS: ASPIRIN 81 MG CHEW PO SCH (08:32)
[2023-06-14] MEDS: amLODIPine BESYLATE 5 MG TAB PO SCH (08:32)
[2023-06-14] MEDS: FAMOTIDINE 20 MG TAB PO SCH ×2 (08:32→20:10)
[2023-06-14] MEDS: lisinopril 40 MG TAB PO SCH (08:32)
[2023-06-14] MEDS: ENOXAPARIN INJ 40 MG/0.4 ML SYR SQ SCH (17:23)
--- NOTE | 2023-06-14 19:02 | Billing Data ---
Date of Service June 14, 2023 Coding Level of Care Code 93057 SUB INP/OBS CARE
--- NOTE | 2023-06-15 07:54 | Hospitalist Progress Note ---
Date of Service June 15, 2023 Assessment & Plan (1) Acute CVA (cerebrovascular accident): Plan: Patient is a 58 y/o female with PMHx of GERD, untreated HTN, untreated HOLLIE, and untreated HLD who presented to hospital for sudden onset of headache with right sided arm weakness and numbness found to have a left posterior capsule ischemic stroke s/p TNK given in the ED now stable for discharge to an inpatient rehab facility. #Acute left posterior capsular ischemic stroke with right hemiparesis s/p TNK Imaging: CT Head: no evidence of hemorrhagic stroke MRI Brain: acute ischemic injury of the left posterior capsule ECHO: unremarkable Labs: HbA1c normal. Prothrombin gene, FRANCISCO, beta-2 GPI, factor V Leiden, factor VIII, Antithrombin III, protein S all negative. Slightly elevated Lupus PTT screen. Stroke likely occurred in the setting of several uncontrolled HTN, HLD, and HOLLIE as patient discontinued interventions for these approximately one year ago. Lower concern for thrombophilia - hold off on cardiolipin abs for now. -Routine AM labs not indicated as labs have been unremarkable and she is pending placement -Risk reduction medications started as indicated: ASA, amlodipine, li sinopril, and atorvastatin. Recommend outpatient f/u with PCP for optimization of chronic conditions. #Dispo Planning Patient employed by [employer]. She missed the window to sign up for health insurance, thus she does not have insurance coverage at this time. MA status pending. Filled out [facility] paperwork 06/06/23, which was faxed to [facility] via case management. PT/OT recommending inpatient rehab as patient with significant residual deficits on the right side. She is improving will therapy and would greatly benefit from 3+ hours daily of rehab, which is not attainable while hospitalized. - CM following for help with insurance approval #Hypertension Pressure on admission 279/150. Permissive hypertension allowed initially. - Patient now on lisinopril 40 mg and amlodipine 10 mg with better control #Sleep apnea Was previously prescribed a CPAP machine, stopped using approximately 1 year ago. Should have outpatient follow-up with PCP and repeat sleep study to evaluate for CPAP need. FENGI: heart healthy Code status: full Consults: Neurology Dispo: Rehab pending insurance approval VTE Prophylaxis: Lovenox (2) Stroke-like symptom: (3) Hypertension: (4) Anxiety: (5) Chronic GERD: (6) Sleep apnea: (7) Hypokalemia: (8) Admitted to intensive care unit: (9) Cerebrovascular accident aborted by administration of thrombolytic agent: (10) Weight loss: Admission and Anticipated Discharge Date Admission Date: May 28, 2023 Supervising Physician Co-Signing Physician Notes I personally examined the patient and verified all [place] points of history and exam, discussed case, and agree with decision making with Dr Giron sleeping comfortably. Vitals noted, in general she resting and appears no distress. Breathing unlabored no accessory muscle use good effort. Skin shows no rashes no pallor or icterus. resting peacefully. CVA - secondary risk reduction, meds, lifestyle. rehab once able. continue PT/OT here in the meantime. showing good progress thus far. Bureaucracy pending for insurance coverage. allowed to rest for today. otherwise as above Subjective Pt seen at bedside doing well. No complaints. Continues to work with PT and walk halls. Review of Systems Review of Systems: As per above Physical Exam Physical Exam: Gen: well appearing female in NAD HEENT: AT NC Resp: no increased work of breathing CV: clinically well perfused Abd: non-distended Skin: no rashes or bruising noted MSK: no obvious deformities Neuro: alert and oriented Psych: appropriate mood and affect Results & Data Results & Data Vital Signs (Past 12 Hours) Vital Signs Temp Pulse Resp BP Pulse Ox O2 Del Method 06/14/23 21:15 36.6 C 70 19 118/53 L 97 Room Air Resident Activity Tracking Resident Involvement: Resident Care Provided Care Provided: Adult Hospital Medicine (3) Hypertension Hypertension type: unspecified Qualified Code(s): I10 - Essential (primary) hypertension
[2023-06-15] MEDS: ASPIRIN 81 MG CHEW PO SCH (08:22)
[2023-06-15] MEDS: FAMOTIDINE 20 MG TAB PO SCH ×2 (08:23→20:36)
[2023-06-15] MEDS: amLODIPine BESYLATE 5 MG TAB PO SCH (08:23)
[2023-06-15] MEDS: lisinopril 40 MG TAB PO SCH (08:23)
[2023-06-15] MEDS: ATORVASTATIN 40 MG TAB PO SCH (08:24)
--- NOTE | 2023-06-15 15:10 | Billing Data ---
Date of Service June 15, 2023 Coding Level of Care Code 02424 SUB INP/OBS CARE
[2023-06-15] MEDS: ENOXAPARIN INJ 40 MG/0.4 ML SYR SQ SCH (17:17)
--- NOTE | 2023-06-16 07:11 | Hospitalist Progress Note ---
Date of Service June 16, 2023 Assessment & Plan (1) Acute CVA (cerebrovascular accident): Plan: Patient is a 58 y/o female with PMHx of GERD, untreated HTN, untreated HOLLIE, and untreated HLD who presented to hospital for sudden onset of headache with right sided arm weakness and numbness found to have a left posterior capsule ischemic stroke s/p TNK given in the ED now stable for discharge to an inpatient rehab facility. #Acute left posterior capsular ischemic stroke with right hemiparesis s/p TNK Imaging: CT Head: no evidence of hemorrhagic stroke MRI Brain: acute ischemic injury of the left posterior capsule ECHO: unremarkable Labs: HbA1c normal. Prothrombin gene, FRANCISCO, beta-2 GPI, factor V Leiden, factor VIII, Antithrombin III, protein S all negative. Slightly elevated Lupus PTT screen. Stroke likely occurred in the setting of several uncontrolled HTN, HLD, and HOLLIE as patient discontinued interventions for these approximately one year ago. Lower concern for thrombophilia - hold off on cardiolipin abs for now. -Routine AM labs not indicated as labs have been unremarkable and she is pending placement -Risk reduction medications started as indicated: ASA, amlodipine, li sinopril, and atorvastatin. Recommend outpatient f/u with PCP for optimization of chronic conditions. #Dispo Planning Patient employed by [employer] [facility] [address] [employer]. She missed the window to sign up for health insurance, thus she does not have insurance coverage at this time. MA status pending. Filled out [facility] paperwork 06/06/23, which was faxed to [facility] [address] via case management. PT/OT recommending inpatient rehab as patient with significant residual deficits on the right side. She is improving will therapy and would greatly benefit from 3+ hours daily of rehab, which is not attainable while hospitalized. - CM following for help with insurance approval, no new information due to holiday weekend #Hypertension Pressure on admission 279/150. Permissive hypertension allowed initially. - Patient now on lisinopril 40 mg and amlodipine 10 mg with better control #Sleep apnea Was previously prescribed a CPAP machine, stopped using approximately 1 year ago. Should have outpatient follow-up with PCP and repeat sleep study to evaluate for CPAP need. FENGI: heart healthy Code status: full Consults: Neurology Dispo: Rehab pending insurance approval VTE Prophylaxis: Lovenox (2) Stroke-like symptom: (3) Hypertension: (4) Anxiety: (5) Chronic GERD: (6) Sleep apnea: (7) Hypokalemia: (8) Admitted to intensive care unit: (9) Cerebrovascular accident aborted by administration of thrombolytic agent: (10) Weight loss: Admission and Anticipated Discharge Date Admission Date: May 28, 2023 Supervising Physician Co-Signing Physician Notes I personally examined the patient and verified [place] points of history and exam, discussed case, and agree with decision making and plan documented by Dr. Giron. On exam patient appears comfortable, non diaphoretic, conjunctiva clear, mucosa moist, non-labored breathing, lungs clear to auscultation bilaterally, no rales/rhonchi/wheezing, heart with regular rate and rhythm, no murmur appreciated, bowel sounds present and no tenderness in the abdomen. Patient will benefit from rehabilitation, awaiting insurance coverage (application for MA) and subsequent placement in rehab. Subjective Radha is doing well this morning. No new complaints. Still waiting for insurance approval for rehab. Review of Systems Review of Systems: As per above Physical Exam Physical Exam: Gen: well appearing female in NAD HEENT: AT NC Resp: no increased work of breathing CV: clinically well perfused Abd: non-distended Skin: no rashes or bruising noted MSK: no obvious deformities Neuro: alert and oriented Psych: appropriate mood and affect Results & Data Results & Data Vital Signs (Past 12 Hours) Vital Signs Temp Pulse Resp BP Pulse Ox O2 Del Method 06/15/23 20:22 36.6 C 79 16 135/82 96 Room Air Resident Activity Tracking Resident Involvement: Resident Care Provided Care Provided: Adult Hospital Medicine (3) Hypertension Hypertension type: unspecified Qualified Code(s): I10 - Essential (primary) hypertension
[2023-06-16] MEDS: ATORVASTATIN 40 MG TAB PO SCH (08:32)
[2023-06-16] MEDS: amLODIPine BESYLATE 5 MG TAB PO SCH (08:32)
[2023-06-16] MEDS: lisinopril 40 MG TAB PO SCH (08:32)
[2023-06-16] MEDS: ASPIRIN 81 MG CHEW PO SCH (08:33)
[2023-06-16] MEDS: FAMOTIDINE 20 MG TAB PO SCH ×2 (08:34→20:49)
[2023-06-16] MEDS: ENOXAPARIN INJ 40 MG/0.4 ML SYR SQ SCH (17:29)
--- NOTE | 2023-06-17 06:44 | Hospitalist Progress Note ---
Date of Service June 17, 2023 Assessment & Plan (1) Acute CVA (cerebrovascular accident): Plan: Patient is a 58 y/o female with PMHx of GERD, untreated HTN, untreated HOLLIE, and untreated HLD who presented to hospital for sudden onset of headache with right sided arm weakness and numbness found to have a left posterior capsule ischemic stroke s/p TNK given in the ED now stable for discharge to an inpatient rehab facility. #Acute left posterior capsular ischemic stroke with right hemiparesis s/p TNK Imaging: CT Head: no evidence of hemorrhagic stroke MRI Brain: acute ischemic injury of the left posterior capsule ECHO: unremarkable Labs: HbA1c normal. Prothrombin gene, FRANCISCO, beta-2 GPI, factor V Leiden, factor VIII, Antithrombin III, protein S all negative. Slightly elevated Lupus PTT screen. Stroke likely occurred in the setting of several uncontrolled HTN, HLD, and HOLLIE as patient discontinued interventions for these approximately one year ago. Lower concern for thrombophilia - hold off on cardiolipin abs for now. -Routine AM labs not indicated as labs have been unremarkable and she is pending placement -Risk reduction medications started as indicated: ASA, amlodipine, li sinopril, and atorvastatin. Recommend outpatient f/u with PCP for optimization of chronic conditions. #Dispo Planning Patient employed by [employer]. She missed the window to sign up for health insurance, thus she did not have insurance coverage on admission. Filled out [facility] paperwork 06/06/23, which was faxed to [employer] [facility] [employer] via case management. PT/OT recommending inpatient rehab as patient with significant residual deficits on the right side. She is improving will therapy and would greatly benefit from 3+ hours daily of rehab, which is not attainable while hospitalized. - Insurance as of 06/13, plan to [facility] when bed is available #Hypertension Pressure on admission 279/150. Permissive hypertension allowed initially. - Patient now on lisinopril 40 mg and amlodipine 10 mg with better control #Sleep apnea Was previously prescribed a CPAP machine, stopped using approximately 1 year ago. Should have outpatient follow-up with PCP and repeat sleep study to evaluate for CPAP need. FENGI: heart healthy Code status: full Consults: Neurology Dispo: [facility] VTE Prophylaxis: Lovenox (2) Stroke-like symptom: (3) Hypertension: (4) Anxiety: (5) Chronic GERD: (6) Sleep apnea: (7) Hypokalemia: (8) Admitted to intensive care unit: (9) Cerebrovascular accident aborted by administration of thrombolytic agent: (10) Weight loss: Admission and Anticipated Discharge Date Admission Date: May 28, 2023 Supervising Physician Co-Signing Physician Notes I personally examined the patient and verified [place] points of history and exam, discussed case, and agree with decision making and plan documented by Dr. Giron. Patient seated comfortably in chair by window today. VSS. She reports medical clinic manager application was approved. Awaiting referral to rehabilitation. Subjective Radha is doing well this morning. No new complaints. No events overnight. Review of Systems Review of Systems: As per above Physical Exam Physical Exam: Constitutional: well-appearing, no acute distress HEENT: NCAT, no conjunctival injection CV: regular rhythm, no murmur appreciated, extremities well-perfused, no LE edema Resp: CTABL, no wheezes/rales/rhonchi appreciated, no increased work of breathing GI: soft, nondistended, nontender MSK: no gross deformities appreciated Skin: warm, dry, no rash appreciated Neuro: alert, oriented, no focal neurologic deficit appreciated Results & Data Results & Data Vital Signs (Past 12 Hours) Vital Signs Temp Pulse Resp BP Pulse Ox O2 Del Method 06/16/23 19:58 36.7 C 79 18 126/82 94 Room Air Resident Activity Tracking Resident Involvement: Resident Care Provided Care Provided: Adult Hospital Medicine (3) Hypertension Hypertension type: unspecified Qualified Code(s): I10 - Essential (primary) hypertension
[2023-06-17] MEDS: amLODIPine BESYLATE 5 MG TAB PO SCH (08:28)
[2023-06-17] MEDS: lisinopril 40 MG TAB PO SCH (08:29)
[2023-06-17] MEDS: ATORVASTATIN 40 MG TAB PO SCH (08:29)
[2023-06-17] MEDS: FAMOTIDINE 20 MG TAB PO SCH ×2 (08:30→21:27)
[2023-06-17] MEDS: ASPIRIN 81 MG CHEW PO SCH (08:30)
[2023-06-17] MEDS: ENOXAPARIN INJ 40 MG/0.4 ML SYR SQ SCH (17:49)
[2023-06-18] MEDS: lisinopril 40 MG TAB PO SCH (08:18)
[2023-06-18] MEDS: ATORVASTATIN 40 MG TAB PO SCH (08:18)
[2023-06-18] MEDS: amLODIPine BESYLATE 5 MG TAB PO SCH (08:18)
[2023-06-18] MEDS: FAMOTIDINE 20 MG TAB PO SCH (08:18)
[2023-06-18] MEDS: ASPIRIN 81 MG CHEW PO SCH (08:21)
--- NOTE | 2023-06-18 10:16 | Discharge Summary ---
Date of Service June 18, 2023 Admission HPI Per Admitting Provider The patient is a 58-year-old female with a past medical history including GERD, generalized arthritis, hypertension, right knee pain, obesity and sleep apnea. 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 When she arrived to the emergency department and symptoms became apparent, she was made a stroke alert. She underwent an emergent CT scan head which was negative, CTA head and neck which were both negative. Telestroke neuroradiology consult advised administration of TNK, to which patient received, and plans were then made to admit the patient to the ICU. Principal Diagnosis Stroke Discharge Exam Constitutional: well-appearing, no acute distress HEENT: NCAT, no conjunctival injection CV: regular rhythm, no murmur appreciated, extremities well-perfused, no LE edema Resp: CTABL, no wheezes/rales/rhonchi appreciated, no increased work of breathing GI: soft, nondistended, nontender MSK: no gross deformities appreciated Skin: warm, dry, no rash appreciated Neuro: alert, oriented, no focal neurologic deficit appreciated Discharge Data Allergies Allergy/AdvReac Type Severity Reaction Status Date / Time bee venom protein (honey bee) Allergy Severe Anaphylaxis Verified 05/28/23 21:32 Consultations 05/28/23 21:52 ED Decision to Admit Stat 05/28/23 23:56 Consult Event Staff Member Routine 05/29/23 11:10 Consult Neurology Routine Ordered Studies 05/28/23 19:52 CT angio head w con Stat CT angio neck with con Stat CT head/brain wo con Stat 05/29/23 00:49 MR brain wo con Routine 05/29/23 21:00 CT head/brain wo con Stat Laboratory Results WBC 8.89 K/ul (4.8-10.8) 06/02/23 09:05 RBC 5.03 M/uL (4.20-5.40) 06/02/23 09:05 Hgb 14.3 g/dl (12.0-16.0) 06/02/23 09:05 POC Hgb 13.9 g/dl (12.0-16.0) 05/28/23 20:26 Hct 41.1 % (37.0-47.0) 06/02/23 09:05 POC Hct 41 % (37-47) 05/28/23 20:26 MCV 81.7 fL (80.0-100.0) 06/02/23 09:05 MCH 28.4 pg (25.0-34.0) 06/02/23 09:05 MCHC 34.8 g/dL (32.0-36.0) 06/02/23 09:05 RDW Std Deviation 37.2 fL (36.4-46.3) 06/02/23 09:05 RDW Coeff of Tenzin 12.7 % (11.5-14.5) 06/02/23 09:05 Plt Count 291 K/uL (130-400) 06/02/23 09:05 MPV 10.1 fL (9.4-12.4) 06/02/23 09:05 Immature Gran % (Auto) 0.2 % 05/31/23 06:09 Neut % (Auto) 49.8 % 05/31/23 06:09 Lymph % (Auto) 40.2 % 05/31/23 06:09 Nobles % (Auto) 7.2 % 05/31/23 06:09 Eos % (Auto) 2.1 % 05/31/23 06:09 Baso % (Auto) 0.5 % 05/31/23 06:09 Neut # (Auto) 4.17 K/uL (1.40-6.50) 05/31/23 06:09 Lymph # (Auto) 3.37 K/uL (1.2-3.4) 05/31/23 06:09 Nobles # (Auto) 0.60 K/uL (0.11-0.59) H 05/31/23 06:09 Eos # (Auto) 0.18 K/uL (0-0.50) 05/31/23 06:09 Baso # (Auto) 0.04 K/uL (0-0.2) 05/31/23 06:09 Immature Gran # (Auto) 0.02 K/uL (0.01-0.20) 05/31/23 06:09 Absolute Nucleated RBC Cancelled 05/29/23 03:59 Nucleated RBC % (auto) Cancelled 05/29/23 03:59 Neutrophils % (Manual) Cancelled 05/29/23 03:59 Band Neutrophils % Cancelled 05/29/23 03:59 Lymphocytes % (Manual) Cancelled 05/29/23 03:59 Prolymphocyte % Cancelled 05/29/23 03:59 Reactive Lymphs % (Man) Cancelled 05/29/23 03:59 Monocytes % (Manual) Cancelled 05/29/23 03:59 Eosinophils % (Manual) Cancelled 05/29/23 03:59 Basophils % (Manual) Cancelled 05/29/23 03:59 Metamyelocytes % (Man) Cancelled 05/29/23 03:59 Myelocytes % (Man) Cancelled 05/29/23 03:59 Promyelocytes % (Man) Cancelled 05/29/23 03:59 Blast Cells % (Manual) Cancelled 05/29/23 03:59 Plasma Cell % (Manual) Cancelled 05/29/23 03:59 Other Cells % Cancelled 05/29/23 03:59 Nucleated RBC % Cancelled 05/29/23 03:59 Neutrophils # (Manual) Cancelled 05/29/23 03:59 Band Neutrophils # Cancelled 05/29/23 03:59 Total Absolute Neuts Cancelled 05/29/23 03:59 Lymphocytes # (Manual) Cancelled 05/29/23 03:59 Prolymphocyte # Cancelled 05/29/23 03:59 Reactive Lymphs # Cancelled 05/29/23 03:59 Total Abs Lymphocytes Cancelled 05/29/23 03:59 Monocytes # (Manual) Cancelled 05/29/23 03:59 Eosinophils # (Manual) Cancelled 05/29/23 03:59 Basophils # (Manual) Cancelled 05/29/23 03:59 Metamyelocytes # (Man) Cancelled 05/29/23 03:59 Myelocytes # (Manual) Cancelled 05/29/23 03:59 Promyelocytes # (Man) Cancelled 05/29/23 03:59 Blast Cells # (Man) Cancelled 05/29/23 03:59 Plasma Cell # (Manual) Cancelled 05/29/23 03:59 Other Cells # Cancelled 05/29/23 03:59 Nucleated RBCs # (Man) Cancelled 05/29/23 03:59 Hypersegmented Neuts Cancelled 05/29/23 03:59 Hyposegmented Neuts Cancelled 05/29/23 03:59 Hypogranular Neuts Cancelled 05/29/23 03:59 Large Granular Lymphs Cancelled 05/29/23 03:59 # Lrg Granular Lymphs Cancelled 05/29/23 03:59 Hairy Cells Cancelled 05/29/23 03:59 Smudge Cells Cancelled 05/29/23 03:59 Toxic Granulation Cancelled 05/29/23 03:59 Toxic Vacuolation Cancelled 05/29/23 03:59 Dohle Bodies Cancelled 05/29/23 03:59 Sola Rods Cancelled 05/29/23 03:59 Platelet Estimate Cancelled 05/29/23 03:59 Hypogranular Platelets Cancelled 05/29/23 03:59 Giant Platelets Cancelled 05/29/23 03:59 Platelet Satelliting Cancelled 05/29/23 03:59 RBC Morphology Cancelled 05/29/23 03:59 Polychromasia Cancelled 05/29/23 03:59 Hypochromasia Cancelled 05/29/23 03:59 Poikilocytosis Cancelled 05/29/23 03:59 Basophilic Stippling Cancelled 05/29/23 03:59 Anisocytosis Cancelled 05/29/23 03:59 Microcytosis Cancelled 05/29/23 03:59 Macrocytosis Cancelled 05/29/23 03:59 Spherocytes Cancelled 05/29/23 03:59 Pappenheimer Bodies Cancelled 05/29/23 03:59 Sickle Cells Cancelled 05/29/23 03:59 Target Cells Cancelled 05/29/23 03:59 Tear Drop Cells Cancelled 05/29/23 03:59 Ovalocytes Cancelled 05/29/23 03:59 Stomatocytes Cancelled 05/29/23 03:59 [place] Bodies Cancelled 05/29/23 03:59 Echinocytes Cancelled 05/29/23 03:59 Acanthocytes (Spur) Cancelled 05/29/23 03:59 Rouleaux Cancelled 05/29/23 03:59 RBC Agglutinates Cancelled 05/29/23 03:59 Schistocytes Cancelled 05/29/23 03:59 Sezary Cell Cancelled 05/29/23 03:59 PT 11.1 Seconds (9.0-12.0) 05/31/23 06:09 INR 1.0 (0.9-1.1) 05/31/23 06:09 APTT 29.7 Seconds (21.0-31.0) 05/31/23 06:09 PTT Ratio 1.1 05/31/23 06:09 LA PTT Screen 43 sec (<=40) H 05/29/23 03:59 Lupus Hexagonal Phase Negative (Negative) 05/29/23 03:59 APC Resistance 5.0 ratio (>=2.1) 05/29/23 03:59 Protein S Activity 90 % normal (60-140) 05/29/23 03:59 Antithrombin III Activ 95 % normal (80-135) 05/29/23 03:59 Factor V Leiden Mutat NEGATIVE 05/29/23 04:00 Factor V Leiden Interp See Below 05/29/23 04:00 Factor VIII Activity 127 % (55 - 145) 05/29/23 03:59 POC Sodium 138 mmol/L (135-144) 05/28/23 20:26 Sodium 140 mmol/L (136-145) 06/07/23 05:42 POC Potassium 3.9 mmol/L (3.3-5.0) 05/28/23 20:26 Potassium 3.8 mmol/L (3.5-5.1) 06/07/23 05:42 POC Chloride 103 mmol/L (101-112) 05/28/23 20:26 Chloride 105 mmol/L (98-107) 06/07/23 05:42 Carbon Dioxide 29 mmol/L (21-32) 06/07/23 05:42 POC Total CO2 26 mmol/L (24-31) 05/28/23 20:26 Anion Gap 6 (3-11) 06/07/23 05:42 POC Anion Gap 14.0 mmol/L (16-25) L 05/28/23 20:26 POC BUN 8 mg/dl (7-18) 05/28/23 20:26 BUN 12 mg/dl (6-23) 06/07/23 05:42 Creatinine 0.66 mg/dl (0.6-1.2) 06/07/23 05:42 POC Creatinine 0.6 mg/dl (0.6-1.3) 05/28/23 20:26 Est Cr Clr Drug Dosing 97.3 ml/min 06/07/23 05:42 Est GFR ( Amer) 114.5 ml/min 06/07/23 05:42 Est GFR (Non-Af Amer) 98.8 ml/min 06/07/23 05:42 BUN/Creatinine Ratio 18.2 (10-20) 06/07/23 05:42 Glucose 101 mg/dl (70-99(Fasting)) H 06/07/23 05:42 POC Glucose 109 mg/dl (70-99) H 05/30/23 16:20 POC Glucose (other) 114 mg/dl (70-99) H 05/28/23 20:26 Estimat Average Glucose 111 mg/dl 05/29/23 03:59 Hemoglobin A1c 5.5 % (4.5-5.6) 05/29/23 03:59 Calcium 9.0 mg/dl (8.6-10.3) 06/07/23 05:42 POC Ioniz Calcium Nawaf 1.04 mmol/l (1.12-1.32) L 05/28/23 20:26 Phosphorus 4.5 mg/dl (2.5-4.9) 05/31/23 06:09 Magnesium 2.1 mg/dl (1.7-2.4) 06/02/23 09:05 Total Bilirubin 0.9 mg/dl (0.2-1.0) 05/31/23 06:09 Direct Bilirubin 0.1 mg/dl (0-0.2) 05/31/23 06:09 AST 15 U/L (13-39) 05/31/23 06:09 ALT 7 U/L (7-52) 05/31/23 06:09 Alkaline Phosphatase 55 U/L (34-104) 05/31/23 06:09 Troponin I High Sens 12.5 pg/ml (0-14) 05/29/23 18:25 Total Protein 7.4 gm/dl (6.0-8.3) 05/31/23 06:09 Albumin 4.2 gm/dl (3.4-5.0) 05/31/23 06:09 Globulin 3.1 gm/dl (2.5-4.0) 05/28/23 20:13 Albumin/Globulin Ratio 1.4 (0.9-2) 05/28/23 20:13 Triglycerides 250 mg/dl (0-150) H 05/29/23 03:59 Cholesterol 238 mg/dl (0-200) H 05/29/23 03:59 LDL Cholesterol, Calc 141 mg/dl 05/29/23 03:59 VLDL Cholesterol, Calc 50 mg/dl (0-30) H 05/29/23 03:59 HDL Cholesterol 47 mg/dl 05/29/23 03:59 Cholesterol/HDL Ratio 5.1 (0-5) H 05/29/23 03:59 Homocysteine 9.8 umol/L (<10.4) 05/29/23 03:59 Urine Color Yellow 05/28/23 20:50 Urine Appearance Clear (Clear) 05/28/23 20:50 Urine pH 8.0 (4.5-7.5) H 05/28/23 20:50 Ur Specific [place] 1.018 (1.000-1.030) 05/28/23 20:50 Urine Protein 1+ (Negative) H 05/28/23 20:50 Urine Glucose (UA) Negative (Negative) 05/28/23 20:50 Urine Ketones Negative (Negative) 05/28/23 20:50 Urine Blood Negative (Negative) 05/28/23 20:50 Urine Nitrite Negative (Negative) 05/28/23 20:50 Urine Bilirubin Negative (Negative) 05/28/23 20:50 Urine Urobilinogen Negative (Negative) 05/28/23 20:50 Ur Leukocyte Esterase Negative (Negative) 05/28/23 20:50 Urine WBC (Auto) 1-5 /hpf (0-5) 05/28/23 20:50 Urine RBC (Auto) 0-4 /hpf (0-4) 05/28/23 20:50 U Hyaline Cast (Auto) 0 /lpf (0-5) 05/28/23 20:50 U Epithel Cells (Auto) 0-5 /lpf (0-5) 05/28/23 20:50 Urine Bacteria (Auto) Negative (Negative) 05/28/23 20:50 Nasal Screen MRSA (PCR) Negative (Negative) 05/29/23 Unknown FRANCISCO Screen NEGATIVE (NEGATIVE) 05/29/23 03:59 Beta-2-GPI IgG Ab <2.0 U/mL (<20.0) 05/29/23 03:59 Beta-2-GPI IgA Ab <2.0 U/mL (<20.0) 05/29/23 03:59 Beta-2-GPI IgM Ab 2.6 U/mL (<20.0) 05/29/23 03:59 Blood Parasites ID Cancelled 05/29/23 03:59 Prothrombin Gene Mutate NEGATIVE 05/29/23 04:00 Prothromb Gene Comment See Below 05/29/23 04:00 Impressions Chest X-Ray 05/28/23 19:52 XR chest 1V portable CLINICAL HISTORY: neuro deficit, acute stroke suspected TECHNIQUE: Single frontal radiograph of the chest was obtained. Comparison: Comparison is made to chest of 03/08/2018 FINDINGS: No lines and tubes are seen. The cardiomediastinal silhouette is normal. The lungs are clear. No evidence of pleural effusion or pneumothorax. IMPRESSION: No acute chest disease. ACT 112: Negative or not required by law. Electronically signed by: Charlie Richmond M.D. 05/29/2023 7:46 AM Head CTA 05/28/23 19:52 CR Exam(s): CTA HEAD With Contrast IV Amt: 120ml EXAM: CT Angiography Head With Intravenous Contrast CLINICAL HISTORY: Reason for exam: neuro deficit, acute stroke suspected. TECHNIQUE: Axial computed tomographic angiography images of the head with intravenous contrast. CTDI is 47.42 mGy and DLP is 871.05 mGy-cm. Automated exposure control was utilized for the study. A dose lowering technique was utilized adhering to the principles of ALARA. MIP reconstructed images were created and reviewed. CONTRAST: Patient received 120ml of IV contrast COMPARISON: None FINDINGS: Right internal carotid artery: Minimal atherosclerotic calcification in the distal right ICA. No significant stenosis. No aneurysm. Right anterior cerebral artery: Unremarkable. No occlusion or significant stenosis. No aneurysm. Right middle cerebral artery: Unremarkable. No occlusion or significant stenosis. No aneurysm. Right posterior cerebral artery: Unremarkable. No occlusion or significant stenosis. No aneurysm. Right vertebral artery: Unremarkable as visualized. Left internal carotid artery: Minimal atherosclerotic calcification in the distal left ICA. No significant stenosis. No aneurysm. Left anterior cerebral artery: Unremarkable. No occlusion or significant stenosis. No aneurysm. Left middle cerebral artery: Unremarkable. No occlusion or significant stenosis. No aneurysm. Left posterior cerebral artery: Unremarkable. No occlusion or significant stenosis. No aneurysm. Left vertebral artery: Unremarkable as visualized. Basilar artery: Unremarkable. No occlusion or significant stenosis. No aneurysm. IMPRESSION: No significant stenosis, occlusion, or aneurysm in the central or large intracranial arteries. Communications: Call Doctor Stroke Electronically signed by: Vika Martinez M.D. 05/28/23 20:52 PM Neck CTA 05/28/23 19:52 CR Exam(s): CTA NECK With Contrast IV Amt: 120ml EXAM: CT Angiography Neck With Intravenous Contrast CLINICAL HISTORY: Reason for exam: neuro deficit, acute stroke suspected. TECHNIQUE: Routine carotid CT angiography protocol was performed with intravenous contrast. NASCET criteria using the distal ICAs for comparison were used for evaluation of stenoses. CTDI is 11.8 mGy and DLP is 448.99 mGy-cm. Automated exposure control was utilized for the study. A dose lowering technique was utilized adhering to the principles of ALARA. MIP reconstructed images were created and reviewed. CONTRAST: Patient received 120ml of IV contrast COMPARISON: None FINDINGS: VASCULATURE: Right common carotid artery: Unremarkable. No occlusion or significant stenosis. No dissection. Right internal carotid artery: Mild atherosclerotic calcification in the right carotid bulb and proximal right ICA. No significant stenosis. No dissection. Right external carotid artery: Unremarkable. No occlusion. Right vertebral artery: Unremarkable. No occlusion or significant stenosis. No dissection. Left common carotid artery: Unremarkable. No occlusion or significant stenosis. No dissection. Left internal carotid artery: Mild atherosclerotic calcification in the left carotid bulb. No significant stenosis. No dissection. Left external carotid artery: Unremarkable. No occlusion. Left vertebral artery: The left vertebral artery arises directly from the aortic arch, normal variant. No occlusion or significant stenosis. No dissection. NECK: Bones/joints: Mild degenerative changes of the spine. Soft tissues: Unremarkable. Lung apices: Clear. CAROTID STENOSIS REFERENCE USING NASCET CRITERIA: % ICA stenosis = (1 - narrowest ICA diameter/diameter of distal cervical ICA) x 100. Mild - <50% stenosis. Moderate - 50-69% stenosis. Severe - 70-94% stenosis. Near occlusion - 95-99% stenosis. Occluded - 100% stenosis. IMPRESSION: No significant stenosis, occlusion, or dissection. Communications: Call Doctor Stroke Electronically signed by: Vika Martinez M.D. 05/28/23 20:48 PM Brain MRI 05/29/23 00:49 CR Exam(s): MRI HEAD Without Contrast EXAM: MR Head Without Intravenous Contrast CLINICAL HISTORY: Reason for exam: CVA. TECHNIQUE: Magnetic resonance images of the head/brain without intravenous contrast in multiple planes. COMPARISON: Comparison made to prior noncontrast head CT from May 28, 2023. FINDINGS: Brain: There is no acute ischemic injury with him the left posterior capsule with mild cytotoxic edema, without evidence of hemorrhagic transformation. Mild nonspecific white matter changes. The flow voids at the base of the brain are intact. Large right choroidal fissure cyst. No mass. No hemorrhage. Ventricles: Unremarkable. No ventriculomegaly. Bones/joints: Hyperostosis frontalis interna. Benign bony exostosis of the right frontal bone. Sinuses: Chronic ethmoid sinusitis. No acute sinusitis. Mastoid air cells: There is a small moderate fluid within the mastoid air No mastoid effusion. Orbits: Unremarkable as visualized. IMPRESSION: There is an acute ischemic injury of the left posterior capsule without evidence of hemorrhagic transformation. Communications: Verify Receipt with Nurse Electronically signed by: Chyna Gamboa MD 05/29/23 06:[address] 05/29/23 21:00 Exam(s): CT HEAD Without Contrast EXAM: CT Head Without Intravenous Contrast CLINICAL HISTORY: Reason for exam: 24 hour post TNK- stat for read only. TECHNIQUE: Axial computed tomography images of the head/brain without intravenous contrast. CTDI is 38.31 mGy and DLP is 703.85 mGy-cm. Automated exposure control was utilized for the study. A dose lowering technique was utilized adhering to the principles of ALARA. COMPARISON: Comparison made to prior brain MRI from May 29, 2023. FINDINGS: Brain: There is an acute ischemic injury of the left capsule with moderate cytotoxic edema. No evidence of hemorrhagic transformation. No hemorrhage. Mild nonspecific white light or changes. Large right choroidal fissure cyst. 309.3 x 7.8 mm. Ventricles: Unremarkable. No ventriculomegaly. Bones/joints: Benign bony exostosis of the right frontal bone. No acute fracture. Soft tissues: Unremarkable. Sinuses: Unremarkable as visualized. No acute sinusitis. Mastoid air cells: Unremarkable as visualized. No mastoid effusion. IMPRESSION: Acute ischemic injury of the left capsule without evidence of hemorrhagic transformation. Electronically signed by: Chyna Gamboa MD 05/29/23 23:19 PM Hospital Course (1) Acute CVA (cerebrovascular accident): Patient is a 58 y/o female with PMHx of GERD, untreated HTN, untreated HOLLIE, and untreated HLD who presented to hospital for sudden onset of headache with right sided arm weakness and numbness found to have a left posterior capsule ischemic stroke s/p TNK given in the ED now stable for discharge to an inpatient rehab facility. #Acute left posterior capsular ischemic stroke with right hemiparesis s/p TNK with acute ischemia and cerebral edema Imaging: CT Head: no evidence of hemorrhagic stroke MRI Brain: acute ischemic injury of the left posterior capsule ECHO: unremarkable Labs:HbA1c normal. Prothrombin gene, FRANCISCO, beta-2 GPI, factor V Leiden, factor VIII, Antithrombin III, protein S all negative. Slightly elevated Lupus PTT screen. Stroke likely occurred in the setting of several uncontrolled HTN, HLD, and HOLLIE as patient discontinued interventions for these approximately one year ago. Lower concern for thrombophilia - hold off on cardiolipin abs for now. -Routine AM labs not indicated as labs have been unremarkable and she is pending placement -Risk reduction medications started as indicated: ASA, amlodipine, lisinopril, and atorvastatin. Recommend outpatient f/u with PCP for optimization of chronic conditions. #Dispo Planning Patient employed by [employer]. She missed the window to sign up for health insurance, thus she did not have insurance coverage on admission. Filled out [facility] paperwork 06/06/23, which was faxed to [employer] via case management. PT/OT recommending inpatient rehab as patient with significant residual deficits on the right side. She is improving will therapy and would greatly benefit from 3+ hours daily of rehab, which is not attainable while hospitalized. - Will go to [facility] #Hypertension s/p HTN emergency Pressure on admission 279/150. Permissive hypertension allowed initially. - Patient now on lisinopril 40 mg and amlodipine 40 mg with better control #Sleep apnea Was previously prescribed a CPAP machine, stopped using approximately 1 year ago. Should have outpatient follow-up with PCP and repeat sleep study to evaluat e for CPAP need. (2) Stroke-like symptom: (3) Hypertension: (4) Anxiety: (5) Chronic GERD: (6) Sleep apnea: (7) Hypokalemia: (8) Admitted to intensive care unit: (9) Cerebrovascular accident aborted by administration of thrombolytic agent: (10) Weight loss: (11) Acute cerebral ischemia: (12) Cerebral edema: (13) Hypertensive emergency: Total Time Total Time Spent Total Time Spent (In Minutes): See attending attestation Discharge Plan Discharge Items Patient Disposition: Transfer Inpatient Rehab Fac Reason For Visit: CVA, POST TNK IN ED Discharge Diagnosis: CVA Activity: Per Instructions section Non-emergency contact: Primary Care Provider Call non-emergency contact if: you have any medication questions and your tem perature is above 101.5 Follow-up/Referrals: Svitlana Brooks MD [Resident] - PCP,NO [Primary Care Provider] - Diet: Heart Healthy Addtl Attending Provider Instructions: Patient is a 58 y/o female with PMHx of GERD, untreated HTN, untreated HOLLIE, and untreated HLD who presented to hospital for sudden onset of headache with right sided arm weakness and numbness found to have a left posterior capsule ischemic stroke s/p TNK given in the ED now stable for discharge to an inpatient rehab facility. #Acute left posterior capsular ischemic stroke with right hemiparesis s/p TNK Imaging: CT Head: no evidence of hemorrhagic stroke MRI Brain: acute ischemic injury of the left posterior capsule ECHO: unremarkable Labs:HbA1c normal. Prothrombin gene, FRANCISCO, beta-2 GPI, factor V Leiden, factor VIII, Antithrombin III, protein S all negative. Slightly elevated Lupus PTT screen. Stroke likely occurred in the setting of several uncontrolled HTN, HLD, and HOLLIE as patient discontinued interventions for these approximately one year ago. Lower concern for thrombophilia - hold off on cardiolipin abs for now. -Routine AM labs not indicated as labs have been unremarkable and she is pending placement -Risk reduction medications started as indicated: ASA, amlodipine, lisinopril, and atorvastatin. Recommend outpatient f/u with PCP for optimization of chronic conditions. #Dispo Planning Patient employed by [employer]. She missed the window to sign up for health insurance, thus she did not have insurance coverage on admission. Filled out [facility] paperwork 06/06/23, which was faxed to [employer] via case management. PT/OT recommending inpatient rehab as patient with significant residual deficits on the right side. She is improving will therapy and would greatly benefit from 3+ hours daily of rehab, which is not attainable while hospitalized. - [facility] when bed is available #Hypertension Pressure on admission 279/150. Permissive hypertension allowed initially. - Patient now on lisinopril 40 mg and amlodipine 40 mg with better control #Sleep apnea Was previously prescribed a CPAP machine, stopped using approximately 1 year ago. Should have outpatient follow-up with PCP and repeat sleep study to evaluate for CPAP need. Pending Studies at Discharge: No Stand-Alone Forms: My [facility], Medications to Prevent Stroke Skilled Items Patient informed of condition?: Yes DNR: No Discharge Level of Care: Acute rehab Communicable Disease: No Discharge Prognosis: Improving Lines: None Urinary Catheter: No Medications and DC Order Prescriptions: New atorvastatin 40 mg Tablet 40 mg PO QAM 30 Days Qty: 30 0RF amlodipine [Norvasc] 5 mg Tablet 10 mg PO QAM 30 Days Qty: 60 0RF famotidine 20 mg Tablet 20 mg PO BID 30 Days Qty: 60 0RF aspirin [Children's Aspirin] 81 mg Tablet,Chewable 81 mg PO DAILY 30 Days Qty: 30 0RF lisinopril [Zestril] 40 mg Tablet 40 mg PO QAM 30 Days Qty: 30 0RF Discharge Orders: Discharge Order (Routine); Ordered 06/18/23 Ordered By: Cindy Giron Admission Data Admit Date/Time: 05/28/23 22:31 Attending Provider: Marylin Lazo Admit Provider: Guillermo Saavedra Primary Care Provider: PCP,NO [facility] Edmund [place] ; [facility] ; Guillermo [facility]avedra ; Isrrael Cortez Other Interventions: Discharge Summary Assessment (RN) Last Done: 06/18/23 10:32 Supervising Physician Co-Signing Physician Notes I personally examined the patient and verified [place] points of history and exam, discussed case, and agree with decision making and plan documented by Dr. Giron. Patient seated comfortably in chair by window today, Patient appears comfortable, right arm in sling, lungs clear b/l to auscultation, regular rate and rhythm, no acute distress. Patient discharged to rehabilitation.
== END 2023-06-18 13:00 | DRG 61 ==
LOC: ED 19:49 → SUATTDRO 22:31 → 1E 22:31 → 2S 05-30 14:57 → 3N 06-01 22:35 → 2W 06-02 05:30 → 3W 06-08 15:08